=== PATIENT | female | born 1930 | race Caucasian/White ===

== ENCOUNTER 2018-02-24 14:59 | Inpatient (IN) ==
--- NOTE | 2018-02-24 16:28 | XRay Report ---
CLINICAL INFORMATION: Trauma COMPARISON: 03/26/2017 FINDINGS: Moderate cardiomegaly is unchanged. Mediastinum and pulmonary vessels are normal. COPD changes with interstitial fibrosis in the mid and both lower lungs again noted. No new pulmonary abnormalities. No effusions IMPRESSION: Moderate cardiomegaly COPD the interstitial fibrosis in the left mid and both lower lungs stable. No acute disease no posttraumatic change Interpreted and Authenticated by: Papa Monique 02/24/18
--- NOTE | 2018-02-24 16:30 | Cat Scan Report ---
CLINICAL INFORMATION: Fall - now with confusion COMPARISON: 02/22/2018 TECHNIQUE: 2.5 mm helical slices were obtained in the skull base to vertex. Following reconstruction, axial reformatted images were reviewed at bone and parenchymal windows. The exam was performed using radiation dose optimization techniques including, but not limited to, automated exposure control, adjustment of the mA and/or kV according to patient size and use of iterative reconstruction technique. FINDINGS: The ventricles, sulci, fissures, and cisterns are symmetrically enlarged compatible with mild age-related atrophy - no extra-axial fluid collections appreciated. Patchy chronic ischemic changes in the deep cerebral white matter are stable. There is no intracerebral hemorrhage, mass effect or edema. Bone windows no fracture or other osseous abnormality IMPRESSION: Mild atrophy and patchy chronic ischemic changes in the cerebral white matter, expected for age, are stable. Interpreted and Authenticated by: Papa Monique 02/24/18
[2018-02-24 16:39] LABS: Mean Cell Volume 91.6 fL (80.0-100.0); Mean Corpuscular HGB Conc 33.4 g/dL (31.0-36.0); Mean Corpuscular Hemoglobin 30.6 pg (26.0-34.0); Platelet Count 231 K/mcL (140-440); RBC 4.35 M/mcL (4.00-5.20); Red Cell Distribution Width 14.1 % (11.5-14.5)
[2018-02-24 16:50] LABS: Appearance,Urine CLEAR; Bacteria,Urine 0 /hpf (0); Bilirubin,Urine NEG (NEG); Color,Urine YELLOW; Glucose,Urine (UA) NEGATIVE (NEG); Leukocyte Esterase,Urine 25 /uL (NEG); Mucus,Urine FEW /hpf (0); Protein,Urine NEG (NEG); Specific Gravity,Urine 1.014 (1.000-1.035); Urine Amorphous Crystals FEW /hpf (0); Urine Blood 0.03 mg/dL (<0.03); Urine Hyaline Cast 1 /lpf (0-2); Urine RBC 2 /hpf (0-1); Urine Squamous Epithelial Cell < 1 /hpf (0-4); Urine WBC 25 /hpf (0-4); Urobilinogen,Urine NEG (NEG)
[2018-02-24 16:59] LABS: ALT/SGPT 12 U/l (0-40); Albumin 4.3 gm/dL (3.2-5.2); Albumin/Globulin Ratio 1.3 (1.0-2.3); Alkaline Phosphatase 66 U/L (39-117); Blood Urea Nitrogen 27 mg/dl (8-23)
[2018-02-24 17:09] LABS: Band Neutrophils % 2 % (0-10); Lymphocytes % 8 % (15-49); Monocytes % (Manual) 6 % (1-12); Platelet Estimate NORMAL (NORMAL); RBC Morphology NORMAL (NORMAL); Segmented Neutrophils % 84 % (38-78)
--- NOTE | 2018-02-24 17:15 | Emergency Department Note ---
Weakness HPI - General Chief complaint: Weakness Stated complaint: fall, weakness, unable to care for self Time Seen by Provider: 02/24/18 15:49 Source: patient, EMS Mode of arrival: EMS Limitations: no limitations - History of Present Illness HPI Narrative: This 87-year-old female comes emergency room after a friend of a family member ( patient's son that not long ago and who checks on patient) found patient in the same describes that she had been dressed and when she was sent home from this emergency room 2 days ago. She was acting like she was eating the length off of her close. She had bottles of shampoo etc. around her. He believes that she had been in the bathtub for a prolonged period of time at least since 7 this morning but uncertain exactly. There is report that there were feces in multiple places in the home (several staff members were told these were human feces; social science teacher documented cat feces). Because of her circumstances, clinical social worker was consulted early on in her care and recommended that this patient not be returned to her home due to self-care deficit. Also, she receives Meals On Wheels, and there was food in prepared Meals on Wheels 4 packages in her house and uneaten. REVIEW OF SYSTEMS: Totally unreliable. Patient gave at least 3 different descriptions is why she was here in the emergency room 2 different staff members including myself. She does not seem to consistently indicate pain although to me indicated she had some in her left hip bone area but pointed to her left anterior superior iliac spine area and that there was a lump there. I could not stimulate pain or identify cause or source or lump in the area. - Related Data Home Medications Medication Instructions Recorded Confirmed ALPRAZolam [Xanax] 1 mg PO BIDP PRN 04/18/16 02/22/18 Previous Rx's Medication Instructions Recorded Doxycycline Hyclate [Vibramycin] 100 mg PO BID #14 cap 11/07/17 Lisinopril [Zestril] 2.5 mg PO DAILY #30 tab 11/07/17 Ondansetron HCl [Zofran ODT] 4 mg SL Q4-6HP PRN #14 tab 02/03/18 Amoxicillin 500 mg PO Q12H #14 tab 02/22/18 Allergies Allergy/AdvReac Type Severity Reaction Status Date / Time codeine AdvReac Mild Other Verified 02/24/18 15:04 Sulfa (Sulfonamide AdvReac Mild Congested Verified 02/24/18 15:04 Antibiotics) Past Medical History - Past Medical History [facility] Narrative: All Active Problems Urinary tract infection (Acute) Vertebral compression fracture (Acute) Community acquired pneumonia (Acute) Bladder infection, acute (Acute) Fall from slip, trip, or stumble (Acute) Contusion of face (Acute) Contusion of lip, initial encounter (Acute) Wedge compression fracture of T1 vertebra with routine healing (Acute) Traumatic compression fracture of T8 thoracic vertebra (Acute) Syncope due to orthostatic hypotension (Acute) Scalp laceration (Acute) Closed head injury (Acute) Fall (Acute) Lung disease (Acute) Pericardial effusion (Acute) Cardiomegaly (Acute) Hydroureter (Acute) Hydronephrosis (Acute) Kidney stone on right side (Acute) History of tonsillectomy and adenoidectomy (Acute) H/O: hysterectomy (Acute) Cataracts, bilateral (Acute) H/O knee surgery (Acute) History of hip surgery (Acute) Hypothyroidism (Acute) Depression (Acute) COPD (chronic obstructive pulmonary disease) (Acute) Anxiety (Acute) Hyperlipemia (Acute) Pulmonary fibrosis (Chronic) Dementia Past Surgical History History of tonsillectomy and adenoidectomy (Acute) H/O: hysterectomy (Acute) H/O knee surgery (Acute) History of hip surgery (Acute) Family History Mother Malignant neoplasm of ovary Father Family history of malignant neoplasm of stomach Medical history: Reports: COPD, hyperlipidemia, thyroid disease (Was low in the past but not currently on any medication or replacement.), TIA, other ( pulmonary fibrosis. Bilateral cataracts (surgically treated). NO BLOOD THINNERS aspirin.). Denies: cancer, coronary artery disease, DM, hypertension ( Sometimes has had low blood pressure.), myocardial infarction, osteoporosis Psychiatric history: Reports: anxiety, depression SHOW CARD LETTERER history: Reports: non-contributory Surgical history ED: Reports: appendectomy, cataract (Bilateral), hip replacement (Bilateral replacement. 2004), hysterectomy, knee replacement, orthopedic, other (knee. Back surgery 1970 at L4-5), tonsillectomy (With adenoidectomy) - Social History smoking status: Former smoker Alcohol use: Reports: None Drug use: Reports: none. Denies: marijuana Physical Exam Limitations: no limitations General appearance: alert, in no apparent distress Head: atraumatic, normocephalic Eye: Present: EOMI Neck: Present: trachea midline. Absent: lymphadenopathy, thyromegaly Respiratory: Present: normal lung sounds bilaterally. Absent: respiratory distress, wheezes, stridor, accessory muscle use, prolonged expiratory phase Cardiovascular: Present: regular rate, normal rhythm. Absent: systolic murmur, diastolic murmur Abdominal: Present: soft. Absent: distention, tenderness, guarding, rebound, rigidity, organomegaly, mass Extremities: Absent: pedal edema, pretibial edema, calf tenderness Back: Absent: spinous process tenderness Neurological: Present: alert Patient oriented to: Present: person. Absent: place, time Speech: Present: fluid speech. Absent: receptive aphasia, expressive aphasia Cranial nerves: EOM function (II, III, IV, ): Normal, tongue deviation (XII): Normal Psychiatric: Present: normal affect, normal mood. Absent: depressed, agitated, anxious Skin: Present: warm, dry Course Vital Signs Temperature 98.0 F 02/24/18 15:00 Pulse Rate 90 02/24/18 15:00 Respiratory Rate 20 02/24/18 15:00 Blood Pressure 184/119 02/24/18 15:00 Pulse Oximetry (%) 96 02/24/18 15:00 Temperature 98.0 F 02/24/18 15:00 Pulse Rate 90 02/24/18 15:00 Respiratory Rate 20 02/24/18 15:00 Blood Pressure 184/119 02/24/18 15:00 Pulse Oximetry (%) 96 02/24/18 15:00 Weakness - Lab Data Result diagrams: 02/24/18 15:50 02/24/18 15:50 Lab Results 02/24/18 02/24/18 02/24/18 Range/Units 15:48 15:50 15:50 WBC 12.5 H (4.5-11.0) K/mcL RBC 4.35 (4.00-5.20) M/mcL Hgb 13.3 (12.0-15.0) g/dL Hct 39.9 (36.0-48.0) % MCV 91.6 (80.0-100.0) fL MCH 30.6 (26.0-34.0) pg MCHC 33.4 (31.0-36.0) g/dL RDW 14.1 (11.5-14.5) % Plt Count 231 (140-440) K/mcL MPV 8.6 (7.4-10.4) fL Band Neutrophils % Not Reportable Sodium 140 (133-145) mmol/L Potassium 3.8 (3.3-5.1) mmol/L Chloride 101 (96-108) mmol/L Carbon Dioxide 23 (22-30) mmol/L Anion Gap 16.0 (8-16) BUN 27 H (8-23) mg/dl Creatinine 1.4 H (0.6-1.1) mg/dl GFR Calculation 34 Glucose 128 H (70-105) mg/dL Calcium 9.7 (8.6-10.4) mg/dl Total Bilirubin 0.8 (0.0-1.0) mg/dL AST 28 (0-37) U/l ALT 12 (0-40) U/l Alkaline Phosphatase 66 (39-117) U/L Total Protein 7.5 (5.9-8.4) gm/dL Albumin 4.3 (3.2-5.2) gm/dL Globulin 3.2 (2.2-3.7) gm/dL Albumin/Globulin Ratio 1.3 (1.0-2.3) Urine Color Yellow Urine Appearance Clear Urine pH 5.0 (5.0-9.0) Ur Specific [place] 1.014 (1.000-1.035) Urine Protein Neg (NEG) mg/dL Urine Glucose (UA) Negative (NEG) mg/dL Urine Ketones 20 A (NEG) mg/dL Urine Occult Blood 0.03 A (<0.03) mg/dL Urine Nitrate Neg (NEG) Urine Bilirubin Neg (NEG) mg/dL Urine Urobilinogen Neg (NEG) mg/dL Ur Leukocyte Esterase 25 A (NEG) /uL Urine RBC 2 H (0-1) /hpf Urine WBC 25 H (0-4) /hpf Ur Squamous Epith Cells < 1 (0-4) /hpf Amorphous Crystals Few A (0) /hpf Urine Bacteria 0 (0) /hpf Hyaline Casts 1 (0-2) /lpf Urine Mucus Few (0) /hpf Ur Culture Indicated? Yes Disposition Pt seen by SHOT COAT TENDER/PA only: No Clinical Impression: Complicated UTI (urinary tract infection), Self-care deficit for feeding, bathing, and toileting Elevated WBC count Qualifiers: Leukocytosis type: leukemoid reaction Qualified Code(s): D72.823 - Leukemoid reaction Dementia Qualifiers: Dementia type: unspecified type Dementia behavioral disturbance: with behavioral disturbance Qualified Code(s): F03.91 - Unspecified dementia with behavioral disturbance Summary: With patient's significant self-care deficit (dementia related), her UTI and white count, she is unable to be treated outpatient, and long-term care not able to be arranged. I spoke with Dr. Chopra, hospitalist, who kindly accepted patient's care. Urine culture ordered as well as a single dose of levaquin. Disposition: Xfer As Inpt ([facility]) Condition: Fair Referrals: Amadeo Maki DO [Primary Care Provider] -
[2018-02-24] MEDS ORDERED: cefTRIAXone 1 GM VIAL IV ONE (17:24)
[2018-02-24] MEDS ORDERED: LEVOFLOXACIN 250 MG/50 ML BAG IV ONE (17:25)
[2018-02-24] MEDS ORDERED: LEVOFLOXACIN 500 MG/100 ML BAG IV ONE (18:38)
--- NOTE | 2018-02-24 18:55 | Internal Med History&Physical ---
Medical - H&P: [facility] Patient information: Note initiated : 02/24/18 at 6:52 pm Service Date, if different from initiated Date: [] Patient: Josephine Lowery a 87 y/o F admitted on for fall, weakness, unable to care for self. Chief Complaint: [] Chief complaint: found in tub delirious History of present illness: Ms. Lowery is a 87 year old F recent EMD visits for falls and some confusion. Also hx of UTI. Today found in messy house with cat and human feces in home on floor. The patient not eating and dehydrated. History giving changes and not reliable. Medical - H&P: PMH Medical history: pulmonary fibrosis Social history: son few years ago. Has a friend of her sons that checks on her and found her today. Pt say her last sister this morning but Im told sister was contacted today and is not . Pt says doesnt want CPR. If dying make her comfortable. Functional capacity: independent ambulation Smoking status: Smoker, status unknown Drug use: none Alcohol use: rarely Medical - H&P: Meds Home Medications Medication Instructions Recorded Confirmed Type ALPRAZolam [Xanax] 1 mg PO BIDP PRN 04/18/16 02/22/18 History Doxycycline Hyclate [Vibramycin] 100 mg PO BID #14 cap 11/07/17 Rx Lisinopril [Zestril] 2.5 mg PO DAILY #30 tab 11/07/17 Rx Ondansetron HCl [Zofran ODT] 4 mg SL Q4-6HP PRN #14 tab 02/03/18 Rx Amoxicillin 500 mg PO Q12H #14 tab 02/22/18 Rx Allergies Allergy/AdvReac Type Severity Reaction Status Date / Time codeine AdvReac Mild Other Verified 02/24/18 15:04 Sulfa (Sulfonamide AdvReac Mild Congested Verified 02/24/18 15:04 Antibiotics) Medical - H&P: Exam - Constitutional Vitals: Temp Pulse Resp BP Pulse Ox 98.0 F 90 20 184/119 96 02/24/18 15:00 02/24/18 15:00 02/24/18 15:00 02/24/18 15:00 02/24/18 15:00 General appearance: average body habitus, cooperative, no acute distress - Head Head exam: Present: atraumatic - Expanded Head Exam Head exam: Absent: contusion, CSF rhinorrhea, raccoon eyes - Eye Eye exam: Absent: conjunctival injection, scleral icterus - Expanded ENT Exam Nose & sinuses exam: Present: external nose, grossly normal Mouth exam: Absent: drooling, muffled voice - Neck Neck exam: Present: full ROM. Absent: meningismus - Respiratory Respiratory exam: Present: rales Additional comments: mild basilar crackles fine crackles. - Cardiovascular Cardiovascular exam: Present: normal rate and rhythm - GI/Abdominal GI/Abdominal exam: Present: normal bowel sounds, soft. Absent: distended, firm , guarding - Neurological Exam Neurological exam: Present: alert, altered Additional comments: oriented to hospital doesnt know date or year. - Skin Skin exam: Present: dry, warm. Absent: cyanosis, diaphoretic Medical - H&P: Reslt - Labs CBC & Chem 7: 02/24/18 15:50 02/24/18 15:50 Labs: Short CBC 02/24/18 Range/Units 15:50 WBC 12.5 H (4.5-11.0) K/mcL Hgb 13.3 (12.0-15.0) g/dL Hct 39.9 (36.0-48.0) % Plt Count 231 (140-440) K/mcL BMP 02/24/18 15:50 Sodium 140 Potassium 3.8 Chloride 101 Carbon Dioxide 23 BUN 27 H Creatinine 1.4 H Glucose 128 H Calcium 9.7 Cardiac Enzymes 02/24/18 Range/Units 17:07 Total Creatine Kinase 1034 H (24-170) IU/L Liver Function 02/24/18 Range/Units 15:50 Total Bilirubin 0.8 (0.0-1.0) mg/dL AST 28 (0-37) U/l ALT 12 (0-40) U/l Alkaline Phosphatase 66 (39-117) U/L Albumin 4.3 (3.2-5.2) gm/dL Urine 02/24/18 Range/Units 15:48 Urine Color Yellow Urine Appearance Clear Urine pH 5.0 (5.0-9.0) Ur Specific [place] 1.014 (1.000-1.035) Urine Protein Neg (NEG) mg/dL Urine Glucose (UA) Negative (NEG) mg/dL Medical - H&P: A/P (1) Complicated UTI (urinary tract infection) Current visit: Yes Status: Acute recent abx. will treat with Rocephin and await urine and blood culture results. Pt with confusion and acute kidney injury. Will hydrate. (2) Acute kidney injury (nontraumatic) Current visit: Yes Status: Acute hydrate and hold nsaids and aranza and ARB (3) Delirium due to another medical condition, acute, hypoactive Current visit: Yes Status: Acute hydrate and treat UTI. recent falls and prior to December had been clear of mind. If not improved by tomorrow will proceed with MRI to look for CVA or malignancy. (4) Dementia Current visit: Yes Status: Acute mild with acute delirium (5) Rhabdomyolysis Current visit: Yes Status: Acute found down. will need therapy and placement in SNF (6) Acute renal failure due to rhabdomyolysis Current visit: Yes Status: Acute hydrate and follow kidney function and cpk - Narrative A/P Narrative: 70 mins spent in evaluation and coordination of care for this patient today
[2018-02-24] MEDS ORDERED: LACTATED RINGERS 1,000 ML IV ONE ×2 (19:16→20:35)
[2018-02-24] MEDS ORDERED: NACL 0.9% W/KCL 20MEQ 1,000 ML IV SCH (19:30)
[2018-02-24] MEDS ORDERED: 0.9 % SODIUM CHLORIDE 1,000 ML IV SCH (20:35)
[2018-02-24] MEDS ORDERED: cefTRIAXone 1 GM in DEXTROSE 5% IN WATER 50 ML IV SCH (20:35)
[2018-02-24] MEDS: NACL 0.9% W/KCL 20MEQ 1,000 ML IV SCH (22:15)
[2018-02-24] MEDS: ACETAMINOPHEN 325 MG TABLET PO PRN (22:44)
[2018-02-24] MEDS: HEPARIN 5,000 UNIT/ML VIAL SQ SCH (22:44)
[2018-02-24] MEDS: DOCUSATE SODIUM 100 MG CAPSULE PO SCH (22:44)
[2018-02-24] MEDS: 0.9 % SODIUM CHLORIDE 10 ML SYRINGE IV SCH (22:45)
[2018-02-24] MEDS ORDERED: LORazepam 1 MG TABLET PO PRN (23:12)
[2018-02-24] MEDS ORDERED: LORazepam 1 MG TABLET ONE (23:34)
[2018-02-25] MEDS: NACL 0.9% W/KCL 20MEQ 1,000 ML IV SCH ×5 (05:25→21:49)
[2018-02-25 05:30] LABS: Basophils # (Auto) 0.1 K/mcL (0.0-0.3); Basophils % (Auto) 0.9 % (0.0-2.0); Eosinophils # (Auto) 0.1 K/mcL (0.0-0.7); Eosinophils % (Auto) 0.5 % (0.0-7.0); Granulocytes % (Auto) 78.6 % (38.0-78.0); Lymphocytes # (Auto) 1.4 K/mcL (1.5-4.8); Lymphocytes % (Auto) 13.5 % (15.5-49.0); Mean Cell Volume 91.6 fL (80.0-100.0); Mean Corpuscular HGB Conc 33.9 g/dL (31.0-36.0); Mean Corpuscular Hemoglobin 31.1 pg (26.0-34.0); Monocytes # (Auto) 0.7 K/mcL (0.1-0.9); Monocytes % (Auto) 6.5 % (1.0-12.0); Platelet Count 194 K/mcL (140-440); RBC 3.55 M/mcL (4.00-5.20)
[2018-02-25] MEDS: 0.9 % SODIUM CHLORIDE 10 ML SYRINGE IV SCH ×3 (05:51→22:05)
[2018-02-25 06:00] LABS: Blood Urea Nitrogen 24 mg/dl (8-23)
[2018-02-25] MEDS: HEPARIN 5,000 UNIT/ML VIAL SQ SCH ×2 (09:55→21:31)
[2018-02-25] MEDS: DOCUSATE SODIUM 100 MG CAPSULE PO SCH ×2 (09:55→21:49)
[2018-02-25] MEDS ORDERED: POTASSIUM PHOSPHATE 20 MEQ in DEXTROSE 5% IN WATER 250 ML IV ONE (10:45)
--- NOTE | 2018-02-25 10:51 | Internal Med Progress Note ---
Medical - PN: Subj Patient information: Note initiated : 02/25/18 at 10:49 am Service Date, if different from initiated Date: [] Patient: Josephine Lowery 87 y/o F admitted on 02/24/18 for fall, weakness, unable to care for self. Chief Complaint: [] Interval history: pt still confused overnight talking about being in a buffet line. Says date is may 28, 2018. says recalls being in bathtub but couldnt get up. - Constitutional Vitals: Vital Signs Temp Pulse Resp BP Pulse Ox 98.2 F 89 16 157/89 96 02/25/18 08:17 02/25/18 03:52 02/25/18 08:17 02/25/18 08:17 02/25/18 08:17 Period Temp Pulse Resp BP Sys/Rodriguez Pulse Ox Last 24 Hr 97.5 F-98.2 F 88-96 10-29 129-184/81-119 91-98 Intake and Output 02/24/18 02/25/18 02/25/18 21:59 05:59 13:59 Intake Total 1100 / 1100 2360 / 2360 Output Total 600 / 600 Balance 1100 / 1100 1760 / 1760 Weight 146 lb 6.4 oz Intake & Output: Intake & Output 02/24/18 02/25/18 02/25/18 21:59 05:59 13:59 Intake Total 1100 / 1100 2360 / 2360 Output Total 600 / 600 Balance 1100 / 1100 1760 / 1760 Weight 146 lb 6.4 oz Intake: IV 1100 / 1100 2000 / 2000 LEVAQUIN 500 mg In 100 ml @ 0 100 / 100 mls/hr IV .STK-MED ONE Rx#: [id number] NaCl 0.9% W/KCl 20Meq 1000ML 1, 1000 / 1000 000 ml @ 150 mls/hr IV .Q6H40M DELLA Rx#:[id number] Oral 360 / 360 Output: Urine Catheter Amount 600 / 600 Other: Meal Crackers Percent of Meal Consumed 100% Feeding Ability Independent Urine Appearance Uretheral (Jones) Clear Urine Color Uretheral (Jones) Light Oumou Urine Odor Uretheral (Jones) Normal # of times incontinent of 1 Bowels - Respiratory Respiratory exam: Present: normal respiratory exam - Cardiovascular Cardiovascular exam: Present: normal rate and rhythm - GI/Abdominal GI/Abdominal exam: Present: normal bowel sounds, soft - Extremities Exam Extremities exam: Absent: calf tenderness Additional comments: left calf larger than right but not tender or swollen or red - Psychiatric Psychiatric exam: Absent: flat affect - Skin Skin exam: Present: dry, warm Medical - PN: Obj Da - Labs CBC & Chem 7: 02/25/18 04:00 02/25/18 04:00 Labs: Abnormal Lab Results 02/25/18 02/25/18 02/25/18 04:00 04:00 04:00 WBC RBC 3.55 L Hgb 11.0 L Hct 32.5 L Gran % 78.6 H Lymph % (Auto) 13.5 L Gran # 8.2 H Lymph # (Auto) 1.4 L Seg Neutrophils % Lymphocytes % ESR 21 H BUN 24 H Creatinine 1.2 H Glucose Phosphorus 2.2 L Total Creatine Kinase Urine Ketones Urine Occult Blood Ur Leukocyte Esterase Urine RBC Urine WBC Amorphous Crystals 02/24/18 02/24/18 02/24/18 17:07 15:50 15:50 WBC 12.5 H RBC Hgb Hct Gran % Lymph % (Auto) Gran # Lymph # (Auto) Seg Neutrophils % 84 H Lymphocytes % 8 L ESR BUN 27 H Creatinine 1.4 H Glucose 128 H Phosphorus Total Creatine Kinase 1034 H Urine Ketones Urine Occult Blood Ur Leukocyte Esterase Urine RBC Urine WBC Amorphous Crystals 02/24/18 15:48 WBC RBC Hgb Hct Gran % Lymph % (Auto) Gran # Lymph # (Auto) Seg Neutrophils % Lymphocytes % ESR BUN Creatinine Glucose Phosphorus Total Creatine Kinase Urine Ketones 20 A Urine Occult Blood 0.03 A Ur Leukocyte Esterase 25 A Urine RBC 2 H Urine WBC 25 H Amorphous Crystals Few A Meds: Medications Acetaminophen (Tylenol) 650 mg PO Q6HP PRN PRN Reason: PAIN/FEVER > 101 Last Admin: 02/24/18 22:44 Dose: 650 mg Ceftriaxone Sodium (Rocephin) 1 gm IV Q24H [facility] Docusate Sodium (Colace) 100 mg PO BID [facility] Last Admin: 02/25/18 09:55 Dose: 100 mg Heparin Sodium (Porcine) (Heparin) 5,000 unit SQ Q12 EDLLA Last Admin: 02/25/18 09:55 Dose: 5,000 unit Potassium Chloride/Sodium Chloride (Nacl 0.9% W/Kcl 20meq 1000ml) 1,000 mls @ 150 mls/hr IV .Q6H40M [facility] Last Admin: 02/25/18 08:56 Dose: Not Given Potassium Phosphate 20 meq/ (Dextrose) 254.5455 mls @ 127.273 mls/hr IV ONCE ONE Stop: 02/25/18 12:44 Lorazepam (Ativan) 1 mg PO HSP PRN PRN Reason: Insomnia Sodium Chloride (Saline Flush) 10 ml IV Q8 [facility] Last Admin: 02/25/18 05:51 Dose: Not Given Medical - PN: A/P - Time Spent With Patient Total time spent is greater than 50% in coordination of care (as documented) at patient's floor/unit and/or counseling patient: Greater than 35 minutes (1) Complicated UTI (urinary tract infection) Status: Acute Assessment and plan: continue rocephin and follow mentation Current Visit: Yes (2) Acute kidney injury (nontraumatic) Status: Acute Assessment and plan: improving with hydration Current Visit: Yes (3) Delirium due to another medical condition, acute, hypoactive Status: Acute Assessment and plan: suspect mild underlying dementia. will hold off on antipsychotics for now. Current Visit: Yes (4) Dementia Status: Acute Current Visit: Yes (5) Rhabdomyolysis Status: Acute Assessment and plan: cont with fluid and phosphorus replacement Current Visit: Yes (6) Acute renal failure due to rhabdomyolysis Status: Acute Current Visit: Yes Medical - PN: Qual - VTE Deep Vein Thrombosis/Pulmonary Embolism Present on Admission: No
[2018-02-25] MEDS: cefTRIAXone 1 GM VIAL IV SCH (10:54)
[2018-02-25] MEDS ORDERED: ALPRAZolam 0.5 MG TABLET PO PRN (16:13)
[2018-02-25] MEDS ORDERED: LISINOPRIL 5 MG TABLET PO ONE (16:31)
[2018-02-25] MEDS: POTASSIUM CHLORIDE 20 MEQ TABLET PO SCH (18:22)
[2018-02-25] MEDS: ACETAMINOPHEN 325 MG TABLET PO PRN (18:39)
[2018-02-26] MEDS: NACL 0.9% W/KCL 20MEQ 1,000 ML IV SCH (04:59)
[2018-02-26] MEDS: 0.9 % SODIUM CHLORIDE 10 ML SYRINGE IV SCH ×4 (05:01→22:19)
[2018-02-26 06:26] LABS: Blood Urea Nitrogen 16 mg/dl (8-23)
[2018-02-26] MEDS: DOCUSATE SODIUM 100 MG CAPSULE PO SCH ×3 (08:50→19:57)
[2018-02-26] MEDS: POTASSIUM CHLORIDE 20 MEQ TABLET PO SCH (08:50)
[2018-02-26] MEDS: HEPARIN 5,000 UNIT/ML VIAL SQ SCH ×2 (08:50→19:58)
[2018-02-26] MEDS: ACETAMINOPHEN 325 MG TABLET PO PRN (08:51)
[2018-02-26] MEDS: LISINOPRIL 5 MG TABLET PO SCH ×2 (08:54→10:51)
[2018-02-26] MEDS: cefTRIAXone 1 GM VIAL IV SCH (09:40)
[2018-02-26] MEDS ORDERED: LISINOPRIL 5 MG TABLET PO ONE (10:45)
[2018-02-26] MEDS ORDERED: DEXTROSE 5%-1/2NS 1,000 ML IV SCH (10:45)
--- NOTE | 2018-02-26 14:25 | Internal Med Progress Note ---
Medical - PN: Subj Patient information: Note initiated : 02/26/18 at 2:23 pm Service Date, if different from initiated Date: [] Patient: Josephine Lowery 87 y/o F admitted on 02/24/18 for Fall, Weakness, Unable to care for Self/UTI. Chief Complaint: [] Interval history: Patient is more alert and oriented. She is accompanied by her friend Agus who found her in her tub. Agus states that the patient was seen on Saturday by him and then when he saw her on Saturday she was wearing a hospital pants and had a hospital bracelet indicating that she had been to the emergency department. Patient had been started on urinary tract infection antibiotics but had not been able to pick them up. She has no way to get them. Patient is typically alert and oriented but has had delirium with urinary tract infection on previous occasion. Urine output has been very good and light colored Pertinent ROS: No fevers no longer agitated - Constitutional Vitals: Vital Signs Temp Pulse Resp BP Pulse Ox 98.4 F 80 16 162/89 93 02/26/18 09:36 02/26/18 08:00 02/26/18 04:07 02/26/18 08:24 02/26/18 08:00 Period Temp Pulse Resp BP Sys/Rodriguez Pulse Ox Last 24 Hr 97.9 F-98.4 F 80-85 16-18 139-193/70-99 92-99 Intake and Output 02/26/18 02/26/18 02/26/18 05:59 13:59 21:59 Intake Total 1000 / 1000 867 / 867 Output Total 1150 / 1150 900 / 900 Balance -150 / -150 -33 / -33 Intake & Output: Intake & Output 02/26/18 02/26/18 02/26/18 05:59 13:59 21:59 Intake Total 1000 / 1000 867 / 867 Output Total 1150 / 1150 900 / 900 Balance -150 / -150 -33 / -33 Intake: IV 1000 / 1000 867 / 867 NaCl 0.9% W/KCl 20Meq 1000ML 1, 1000 / 1000 867 / 867 000 ml @ 150 mls/hr IV .Q6H40M [facility] Rx#:[id number] Output: Urine Catheter Amount 1150 / 1150 900 / 900 Other: Urine Appearance Clear Urine Color Straw Urine Odor Normal General appearance: average body habitus, cooperative, no acute distress - Respiratory Respiratory exam: Present: rales Additional comments: Left base - Cardiovascular Cardiovascular exam: Present: normal rate and rhythm - Extremities Exam Extremities exam: Present: pedal edema (trace) Medical - PN: Obj Da - Labs CBC & Chem 7: 02/25/18 04:00 02/26/18 04:00 Labs: Abnormal Lab Results 02/26/18 02/25/18 02/25/18 04:00 04:00 04:00 WBC RBC 3.55 L Hgb 11.0 L Hct 32.5 L Gran % 78.6 H Lymph % (Auto) 13.5 L Gran # 8.2 H Lymph # (Auto) 1.4 L Seg Neutrophils % Lymphocytes % ESR BUN 24 H Creatinine 1.2 H Glucose Calcium 8.5 L Phosphorus 2.2 L Total Creatine Kinase Urine Ketones Urine Occult Blood Ur Leukocyte Esterase Urine RBC Urine WBC Amorphous Crystals 02/25/18 02/24/18 02/24/18 04:00 17:07 15:50 WBC RBC Hgb Hct Gran % Lymph % (Auto) Gran # Lymph # (Auto) Seg Neutrophils % Lymphocytes % ESR 21 H BUN 27 H Creatinine 1.4 H Glucose 128 H Calcium Phosphorus Total Creatine Kinase 1034 H Urine Ketones Urine Occult Blood Ur Leukocyte Esterase Urine RBC Urine WBC Amorphous Crystals 02/24/18 02/24/18 15:50 15:48 WBC 12.5 H RBC Hgb Hct Gran % Lymph % (Auto) Gran # Lymph # (Auto) Seg Neutrophils % 84 H Lymphocytes % 8 L ESR BUN Creatinine Glucose Calcium Phosphorus Total Creatine Kinase Urine Ketones 20 A Urine Occult Blood 0.03 A Ur Leukocyte Esterase 25 A Urine RBC 2 H Urine WBC 25 H Amorphous Crystals Few A Meds: Medications Acetaminophen (Tylenol) 650 mg PO Q6HP PRN PRN Reason: PAIN/FEVER > 101 Last Admin: 02/26/18 08:51 Dose: 650 mg Alprazolam (Xanax) 1 mg PO BIDP PRN PRN Reason: Anxiety Last Admin: 02/25/18 21:56 Dose: 1 mg Ceftriaxone Sodium (Rocephin) 1 gm IV Q24H DELLA Last Admin: 02/26/18 09:40 Dose: 1 gm Docusate Sodium (Colace) 100 mg PO BID DELLA Last Admin: 02/25/18 21:49 Dose: Not Given Heparin Sodium (Porcine) (Heparin) 5,000 unit SQ Q12 [facility] Last Admin: 02/26/18 08:50 Dose: 5,000 unit Dextrose/Sodium Chloride (Dextrose 5%-1/2ns Iv Solution) 1,000 mls @ 100 mls/ hr IV .Q10H [facility] Last Admin: 02/26/18 10:47 Dose: 100 mls/hr Lisinopril (Zestril) 5 mg PO DAILY [facility] Lorazepam (Ativan) 1 mg PO HSP PRN PRN Reason: Insomnia Last Admin: 02/25/18 21:57 Dose: 1 mg Sodium Chloride (Saline Flush) 10 ml IV Q8 [facility] Last Admin: 02/26/18 05:01 Dose: Not Given Medical - PN: A/P - Time Spent With Patient Total time spent is greater than 50% in coordination of care (as documented) at patient's floor/unit and/or counseling patient: 25 - 35 minutes (1) Complicated UTI (urinary tract infection) Status: Acute Assessment and plan: continue rocephin. Mentation improving. Initiate physical and occupational therapy Current Visit: Yes (2) Acute kidney injury (nontraumatic) Status: Acute Assessment and plan: Much improved with IV fluids. Continue with regular diet and saline lock IV fluids Current Visit: Yes (3) Delirium due to another medical condition, acute, hypoactive Status: Acute Assessment and plan: suspect mild underlying dementia. Delirium nearly resolved Current Visit: Yes (4) Dementia Status: Acute Current Visit: Yes (5) Rhabdomyolysis Status: Acute Assessment and plan: Initiate physical and occupational therapy. [facility] and anticipate that will be her discharge plan Current Visit: Yes (6) Acute renal failure due to rhabdomyolysis Status: Acute Assessment and plan: Returned to baseline Current Visit: Yes Medical - PN: Qual - VTE Deep Vein Thrombosis/Pulmonary Embolism Present on Admission: No
[2018-02-26] MEDS ORDERED: ACETAMINOPHEN 325 MG TABLET PO PRN (16:47)
[2018-02-26] MEDS ORDERED: ALPRAZolam 0.5 MG TABLET PO PRN (16:47)
[2018-02-26] MEDS ORDERED: LORazepam 1 MG TABLET PO PRN (21:00)
[2018-02-27 05:46] LABS: Basophils # (Auto) 0.1 K/mcL (0.0-0.3); Basophils % (Auto) 1.7 % (0.0-2.0); Eosinophils # (Auto) 0.5 K/mcL (0.0-0.7); Eosinophils % (Auto) 7.5 % (0.0-7.0); Granulocytes % (Auto) 56.6 % (38.0-78.0); Lymphocytes # (Auto) 1.8 K/mcL (1.5-4.8); Lymphocytes % (Auto) 26.4 % (15.5-49.0); Mean Cell Volume 92.1 fL (80.0-100.0); Mean Corpuscular HGB Conc 32.9 g/dL (31.0-36.0); Mean Corpuscular Hemoglobin 30.3 pg (26.0-34.0); Monocytes # (Auto) 0.5 K/mcL (0.1-0.9); Monocytes % (Auto) 7.8 % (1.0-12.0); Platelet Count 182 K/mcL (140-440); RBC 3.27 M/mcL (4.00-5.20); Red Cell Distribution Width 13.6 % (11.5-14.5)
[2018-02-27 06:05] LABS: Blood Urea Nitrogen 21 mg/dl (8-23); Creatine Kinase 145 IU/L (24-170)
[2018-02-27] MEDS: 0.9 % SODIUM CHLORIDE 10 ML SYRINGE IV SCH (06:39)
[2018-02-27] MEDS ORDERED: LISINOPRIL 5 MG TABLET PO SCH ×2 (09:00)
[2018-02-27] MEDS ORDERED: cefTRIAXone 1 GM VIAL IV SCH (09:00)
[2018-02-27] MEDS: HEPARIN 5,000 UNIT/ML VIAL SQ SCH (09:01)
[2018-02-27] MEDS: DOCUSATE SODIUM 100 MG CAPSULE PO SCH (09:02)
--- NOTE | 2018-02-27 12:15 | Ultrasound Report ---
CLINICAL INFORMATION: uti and delirium, hx UPJ obstuction COMPARISON: None. FINDINGS: Both kidneys are normal in size, position and configuration: The right is 12 x 7.5 cm and the left is 10 x 5 cm. Both kidneys are mildly hyperechoic compatible with with advanced age and, perhaps, mild medical renal disease. No solid cystic lesions or stones. Moderate right and mild/moderate left hydronephrosis is appreciated. Urinary bladder volume is 288 cc the patient would not void. No focal bladder lesions IMPRESSION: Moderately right and [id number] left hydronephrosis and moderate distention urinary bladder. These findings are typically related enlarged prostate (or other cause for bladder outlet obstruction). Neurogenic bladder may also have this appearance Interpreted and Authenticated by: Papa Monique 02/27/18
--- NOTE | 2018-02-27 13:36 | Discharge Summary ---
Medical - DS: Prov Patient information: Note initiated : 02/27/18 at 1:29 pm Service Date, if different from initiated Date: [] Patient: Josephine Lowery a 87 y/o F admitted on 02/24/18 for Fall, Weakness, Unable to care for Self/UTI. Chief Complaint: [] Date of admission: 02/24/18 20:33 Discharge date: 02/27/18 Primary care physician: Amadeo Maki Admitting clinician: Ga Chopra Attending physician on admission: Ga Chopra Consults: 02/24/18 Consult to Physician [CONS] Stat Comment: Consulting Provider: Ga Chopra Reason For Exam: Physician to Consult Attending physician on discharge: Ga Chopra Discharging clinician: Ga Chopra Medical - DS: Meds - Discharge Medications Prescriptions: Cefuroxime [Ceftin] 250 mg PO Q12 #20 tablet Lisinopril [Zestril] 10 mg PO DAILY #30 tablet Active and Home Medications: Home Medications ALPRAZolam [Xanax] 1 mg PO BIDP PRN 04/18/16 [History Confirmed 02/24/18 Last Taken 04/18/16] Lisinopril [Zestril] 2.5 mg PO DAILY #30 tab 11/07/17 [Rx Confirmed 02/24/18 Last Taken Unknown] Ondansetron HCl [Zofran ODT] 4 mg SL Q4-6HP PRN #14 tab 02/03/18 [Rx Confirmed 02/26/18 Last Taken Unknown] Amoxicillin 500 mg PO Q12H #14 tab 02/22/18 [Rx Confirmed 02/26/18 Last Taken Unknown] DULoxetine [Cymbalta] 20 mg PO DAILY 02/26/18 [History Confirmed 02/26/18 Last Taken Unknown] DULoxetine [Cymbalta] 30 mg PO DAILY 02/26/18 [History Confirmed 02/26/18 Last Taken Unknown] Hydrocodon-Acetaminophn 10-325 1 tab PRN PRN 02/26/18 [History Confirmed Last Taken Unknown] Medical - DS: Hosp Hospital course: Mr. Lowery is a 87 year old F With history of recurrent UTIs and associated delirium. Patient was last seen by her friend Agus on Saturday when he returned it was apparent that she had gone to the emergency department on Saturday and had a hospital wristband and also was wearing hospital clothes. She was laying in those close in the bathtub dressed with the shampoo bottles on her and picking at her skin and play acting like she was eating something from there it initially she had pooped on her bed and on her couch. She was sent to the emergency department where she was found to have dehydration, renal injury and urinary tract infection. Urine had 25 white cells but culture is negative. She was treated with Rocephin and IV fluids and did well. Patient will go out on Ceftin 10 days. Renal ultrasound was done which showed right hydronephrosis. Additionally she does not fully empty her bladder as seen with post void residual of 180. I recommended that she follow up with neurology as this is a recurrent problem for her with UTI and delirium. Patient will discharge to [facility] Discharge diagnosis: urinary tract infection Secondary discharge diagnosis: Delirium Urine retention Hypertension Reason for admission: delirium Pertinent studies/significant findings: Ultrasound shows right hydronephrosis and this was also present [address] scan. - Time Spent with Patient Total time spent providing and/or coordinating discharge services: Greater than 30 minutes Medical - DS: Exam - Constitutional Vitals: Vital Signs Temp Pulse Pulse Resp BP BP Pulse Ox 02/27/18 12:14 98.1 F 71 16 183/91 93 02/27/18 06:49 98.0 F 71 18 169/83 96 02/27/18 04:00 97.6 F 76 20 143/74 92 02/27/18 00:00 97.8 F 81 20 158/77 92 02/26/18 20:00 98.2 F 70 20 126/75 93 02/26/18 16:00 97.1 F 80 18 154/81 95 Intake and Output 02/26/18 02/27/18 02/27/18 21:59 05:59 13:59 Intake Total 560 / 560 250 / 250 Output Total 350 / 350 550 / 550 927 / 927 Balance 210 / 210 -300 / -300 -927 / -927 Intake: Oral 560 / 560 250 / 250 Output: Urine Catheter Amount 350 / 350 550 / 550 750 / 750 Void Amount 175 / 175 # of times incontinent of urine 2 / 2 Other: Meal Dinner Breakfast Percent of Meal Consumed 100% 100% Feeding Ability Independent Assist with Tray Set Up Urine Appearance Clear Clear Urine Color Bright Yellow Straw Straw Uretheral (Jones) Bright Yellow Urine Odor Normal Normal Uretheral (Jones) Normal Stool Size Smear Small Stool Color Brown Brown Stool Consistency Loose Soft # Bowel Movements 1 # of times incontinent of 1 Bowels Weight 149 lb - Cardiovascular Cardiovascular exam: Present: normal rate and rhythm - GI/Abdominal GI/Abdominal exam: Present: normal bowel sounds, soft - Additional comments: Mild or minimal right flank tenderness left side not tender - Neurological Exam Neurological exam: Present: alert, normal gait (requires help and gait belt), oriented X3 - Psychiatric Psychiatric exam: Present: normal mood - Skin Skin exam: Present: dry, warm Medical - DS: Data Labs on day of discharge: Labs from last 24 hours 02/27/18 02/27/18 04:10 04:10 WBC 6.8 RBC 3.27 L Hgb 9.9 L Hct 30.1 L MCV 92.1 MCH 30.3 MCHC 32.9 RDW 13.6 Plt Count 182 MPV 9.0 Gran % 56.6 Lymph % (Auto) 26.4 Drew % (Auto) 7.8 Eos % (Auto) 7.5 H Baso % (Auto) 1.7 Gran # 3.9 Lymph # (Auto) 1.8 Drew # (Auto) 0.5 Eos # (Auto) 0.5 Baso # (Auto) 0.1 Sodium 137 Potassium 4.3 Chloride 102 Carbon Dioxide 24 Anion Gap 11.0 BUN 21 Creatinine 1.0 GFR Calculation 51 Glucose 142 H Calcium 8.5 L Total Creatine Kinase 145 Preliminary micro results at discharge 02/24/18 18:08 Blood Culture - Preliminary Blood 02/24/18 18:13 Blood Culture - Preliminary Blood Medical - DS: A/P - Patient/Caregiver Discharge Instructions Activity: ambulate only with your walker, as per physical therapy Diet: Low Sodium (2gm) Additional Instructions: PT and OT Eval and treat - Problem Maintenance (1) Complicated UTI (urinary tract infection) Status: Acute Comment: 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 Extended course of antibiotics to include Ceftin 250 mg twice a day for 10 days (2) Acute kidney injury (nontraumatic) Status: Resolved (3) Delirium due to another medical condition, acute, hypoactive Status: Acute Comment: Improved with probable mild underlying dementia (4) Dementia Status: Acute Qualifiers: Dementia type: unspecified type Dementia behavioral disturbance: with behavioral disturbance Qualified Code(s): F03.91 - Unspecified dementia with behavioral disturbance (5) Rhabdomyolysis Status: Resolved Qualifiers: Rhabdomyolysis type: non-traumatic Qualified Code(s): M62.82 - Rhabdomyolysis (6) Acute renal failure due to rhabdomyolysis Status: Acute - Follow up Plan Follow up with: Amadeo Maki DO [Primary Care Provider] - (Please call/schedule hospital follow up.) Disposition: Xfer SNF Prognosis: Good Rehab Potential: Good I certify that the patient requires SNF services: Yes (OT eval and treat, PT eval and treat. debilitation weak after delirium UTI) Overall status at discharge: patient is progressing back to baseline Medical - DS: Qual - VTE Deep Vein Thrombosis/Pulmonary Embolism Present on Admission: No
== END 2018-02-27 15:05 | DRG 690 ==
LOC: ED 14:59 → ICU 20:25 → MEDSUR 02-26 18:06
PROVIDERS: ADMIT Internal Medicine; ATTEND Internal Medicine

== ENCOUNTER 2018-03-13 16:57 | Inpatient (IN) ==
[~2018-03-13 16:57] MED LIST: DEXAMETHASONE 10 MG/ML VIAL IV ONE; KETAMINE 100 MG/ML ML IV ONE; LIDOCAINE HCL/PF 100 MG/5 ML SYRINGE IV ONE; MIDAZOLAM 2 MG/2 ML VIAL IV ONE; ONDANSETRON 4 MG/2 ML VIAL IV ONE; PROPOFOL 200 MG/20 ML VIAL IV ONE
[2018-03-13] MEDS ORDERED: 0.9 % SODIUM CHLORIDE 1,000 ML IV ONE (17:28)
--- NOTE | 2018-03-13 17:52 | Emergency Department Note ---
Fever HPI - General Chief Complaint: Fever Stated Complaint: Fever Time Seen by Provider: 03/13/18 17:06 Source: patient, other (halfway notes) Mode of arrival: wheelchair Limitations: altered mental status - History of Present Illness HPI Narrative: 87-year-old female patient with dementia comes over from [facility] secondary to fever of unclear source. She is not able to give me much in the way of meaningful history or review of systems. However she does state that she has some buttock pain at a sacral ulcer. Temperature was 99+ there and urinalysis was negative. Here it is 99.3. She is on oxygen there to keep her sats above 90% due to pulmonary fibrosis. She has a history of hyponatremia that is mild as well. She recently completed (Ceftin) antibiotics for UTI 4 days ago-she is been on Cipro for the last 2 days however. She has a history of multiple UTIs as well as chronic hydronephrosis bilaterally with possible neurogenic bladder-I reviewed previous retroperitoneal ultrasound. halfway notes increased delusional behaviors hallucination and rapid eye movement-they also states her oxygen sats dropped when she lays down. She has a history of recurrent falls On her POLST form she is DNR comfort care only but will allow antibiotics and blood products as well as IV fluids - Related Data Home Medications Medication Instructions Recorded Confirmed Acetaminophen [Non-Aspirin] 650 mg PO Q4HP PRN 03/13/18 03/13/18 Bisacodyl [Dulcolax] 10 mg VA ONCE PRN 03/13/18 03/13/18 Ciprofloxacin [Cipro] 250 mg PO BID 03/13/18 03/13/18 Na Phos,M-B/Na Phos,Di-Ba [Fleets 1 dose VA DAILYP PRN 03/13/18 03/13/18 Adult] Polyethylene Glycol 3350 [Miralax] 17 gm PO ONCE 03/13/18 03/13/18 Previous Rx's Medication Instructions Recorded Ondansetron HCl [Zofran ODT] 4 mg SL Q4-6HP PRN #14 tab 02/03/18 ALPRAZolam [Xanax] 1 mg PO BIDP PRN #40 tab 02/27/18 DULoxetine [Cymbalta] 30 mg PO DAILY #30 cap 02/27/18 Lisinopril [Zestril] 10 mg PO DAILY #30 tab 02/27/18 Allergies Allergy/AdvReac Type Severity Reaction Status Date / Time codeine AdvReac Mild Other Verified 03/13/18 16:57 Sulfa (Sulfonamide AdvReac Mild Congested Verified 03/13/18 16:57 Antibiotics) Review of Systems All systems ED: reviewed and negative except as stated. Fever PMH - Past Medical History PMFSH Narrative: Reviewed from her chart Past Surgical History (Last Updated 03/12/18 @ 11:01 by Brina Perales) History of tonsillectomy and adenoidectomy (Acute) H/O: hysterectomy (Acute) H/O knee surgery (Acute) History of hip surgery (Acute) History of cataract surgery (Chronic) Medical History (Last Updated 03/12/18 @ 10:53 by Brina Perales) Low blood pressure (Chronic) Idiopathic peripheral neuropathy (Chronic) Concussion (Chronic) Chronic pain (Chronic) Anemia (Chronic) Dyspnea (Chronic) Weakness (Chronic) Bronchitis (Chronic) Loss of appetite (Chronic) Cough (Chronic) Pneumonia (Chronic) Urinary tract infection (Acute) Vertebral compression fracture (Acute) Lung disease (Acute) Pericardial effusion (Acute) Cardiomegaly (Acute) Hydroureter (Acute) Hydronephrosis (Acute) Kidney stone on right side (Acute) Cataracts, bilateral (Acute) Hypothyroidism (Acute) Depression (Acute) COPD (chronic obstructive pulmonary disease) (Acute) Anxiety (Acute) Hyperlipemia (Acute) Pulmonary fibrosis (Chronic) Family History Mother Malignant neoplasm of ovary Father Family history of malignant neoplasm of stomach Medical history: Reports: COPD, hyperlipidemia, hypertension (Sometimes has had low blood pressure.), thyroid disease (Was low in the past but not currently on any medication or replacement.), TIA, other (pulmonary fibrosis. Bilateral cataracts (surgically treated). NO BLOOD THINNERS aspirin.). Denies: cancer, coronary artery disease, DM, myocardial infarction, osteoporosis Surgical history ED: Reports: other (Low back surgery) Psychiatric history: Reports: anxiety, depression [employer] history: Reports: non-contributory - Social History smoking status: Former smoker (Quit in 1986) Alcohol use: Reports: None Drug use: Reports: none. Denies: marijuana Physical Exam No acute distress resting comfortably. Normocephalic atraumatic. Conjunctive are clear sclerae nonicteric. No nasal discharge or congestion. Oropharynx pink and moist. Neck is supple without lymphadenopathy thyromegaly or carotid bruit. Heart is regular rate and rhythm no murmur appreciated. Lungs are clear to auscultation bilaterally without wheezes rales rhonchi or respiratory distress. Abdomen is soft nontender nondistended. No peritoneal signs or guarding. Wearing adult diaper. Exam of the sacral ulcer between her buttock near the sacral prominence shows dime sized shallow stage II ulcer. Based does not extend beyond the subcutaneous tissue. Small amount of serous fluid on bandage. Does not appear infected. No pedal edema. +2 radial pulse. Alert but unable to give me any recent history-significant short-term memory loss. Does not know where she is where she lives Limitations: no limitations Course Vital Signs Temperature 99.3 F H 03/13/18 16:57 Pulse Rate 85 03/13/18 16:57 Respiratory Rate 16 03/13/18 16:57 Blood Pressure 158/90 03/13/18 16:57 Pulse Oximetry (%) 93 03/13/18 16:57 Temperature 97.4 F 03/13/18 21:30 Pulse Rate 75 03/13/18 21:30 Respiratory Rate 16 03/13/18 21:30 Blood Pressure 169/87 03/13/18 21:30 Pulse Oximetry (%) 100 03/13/18 21:30 Fever - Lab Data Lab results reviewed: Yes I reviewed the patient's lab results. Result diagrams: 03/13/18 17:51 03/13/18 17:51 Lab Results 03/13/18 03/13/18 03/13/18 Range/Units 17:51 17:51 17:51 WBC 7.9 (4.5-11.0) K/mcL RBC 3.53 L (4.00-5.20) M/mcL Hgb 11.0 L (12.0-15.0) g/dL Hct 32.5 L (36.0-48.0) % MCV 92.1 (80.0-100.0) fL MCH 31.1 (26.0-34.0) pg MCHC 33.8 (31.0-36.0) g/dL RDW 13.8 (11.5-14.5) % Plt Count 202 (140-440) K/mcL MPV 8.3 (7.4-10.4) fL Gran % 62.7 (38.0-78.0) % Lymph % (Auto) 22.7 (15.5-49.0) % [place] % (Auto) 9.6 (1.0-12.0) % Eos % (Auto) 3.5 (0.0-7.0) % Baso % (Auto) 1.5 (0.0-2.0) % Gran # 5.0 (1.8-8.0) K/mcL Lymph # (Auto) 1.8 (1.5-4.8) K/mcL [place] # (Auto) 0.8 (0.1-0.9) K/mcL Eos # (Auto) 0.3 (0.0-0.7) K/mcL Baso # (Auto) 0.1 (0.0-0.3) K/mcL VBG Lactic Acid 0.8 (0.5-2.2) mmol/L Sodium 131 L (133-145) mmol/L Potassium 5.2 H (3.3-5.1) mmol/L Chloride 96 (96-108) mmol/L Carbon Dioxide 22 (22-30) mmol/L Anion Gap 13.0 (8-16) BUN 36 H (8-23) mg/dl Creatinine 1.5 H (0.6-1.1) mg/dl GFR Calculation 31 Glucose 89 (70-105) mg/dL Calcium 8.7 (8.6-10.4) mg/dl Total Bilirubin 0.5 (0.0-1.0) mg/dL AST 18 (0-37) U/l ALT 7 (0-40) U/l Alkaline Phosphatase 71 (39-117) U/L C-Reactive Protein 5.5 H (0.0-0.8) mg/dl Total Protein 7.0 (5.9-8.4) gm/dL Albumin 3.7 (3.2-5.2) gm/dL Globulin 3.3 (2.2-3.7) gm/dL Albumin/Globulin Ratio 1.1 (1.0-2.3) Lipase 168 H (7-60) U/L Urine Color Urine Appearance Urine pH (5.0-9.0) Ur Specific [place] (1.000-1.035) Urine Protein (NEG) mg/dL Urine Glucose (UA) (NEG) mg/dL Urine Ketones (NEG) mg/dL Urine Occult Blood (<0.03) mg/dL Urine Nitrate (NEG) Urine Bilirubin (NEG) mg/dL Urine Urobilinogen (NEG) mg/dL Ur Leukocyte Esterase (NEG) /uL Urine RBC (0-1) /hpf Urine WBC (0-4) /hpf Ur Squamous Epith Cells (0-4) /hpf Urine Bacteria (0) /hpf Ur Culture Indicated? 03/13/18 Range/Units 19:30 WBC (4.5-11.0) K/mcL RBC (4.00-5.20) M/mcL Hgb (12.0-15.0) g/dL Hct (36.0-48.0) % MCV (80.0-100.0) fL MCH (26.0-34.0) pg MCHC (31.0-36.0) g/dL RDW (11.5-14.5) % Plt Count (140-440) K/mcL MPV (7.4-10.4) fL Gran % (38.0-78.0) % Lymph % (Auto) (15.5-49.0) % [place] % (Auto) (1.0-12.0) % Eos % (Auto) (0.0-7.0) % Baso % (Auto) (0.0-2.0) % Gran # (1.8-8.0) K/mcL Lymph # (Auto) (1.5-4.8) K/mcL [place] # (Auto) (0.1-0.9) K/mcL Eos # (Auto) (0.0-0.7) K/mcL Baso # (Auto) (0.0-0.3) K/mcL VBG Lactic Acid (0.5-2.2) mmol/L Sodium (133-145) mmol/L Potassium (3.3-5.1) mmol/L Chloride (96-108) mmol/L Carbon Dioxide (22-30) mmol/L Anion Gap (8-16) BUN (8-23) mg/dl Creatinine (0.6-1.1) mg/dl GFR Calculation Glucose (70-105) mg/dL Calcium (8.6-10.4) mg/dl Total Bilirubin (0.0-1.0) mg/dL AST (0-37) U/l ALT (0-40) U/l Alkaline Phosphatase (39-117) U/L C-Reactive Protein (0.0-0.8) mg/dl Total Protein (5.9-8.4) gm/dL Albumin (3.2-5.2) gm/dL Globulin (2.2-3.7) gm/dL Albumin/Globulin Ratio (1.0-2.3) Lipase (7-60) U/L Urine Color Yellow Urine Appearance Clear Urine pH 6.0 (5.0-9.0) Ur Specific [place] 1.011 (1.000-1.035) Urine Protein Neg (NEG) mg/dL Urine Glucose (UA) Negative (NEG) mg/dL Urine Ketones Neg (NEG) mg/dL Urine Occult Blood Neg (<0.03) mg/dL Urine Nitrate Neg (NEG) Urine Bilirubin Neg (NEG) mg/dL Urine Urobilinogen Neg (NEG) mg/dL Ur Leukocyte Esterase 250 A (NEG) /uL Urine RBC 1 (0-1) /hpf Urine WBC 49 H (0-4) /hpf Ur Squamous Epith Cells 1 (0-4) /hpf Urine Bacteria 0 (0) /hpf Ur Culture Indicated? Yes Influenza swab was negative - Radiology Data Radiology results reviewed: Yes I reviewed the patient's radiology results. Chest x-ray shows chronic pulmonary fibrosis but no acute findings Disposition Pt seen by MANAGER SALT/PA only: No Clinical Impression: Dehydration, Hyperkalemia, Complicated UTI (urinary tract infection) Dementia Qualifiers: Dementia type: unspecified type Dementia behavioral disturbance: without behavioral disturbance Qualified Code(s): F03.90 - Unspecified dementia without behavioral disturbance Acute kidney failure Qualifiers: Acute renal failure type: unspecified Qualified Code(s): N17.9 - Acute kidney failure, unspecified Hydronephrosis Qualifiers: Hydronephrosis type: unspecified Qualified Code(s): N13.30 - Unspecified hydronephrosis Summary: Patient was initially worked up for fever with laboratory influenza swab chest x -ray. She has a known decubitus ulcer but on exam this does not appear infected. IV fluids were started On laboratory she had an acute increase in creatinine and evidence of a UTI. Her potassium was mildly elevated as well. We will start Zosyn as she has been on Cipro (times 2 days) and cefuroxime (full course see MAR from [facility]) without relief as an outpatient. Chest x-ray was unrevealing-she continued to require oxygen for her chronic pulmonary fibrosis. I discussed the case with Dr. Curry, hospitalist who felt that the patient had a significant history of multiple UTIs and this was secondary to her kidney issue of hydronephrosis. He felt that if the patient was a candidate for stenting or other urologic procedure it would be reasonable to bring her in the hospital I then discussed the case with her granddaughter, her only available relative, Leigh Ann-per the granddaughter they have had multiple discussions regarding end-of -life care and she notes that her grandmother would procedural intervention of her genitourinary tract if it would help reduce urinary tract infections and thereby reduce falls-i.e. improving her quality of life. She states that her grandmother does not want CPR or to be brought back in case of but that she does want full treatment, not comfort care. The patient's POLST form somewhat reflects that but the comfort care box is checked. I discussed this as well with the patient and her dementia not withstanding she would like to visit with a urologist talk about options for her kidneys/bladder I discussed the case again with Dr. Curry who agreed to accept the patient for further care and evaluation of complicated UTI Disposition: Xfer As Inpt ([facility]) Condition: Fair
--- NOTE | 2018-03-13 18:00 | XRay Report ---
HISTORY: Fever FINDINGS: There is moderate generalized interstitial lung disease throughout both lung villaseñor. The greatest involvement is in the left lower lobe. This has progressed since 03/26/17 but there has been little change since 06/27/17. No lobar consolidation is present and there is no evidence of a mass or pleural effusion. The pulmonary vessels are obscured by the pulmonary fibrosis. The heart is mildly enlarged and remains stable. The aorta is tortuous. There is an old stable compression fracture at T8. Associated with this is a scoliotic curvature. IMPRESSION: Moderate generalized pulmonary fibrosis. Superimposed active inflammation cannot be excluded. Stable cardiomegaly, without evidence of congestive heart failure. Interpreted and Authenticated by: Ismael Linda 03/13/18
[2018-03-13 18:32] LABS: Basophils # (Auto) 0.1 K/mcL (0.0-0.3); Basophils % (Auto) 1.5 % (0.0-2.0); Eosinophils # (Auto) 0.3 K/mcL (0.0-0.7); Eosinophils % (Auto) 3.5 % (0.0-7.0); Granulocytes % (Auto) 62.7 % (38.0-78.0); Lymphocytes # (Auto) 1.8 K/mcL (1.5-4.8); Lymphocytes % (Auto) 22.7 % (15.5-49.0); Mean Cell Volume 92.1 fL (80.0-100.0); Mean Corpuscular HGB Conc 33.8 g/dL (31.0-36.0); Mean Corpuscular Hemoglobin 31.1 pg (26.0-34.0); Monocytes # (Auto) 0.8 K/mcL (0.1-0.9); Monocytes % (Auto) 9.6 % (1.0-12.0); Platelet Count 202 K/mcL (140-440); RBC 3.53 M/mcL (4.00-5.20); Red Cell Distribution Width 13.8 % (11.5-14.5)
[2018-03-13 18:54] LABS: ALT/SGPT 7 U/l (0-40); Albumin 3.7 gm/dL (3.2-5.2); Albumin/Globulin Ratio 1.1 (1.0-2.3); Alkaline Phosphatase 71 U/L (39-117); Blood Urea Nitrogen 36 mg/dl (8-23); C-Reactive Protein 5.5 mg/dl (0.0-0.8); Lipase 168 U/L (7-60)
[2018-03-13] MEDS ORDERED: PIPERACILLIN SODIUM/TAZOBACTAM 2.25 GM in DEXTROSE 5% IN WATER 50 ML IV ONE (20:19)
[2018-03-13 20:39] LABS: Appearance,Urine CLEAR; Bacteria,Urine 0 /hpf (0); Bilirubin,Urine NEG (NEG); Color,Urine YELLOW; Glucose,Urine (UA) NEGATIVE (NEG); Leukocyte Esterase,Urine 250 /uL (NEG); Protein,Urine NEG (NEG); Specific Gravity,Urine 1.011 (1.000-1.035); Urine Blood NEG mg/dL (<0.03); Urine RBC 1 /hpf (0-1); Urine Squamous Epithelial Cell 1 /hpf (0-4); Urine WBC 49 /hpf (0-4); Urobilinogen,Urine NEG (NEG)
[2018-03-13] MEDS ORDERED: NALOXONE HCL 0.4 MG/ML VIAL IV PRN (21:33)
[2018-03-13] MEDS ORDERED: ONDANSETRON 4 MG/2 ML VIAL IV PRN (21:33)
[2018-03-13] MEDS ORDERED: ACETAMINOPHEN 325 MG TABLET PO PRN (21:33)
[2018-03-13] MEDS ORDERED: ALBUTEROL SULFATE 2.5 MG/3 ML NEBULIZER NEB PRN (21:33)
[2018-03-13] MEDS ORDERED: LACTATED RINGERS 1,000 ML IV SCH (21:33)
--- NOTE | 2018-03-13 22:14 | Internal Med History&Physical ---
Medical - H&P: HPI Patient information: Note initiated : 03/13/18 at 10:10 pm Service Date, if different from initiated Date: [] Patient: Josephine Lowery a 87 y/o F admitted on 03/13/18 for Fever. Chief Complaint: [] History of present illness: Ms. Lowery is a 87 year old F with history of advanced dementia, poor historian living in a prison presents to the emergency room for evaluation of fever. The patient was discharged recently from this facility for urinary tract infection. Based on chart review the patient had just finished the oral antibiotic. The patient's symptoms and fever had not resolved and therefore the patient was also started on p.o. ciprofloxacin a couple of days ago. Patient's symptoms did not respond to same and the patient was sent here for further evaluation. The patient is unable to provide any meaningful history. In the emergency room patient has a low-grade temperature of 99.3, saturating 90 % on 3 L of oxygen. Heart rate and blood pressure normal. Labs showed normal WBC count, patient had mildly elevated creatinine at 1.5, UA positive. Chest x-ray shows pulmonary fibrosis with slight worsening Based on the post forms the patient was comfort care status at the prison. Patient was initially presented to the hospital for further management. However given the comfort care status I was not entirely sure if it patient was warranted. The ER physician talked to family member of the patient who noted that the patient will undergo any necessary procedure and would just be DNR and not comfort care status. Patient being admitted for management of UTI, recurrent, and acute on chronic renal failure. CT of the abdomen pelvis and chest was ordered. This showed the patient has a right-sided hydronephrosis with a stone in the ureter. This is most likely the reason the patient has had failed treatments with oral antibiotics. I spoke with Dr. Estrada who will review the patient's chart tomorrow. Patient will be kept n.p.o. midnight for possible stent placement All systems: reviewed and no additional remarkable complaints except as stated ( Limited ROS due to cognition, complains about some soreness in the sacral region and chronic cough otherwise no complaints.) Medical - H&P: PMH Medical history: Medical History (Last Updated 03/12/18 @ 10:53 by Brina Perales) Low blood pressure (Chronic) Idiopathic peripheral neuropathy (Chronic) Concussion (Chronic) Chronic pain (Chronic) Anemia (Chronic) Dyspnea (Chronic) Weakness (Chronic) Bronchitis (Chronic) Loss of appetite (Chronic) Cough (Chronic) Pneumonia (Chronic) Urinary tract infection (Acute) Vertebral compression fracture (Acute) Lung disease (Acute) Pericardial effusion (Acute) Cardiomegaly (Acute) Hydroureter (Acute) Hydronephrosis (Acute) Kidney stone on right side (Acute) Cataracts, bilateral (Acute) Hypothyroidism (Acute) Depression (Acute) COPD (chronic obstructive pulmonary disease) (Acute) Anxiety (Acute) Hyperlipemia (Acute) Pulmonary fibrosis (Chronic) Surgical history: Past Surgical History (Last Updated 03/12/18 @ 11:01 by Brina Perales) History of tonsillectomy and adenoidectomy (Acute) H/O: hysterectomy (Acute) H/O knee surgery (Acute) History of hip surgery (Acute) History of cataract surgery (Chronic) Pertinent family history: Family History Mother Malignant neoplasm of ovary Father Family history of malignant neoplasm of stomach Medical - H&P: Meds Home Medications Medication Instructions Recorded Confirmed Type Ondansetron HCl [Zofran ODT] 4 mg SL Q4-6HP PRN #14 tab 02/03/18 03/13/18 Rx ALPRAZolam [Xanax] 1 mg PO BIDP PRN #40 tab 02/27/18 03/13/18 Rx DULoxetine [Cymbalta] 30 mg PO DAILY #30 cap 02/27/18 03/13/18 Rx Lisinopril [Zestril] 10 mg PO DAILY #30 tab 02/27/18 03/13/18 Rx Acetaminophen [Non-Aspirin] 650 mg PO Q4HP PRN 03/13/18 03/13/18 History Bisacodyl [Dulcolax] 10 mg SD ONCE PRN 03/13/18 03/13/18 History Ciprofloxacin [Cipro] 250 mg PO BID 03/13/18 03/13/18 History Na Phos,M-B/Na Phos,Di-Ba [Fleets 1 dose SD DAILYP PRN 03/13/18 03/13/18 History Adult] Polyethylene Glycol 3350 [Miralax] 17 gm PO ONCE 03/13/18 03/13/18 History Allergies Allergy/AdvReac Type Severity Reaction Status Date / Time codeine AdvReac Mild Other Verified 03/13/18 16:57 Sulfa (Sulfonamide AdvReac Mild Congested Verified 03/13/18 16:57 Antibiotics) Medical - H&P: Exam - Constitutional Vitals: Temp Pulse Resp BP Pulse Ox 97.4 F 75 16 169/87 100 03/13/18 21:30 03/13/18 21:30 03/13/18 21:30 03/13/18 21:30 03/13/18 21:30 Exam: GENERAL: The patient is a well-developed, well-nourished in no apparent distress. Is alert and oriented x1. VITAL SIGNS: Reviewed and as noted elsewhere. HEENT: Head is normocephalic and atraumatic. Extraocular muscles are intact. Pupils are equal, round, and reactive to light. Nares appeared normal. Mouth appears any without lesions. Mucous membranes are moist. NECK: Normal to inspection, Supple, No lymphadenopathy or thyromegaly. LUNGS: Air entry equal on both sides, no wheezing, bilateral basilar crackles present . No accessory muscles of respiration HEART: Regular rate and rhythm normal, S1 and S2 heard, no Gallop, S3 or Rub Noted, No Gross murmur heard. ABDOMEN: Soft, nontender, and nondistended. Positive bowel sounds. No hepatosplenomegaly was noted. Sacral ulcer covered with mepilex. EXTREMITIES: No cyanosis, clubbing, rash, lesions or edema. NEUROLOGIC: Cranial nerves II through XII are grossly intact. Motor and Sensory System Grossly Intact PSYCHIATRIC: Normal affect, Normal Mood. Appropriate Behavior. SKIN: No ulceration or wounds noted, No jaundice, No rash noted. Medical - H&P: Reslt - Labs CBC & Chem 7: 03/13/18 17:51 03/13/18 17:51 Labs: Short CBC 03/13/18 Range/Units 17:51 WBC 7.9 (4.5-11.0) K/mcL Hgb 11.0 L (12.0-15.0) g/dL Hct 32.5 L (36.0-48.0) % Plt Count 202 (140-440) K/mcL BMP 03/13/18 17:51 Sodium 131 L Potassium 5.2 H Chloride 96 Carbon Dioxide 22 BUN 36 H Creatinine 1.5 H Glucose 89 Calcium 8.7 Liver Function 03/13/18 Range/Units 17:51 Total Bilirubin 0.5 (0.0-1.0) mg/dL AST 18 (0-37) U/l ALT 7 (0-40) U/l Alkaline Phosphatase 71 (39-117) U/L Albumin 3.7 (3.2-5.2) gm/dL Urine 03/13/18 Range/Units 19:30 Urine Color Yellow Urine Appearance Clear Urine pH 6.0 (5.0-9.0) Ur Specific [place] 1.011 (1.000-1.035) Urine Protein Neg (NEG) mg/dL Urine Glucose (UA) Negative (NEG) mg/dL Medical - H&P: A/P - Narrative A/P Narrative: A/P Acute on Chronic Renal failure Urinary Tract infection Right Moderate hydronephrosis with hydroureter secondary to stone Advanced Dementia Chronic respiratory failure Pulmonary fibrosis COPD Plan Admit to med surg status IV fluids trend creatinine IV zosyn or now, s/p recent treatment with oral cephalosporin and ciprofloxacin Urology consulted for stone and hydronephrosis, this is a chr finding, but in the past CT stone was not reported I am guessing that it was missed due to artifact from bilateral hip replacements. DUonebs Oxygen supplementation to keep osat > 90 DVT hep sq Diet regular, DNR code status. Medical - H&P: Qual - VTE Deep Vein Thrombosis/Pulmonary Embolism Present on Admission: No Social History - Tobacco smoking status: Former smoker - Alcohol alcohol intake frequency: holiday/special occasion only
[2018-03-13] MEDS ORDERED: ALPRAZolam 0.5 MG TABLET PO PRN (22:20)
[2018-03-13] MEDS: 0.9 % SODIUM CHLORIDE 10 ML SYRINGE IV SCH (22:40)
[2018-03-13] MEDS: HEPARIN 5,000 UNIT/ML VIAL SQ SCH (22:40)
[2018-03-14] MEDS: IPRATROPIUM/ALBUTEROL 3 ML AMPUL.NEB NEB SCH ×4 (01:03→19:05)
[2018-03-14] MEDS: PIPERACILLIN SODIUM/TAZOBACTAM 3.375 GM in DEXTROSE 5% IN WATER 50 ML IV SCH ×3 (05:07→21:18)
[2018-03-14] MEDS: 0.9 % SODIUM CHLORIDE 10 ML SYRINGE IV SCH ×3 (05:07→21:19)
[2018-03-14 06:22] LABS: Basophils # (Auto) 0.1 K/mcL (0.0-0.3); Basophils % (Auto) 1.3 % (0.0-2.0); Eosinophils # (Auto) 0.2 K/mcL (0.0-0.7); Eosinophils % (Auto) 3.5 % (0.0-7.0); Granulocytes % (Auto) 63.7 % (38.0-78.0); Lymphocytes # (Auto) 1.1 K/mcL (1.5-4.8); Lymphocytes % (Auto) 20.7 % (15.5-49.0); Mean Cell Volume 92.3 fL (80.0-100.0); Mean Corpuscular HGB Conc 33.3 g/dL (31.0-36.0); Mean Corpuscular Hemoglobin 30.7 pg (26.0-34.0); Monocytes # (Auto) 0.6 K/mcL (0.1-0.9); Monocytes % (Auto) 10.8 % (1.0-12.0); Platelet Count 190 K/mcL (140-440); RBC 3.39 M/mcL (4.00-5.20)
[2018-03-14 06:55] LABS: ALT/SGPT 8 U/l (0-40); Albumin 3.3 gm/dL (3.2-5.2); Albumin/Globulin Ratio 1.1 (1.0-2.3); Alkaline Phosphatase 70 U/L (39-117); Bilirubin,Direct < 0.2 mg/dL (0.0-0.3); Blood Urea Nitrogen 27 mg/dl (8-23); Gamma Glutamyl Transpeptidase 12 U/L (5-36); Uric Acid 4.2 mg/dL (2.5-8.0)
--- NOTE | 2018-03-14 07:27 | Consultation ---
DATE OF CONSULTATION: 03/14/2018 REQUESTING PHYSICIAN: Antoinette Ramirez MD HISTORY OF PRESENT ILLNESS: The patient is an 87-year-old lady who has a history of recurrent urinary infections. Recently she was admitted to the hospital for an infection. An ultrasound did show right-sided hydronephrosis. She came into the hospital last night because of fever. A CT scan was obtained which showed a large stone obstructing the right ureter. Her last urinary infection was clear, but was treated with antibiotics. She denies any burning with urination. She denies any history of stones. She does have dementia and is a poor historian. I have been asked to evaluate her. PAST MEDICAL HISTORY: Significant for hypotension, chronic pain, anemia, dementia, pneumonia in the past, depression, COPD, pulmonary fibrosis. PAST SURGICAL HISTORY: A bilateral hip replacement and a hysterectomy; also cataract surgery. FAMILY HISTORY: Malignancy of the stomach and ovary. CURRENT MEDICATIONS: 1. Xanax. 2. Cymbalta. 3. Zestril. 4. Cipro. ALLERGIES: CODEINE AND SULFA. REVIEW OF SYSTEMS: CARDIAC: Denies any current chest pain. RESPIRATORY: No wheezing, coughing, or asthma. Otherwise, complete review of systems is negative. Please see dictation by Dr. Curry on 03/13/2018. PHYSICAL EXAMINATION: GENERAL: This is a very pleasant lady in no apparent distress, alert and oriented x1. VITAL SIGNS: As noted are normal. HEENT: Atraumatic, normocephalic. Extraocular movements are intact. Pupils equal, reactive to light and accommodation. Mucous membranes are normal. NECK: Supple. Trachea is in the midline. LUNGS: Clear to auscultation. HEART: Regular rate and rhythm. ABDOMEN: Soft, nontender, no CVA tenderness. GENITOURINARY: Normal female anatomy, positive atrophic vaginitis. EXTREMITIES: Without clubbing, cyanosis or edema. NEUROLOGIC: Cranial nerves II-XII greatly intact. IMPRESSION: The patient with a distal right ureteral stone. I have talked to her about this and our options at this point would be to place a stent or to treat her with ureteroscopy and remove the stone. As she is afebrile and is on antibiotics, I feel that taking out the stone would be the best treatment. I have gone over the complications including bleeding, infection, pain and not being able to get the stone, and the need for a stent, and she understands. Surgery will be scheduled today. A full PARQ discussion was held. PLAN: Right ureteroscopy with laser lithotripsy and removal of stone. JYOTI:jose Job ID: [id number] Doc ID: [id number] Robin Estrada MD
--- NOTE | 2018-03-14 07:59 | Cat Scan Report ---
History: Fever and hydronephrosis. TECHNIQUE: The patient was imaged without oral or intravenous contrast from the thoracic inlet to the symphysis pubis. Sagittal and coronal reformats are created. The radiation exposure was limited using dose reduction technology. FINDINGS:. CHEST: There is moderate pulmonary fibrosis in both lungs with relative sparing of the right upper lobe. Associated with this is honeycombing in a subpleural distribution and traction bronchiectasis. No consolidating infiltrate is present. There is no pleural effusion. The heart is mildly enlarged. Densely calcified plaques are present in the coronary arteries. Small reactive lymph nodes are noted in the mediastinum. They are 1 cm or smaller. The esophagus is distended with gas. There is no apparent soft tissue mass or abnormal thickening of the wall. ABDOMEN: Evaluation of abdominal organs without contrast is limited. The liver and spleen are normal in size and homogeneous. There is no apparent mass or inflammation the pancreas. The neck of the pancreas there is a 2 x 4 mm calcification. In the tail a 1 x 3 mm calcification is seen. This may be from chronic pancreatitis. There are no gallstones or dilatation of bile ducts. The adrenals are normal. There is moderate hydronephrosis in the right kidney. There is no hydronephrosis on the left side. Within a calyx in the middle third of the left kidney there is a 2 x 3 mm nonobstructing stone. The distal right ureter is very dilated and measures up to 2.6 x 3.2 cm. Patient has bilateral metal hip prosthesis causing severe beam hardening artifact in lower pelvis. Deep in the right lower pelvis in the general vicinity of the right ureterovesical junction there is a dense calcification which measures 1.3 cm. Although this could be a giant phlebolith, I suspect it is a distal ureteral stone causing the hydronephrosis. The bladder is largely obscured by the beam hardening artifact. Numerous diverticula are present in the sigmoid colon and descending colon but without evidence of acute diverticulitis. No ascites is present. The aorta is normal caliber but has densely calcified plaques. Severe degenerative changes are present throughout the spine. There is severe spinal canal stenosis at L4-5. There are or compression fractures at multiple levels. Moderate compression fractures present at T8 and another at L3. A milder compression fractures seen at T12. IMPRESSION: Moderate hydronephrosis in the right kidney. This is probably due to a large stone in the distal right ureter near the ureterovesical junction Moderate pulmonary fibrosis Mild cardiomegaly with atherosclerotic coronary artery disease Dr. Curry was called with the results Interpreted and Authenticated by: Ismael Linda 03/14/18
[2018-03-14] MEDS: HEPARIN 5,000 UNIT/ML VIAL SQ SCH ×2 (08:23→20:22)
[2018-03-14] MEDS ORDERED: DULoxetine 30 MG CAPSULE PO SCH (09:00)
--- NOTE | 2018-03-14 11:30 | Internal Med Progress Note ---
Medical - PN: Subj Patient information: Note initiated : 03/14/18 at 11:28 am Service Date, if different from initiated Date: [] Patient: Josephine Lowery a 87 y/o F admitted on 03/13/18 for Fever. Chief Complaint: [] Interval history: Ms. Lowery is a 87 year old F with history of advanced dementia, poor historian living in a [facility] presents to the emergency room for evaluation of fever. The patient was discharged recently from this facility for urinary tract infection. Based on chart review the patient had just finished the oral antibiotic. The patient's symptoms and fever had not resolved and therefore the patient was also started on p.o. ciprofloxacin a couple of days ago. Patient's symptoms did not respond to same and the patient was sent here for further evaluation. The patient is unable to provide any meaningful history. In the emergency room patient has a low-grade temperature of 99.3, saturating 90 % on 3 L of oxygen. Heart rate and blood pressure normal. Labs showed normal WBC count, patient had mildly elevated creatinine at 1.5, UA positive. Chest x-ray shows pulmonary fibrosis with slight worsening Based on the post forms the patient [facility] the [facility]. Patient was initially presented to the hospital for further management. However given the comfort care status I was not entirely sure if it patient was warranted. The ER physician talked to family member of the patient who noted that the patient will undergo any necessary procedure and would just be DNR and not comfort care status. Patient being admitted for management of UTI, recurrent, and acute on chronic renal failure. CT of the abdomen pelvis and chest was ordered. This showed the patient has a right-sided hydronephrosis with a stone in the ureter. This is most likely the reason the patient has had failed treatments with oral antibiotics. I spoke with Dr. Estrada who will review the patient's chart tomorrow. Patient will be kept n.p.o. midnight for possible stent placement 03/14 Patient seen and examined, no acute overnight events sitting comfortably in the chair. She has no complaints. Seen by Dr. Estrada plan for procedure today. Creatinine improved to 1.2 Pertinent ROS: Denies headache, dizziness Denies chest pain, palpitations Denies cough or shortness of breath Denies abdominal pain, nausea or vomiting. Not sure how reliable the ROS is but patient had no complaints - Constitutional Vitals: Vital Signs Temp Pulse Resp BP Pulse Ox 98.2 F 77 16 151/82 96 03/14/18 07:05 03/14/18 07:35 03/14/18 07:35 03/14/18 07:05 03/14/18 07:35 Period Temp Pulse Resp BP Sys/Rodriguez Pulse Ox Last 24 Hr 97.4 F-99.3 F 74-85 16-18 128-175/81-105 93-100 Intake and Output 03/13/18 03/14/18 03/14/18 21:59 05:59 13:59 Intake Total 1023 / 1023 150 / 150 50 / 50 Output Total 976 / 976 300 / 300 Balance 1023 / 1023 -826 / -826 -250 / -250 Weight 149 lb Intake & Output: Intake & Output 03/13/18 03/14/18 03/14/18 21:59 05:59 13:59 Intake Total 1023 / 1023 150 / 150 50 / 50 Output Total 976 / 976 300 / 300 Balance 1023 / 1023 -826 / -826 -250 / -250 Weight 149 lb Intake: IV 1023 / 1023 50 / 50 Sodium Chloride 0.9% 1,000 ml @ 1000 / 1000 Wide Open IV .Q0M ONE Rx#: [id number] Zosyn 2.25 gm In Dextrose 5% in 23 / 23 Water 50 ml @ 100 mls/hr IV ONCE ONE Rx#:[id number] Zosyn 3.375 gm In Dextrose 5% 50 / 50 in Water 50 ml @ 100 mls/hr IV Q8H [facility] Rx#:[id number] Oral 150 / 150 Output: Void Amount 975 / 975 300 / 300 # of times incontinent of urine Other: Urine Appearance Clear Clear Urine Color Pale Bright Yellow Urine Odor Strong Exam: Constitutional; Afebrile, cooperative, alert, not in distress. Eyes- No icterus, , No periorbital swelling Ears- Ext ear normal, hearing normal to conversation. Neck- Midline trachea, supple Respiratory system: Air Entry equal on both sides,princess crackles CVS- Rate rhythm regular, S1,S2 heard, no gallop, no rub. Abdomen- Soft nontender abdomen, no organomegaly, no tenderness, no guarding or rigidity, SCARFER OPERATOR- AOOx1, moving all extremities, no gross focal deficit noted. Medical - PN: Obj Da - Labs CBC & Chem 7: 03/14/18 04:17 03/14/18 04:17 Labs: Abnormal Lab Results 03/14/18 03/14/18 03/13/18 04:17 04:17 19:30 RBC 3.39 L Hgb 10.4 L Hct 31.3 L Lymph # (Auto) 1.1 L Sodium Potassium BUN 27 H Creatinine 1.2 H Lactate Dehydrogenase 273 H C-Reactive Protein Lipase Ur Leukocyte Esterase 250 A Urine WBC 49 H 03/13/18 03/13/18 17:51 17:51 RBC 3.53 L Hgb 11.0 L Hct 32.5 L Lymph # (Auto) Sodium 131 L Potassium 5.2 H BUN 36 H Creatinine 1.5 H Lactate Dehydrogenase C-Reactive Protein 5.5 H Lipase 168 H Ur Leukocyte Esterase Urine WBC Meds: Medications Acetaminophen (Tylenol) 650 mg PO Q6HP PRN PRN Reason: PAIN/FEVER > 101 Last Admin: 03/14/18 05:07 Dose: 650 mg Albuterol Sulfate (Ventolin) 2.5 mg NEB Q2HP PRN PRN Reason: Shortness Of Breath Albuterol/Ipratropium (Duoneb) 3 ml NEB Q6HRT [facility] Last Admin: 03/14/18 07:34 Dose: 3 ml Alprazolam (Xanax) 1 mg PO BIDP PRN PRN Reason: Anxiety Duloxetine HCl (Cymbalta) 30 mg PO DAILY [facility] Last Admin: 03/14/18 08:23 Dose: Not Given Heparin Sodium (Porcine) (Heparin) 5,000 unit SQ Q12 [facility] Last Admin: 03/14/18 08:23 Dose: Not Given Piperacillin Sod/Tazobactam (Sod 3.375 gm/ Dextrose) 50 mls @ 100 mls/hr IV Q8H [facility] Last Infusion: 03/14/18 06:00 Dose: Infused Naloxone HCl (Narcan) 0.1 mg IV Q2MIN PRN PRN Reason: Opiate Reversal Ondansetron HCl (Zofran) 4 mg IV Q6HP PRN PRN Reason: Nausea And Vomiting Sodium Chloride (Saline Flush) 10 ml IV Q8 [facility] Last Admin: 03/14/18 05:07 Dose: Not Given Medical - PN: A/P - Time Spent With Patient Total time spent is greater than 50% in coordination of care (as documented) at patient's floor/unit and/or counseling patient: - Narrative A/P Narrative: A/P Acute on Chronic Renal failure Urinary Tract infection Right Moderate hydronephrosis with hydroureter secondary to stone Advanced Dementia Chronic respiratory failure Pulmonary fibrosis COPD Plan continue with IV fluids trend creatinine, creat improving IV zosyn or now, s/p recent treatment with oral cephalosporin and ciprofloxacin Urology to plan stone extraction today. DUonebs to continue Oxygen supplementation to keep osat > 90 DVT hep sq Diet regular, DNR code status. Medical - PN: Qual - VTE Deep Vein Thrombosis/Pulmonary Embolism Present on Admission: No
[2018-03-14] MEDS ORDERED: IPRATROPIUM/ALBUTEROL 3 ML AMPUL.NEB NEB PRN (12:42)
[2018-03-14] MEDS ORDERED: METOPROLOL TARTRATE 5 MG/5 ML VIAL IV PRN (12:42)
[2018-03-14] MEDS ORDERED: fentaNYL 100 MCG/2 ML VIAL IV PRN (12:42)
[2018-03-14] MEDS ORDERED: ONDANSETRON 4 MG/2 ML VIAL IV PRN ×2 (12:42→14:16)
[2018-03-14] MEDS ORDERED: ATROPINE SULFATE 0.4 MG/ML VIAL IV PRN (12:42)
[2018-03-14] MEDS ORDERED: PROMETHAZINE 25 MG/ML VIAL IV PRN (12:42)
[2018-03-14] MEDS ORDERED: METHOCARBAMOL 1,000 MG/10 ML VIAL IV PRN (12:42)
[2018-03-14] MEDS ORDERED: MEPERIDINE 25 MG/ML SYRINGE IV PRN (12:42)
[2018-03-14] MEDS ORDERED: diphenhydrAMINE 50 MG/ML VIAL IV PRN (12:42)
[2018-03-14] MEDS ORDERED: NALOXONE HCL 0.4 MG/ML VIAL IV PRN ×2 (12:42→14:16)
[2018-03-14] MEDS ORDERED: ePHEDrine 50 MG/ML AMPUL IV PRN (12:42)
[2018-03-14] MEDS ORDERED: FLUMAZENIL 0.1 MG/ML ML IV PRN (12:42)
[2018-03-14] MEDS ORDERED: LACTATED RINGERS 1,000 ML IV SCH (12:45)
--- NOTE | 2018-03-14 13:10 | Brief Operative Note ---
Date of procedure: 03/14/18 Pre-op diagnosis: right hydronephrosis Post-op diagnosis: same Procedure: cysto, stent Grafts/Implants: Yes (ureteral stent) Anesthesia: GLMA Findings: see note Complications: none Surgeon: Robin Etsrada Specimens Removed/Pathology: none sent Condition: stable Disposition: PACU
[2018-03-14] MEDS ORDERED: IOPAMIDOL 100 ML BOTTLE IJ ONE (13:19)
--- NOTE | 2018-03-14 13:27 | Operative Note ---
DATE OF OPERATION: 03/13/2018 PREOPERATIVE DIAGNOSIS: Right hydronephrosis. POSTOPERATIVE DIAGNOSIS: Right hydronephrosis. PROCEDURE: Cystoscopy, ureteroscopy and right stent placement. SURGEON: Robin Estrada MD INDICATIONS: The patient is an 81-year-old lady who has had recurrent pyelonephritis. She has had an ultrasound which did show right-sided hydronephrosis and she is septic. She presents now for stent placement. DESCRIPTION OF PROCEDURE: The patient was identified. Consent was signed. She was given general anesthesia, placed in lithotomy position, prepped and draped in standard fashion. Cystoscopy, ureteroscopy showed normal-appearing urethra, although there was a large cystocele. Bladder was normal. There were no tumors or masses. We were able to see the left orifice without difficulty, but the right orifice was hard to identify. After about 40 minutes of searching for the ureter, we were finally able to find it and a wire was placed up into the kidney using the ureteroscope to pass the wire. I then did a retrograde pyelogram through the scope and this showed its was in proper position. There was a high-grade obstruction at the ureterovesical junction. At this point, a decision was made to leave a stent. It should be noted that no stones were seen. I placed a 6 x 24 stent using this Seldinger technique and a good curl was in the kidney and the bladder. No string was left attached. Her bladder was then drained. She was awoken and taken to recovery room in stable condition, tolerated the procedure well. [id number] Job ID: [id number] Doc ID: [id number] Robin Estrada MD
[2018-03-14] MEDS ORDERED: ALBUTEROL SULFATE 2.5 MG/3 ML NEBULIZER NEB PRN (14:16)
[2018-03-14] MEDS: LISINOPRIL 10 MG TABLET PO SCH (15:07)
[2018-03-14] MEDS ORDERED: cloNIDine HCL 0.1 MG TABLET PO PRN (15:37)
[2018-03-14] MEDS: ALPRAZolam 0.5 MG TABLET PO PRN (20:53)
[2018-03-15] MEDS: IPRATROPIUM/ALBUTEROL 3 ML AMPUL.NEB NEB SCH ×4 (01:16→19:00)
[2018-03-15] MEDS: ALPRAZolam 0.5 MG TABLET PO PRN ×3 (01:42→23:59)
[2018-03-15] MEDS: 0.9 % SODIUM CHLORIDE 10 ML SYRINGE IV SCH ×3 (07:08→20:37)
[2018-03-15] MEDS: PIPERACILLIN SODIUM/TAZOBACTAM 3.375 GM in DEXTROSE 5% IN WATER 50 ML IV SCH (07:08)
[2018-03-15] MEDS: HEPARIN 5,000 UNIT/ML VIAL SQ SCH ×2 (08:13→20:37)
[2018-03-15] MEDS: DULoxetine 30 MG CAPSULE PO SCH (08:13)
[2018-03-15] MEDS: LISINOPRIL 10 MG TABLET PO SCH (08:13)
[2018-03-15] MEDS: ACETAMINOPHEN 325 MG TABLET PO PRN ×3 (08:14→22:23)
[2018-03-15 09:00] LABS: Basophils # (Auto) 0.1 K/mcL (0.0-0.3); Basophils % (Auto) 0.9 % (0.0-2.0); Eosinophils # (Auto) 0 K/mcL (0.0-0.7); Eosinophils % (Auto) 0.4 % (0.0-7.0); Granulocytes % (Auto) 69.3 % (38.0-78.0); Lymphocytes # (Auto) 1.6 K/mcL (1.5-4.8); Lymphocytes % (Auto) 22.1 % (15.5-49.0); Mean Cell Volume 92.2 fL (80.0-100.0); Mean Corpuscular HGB Conc 33.4 g/dL (31.0-36.0); Mean Corpuscular Hemoglobin 30.8 pg (26.0-34.0); Monocytes # (Auto) 0.5 K/mcL (0.1-0.9); Monocytes % (Auto) 7.3 % (1.0-12.0); Platelet Count 239 K/mcL (140-440); RBC 3.76 M/mcL (4.00-5.20)
[2018-03-15 09:10] LABS: ALT/SGPT 8 U/l (0-40); Albumin 4.3 gm/dL (3.2-5.2); Albumin/Globulin Ratio 1.5 (1.0-2.3); Alkaline Phosphatase 73 U/L (39-117); Bilirubin,Direct < 0.2 mg/dL (0.0-0.3); Blood Urea Nitrogen 23 mg/dl (8-23); Gamma Glutamyl Transpeptidase 14 U/L (5-36); Uric Acid 3.6 mg/dL (2.5-8.0)
[2018-03-15] MEDS ORDERED: VANCOMYCIN PER PHARMACY IV SCH (10:09)
--- NOTE | 2018-03-15 10:25 | Internal Med Progress Note ---
Medical - PN: Subj Patient information: Note initiated : 03/15/18 at 10:23 am Service Date, if different from initiated Date: [] Patient: Josephine Lowery a 87 y/o F admitted on 03/13/18 for Fever/UTI, Distal Right Ureteral Stone. Chief Complaint: [] Interval history: Ms. Lowery is a 87 year old F with history of advanced dementia, poor [facility] presents to the emergency room for evaluation of fever. The patient was discharged recently from this facility for urinary tract infection. Based on chart review the patient had just finished the oral antibiotic. The patient's symptoms and fever had not resolved and therefore the patient was also started on p.o. ciprofloxacin a couple of days ago. Patient's symptoms did not respond to same and the patient was sent here for further evaluation. The patient is unable to provide any meaningful history. In the emergency room patient has a low-grade temperature of 99.3, saturating 90 % on 3 L of oxygen. Heart rate and blood pressure normal. Labs showed normal WBC count, patient had mildly elevated creatinine at 1.5, UA positive. Chest x-ray shows pulmonary fibrosis with slight worsening Based on the post forms the [facility] Patient was initially presented to the hospital for further management. However given the comfort care status I was not entirely sure if it patient was warranted. The ER physician talked to family member of the patient who noted that the patient will undergo any necessary procedure and would just be DNR and not comfort care status. Patient being admitted for management of UTI, recurrent, and acute on chronic renal failure. CT of the abdomen pelvis and chest was ordered. This showed the patient has a right-sided hydronephrosis with a stone in the ureter. This is most likely the reason the patient has had failed treatments with oral antibiotics. I spoke with Dr. Estrada who will review the patient's chart tomorrow. Patient will be kept n.p.o. midnight for possible stent placement 03/14 Patient seen and examined, no acute overnight events sitting comfortably in the chair. She has no complaints. Seen by Dr. Estrada plan for procedure today. Creatinine improved to 1.2 03/15 Pt seen examined, no acute ovenright issues doing well, patient urine cx is growing enterococcus, IV abx switched to vanco No stone noted on uretroscopy, stent placed stil on 2 L oxygen, but overall doing well Pertinent ROS: Denies headache, dizziness Denies chest pain, palpitations Denies cough or shortness of breath Denies abdominal pain, nausea or vomiting. - Constitutional Vitals: Vital Signs Temp Pulse Resp BP Pulse Ox 98.2 F 91 H 20 131/83 92 03/15/18 08:00 03/15/18 07:36 03/15/18 08:00 03/15/18 08:00 03/15/18 08:00 Period Temp Pulse Resp BP Sys/Rodriguez Pulse Ox Last 24 Hr 97.4 F-99.6 F 61-95 14-20 131-202/77-101 90-100 Intake and Output 03/14/18 03/15/18 03/15/18 21:59 05:59 13:59 Intake Total 650 / 650 800 / 800 180 / 180 Output Total 627 / 627 576 / 576 250 / 250 Balance 224 / 224 -70 / -70 Weight 147 lb Intake & Output: Intake & Output 03/14/18 03/15/18 03/15/18 21:59 05:59 13:59 Intake Total 650 / 650 800 / 800 180 / 180 Output Total 627 / 627 576 / 576 250 / 250 Balance 224 / 224 -70 / -70 Weight 147 lb Intake: IV 50 / 50 50 / 50 Zosyn 3.375 gm In Dextrose 5% 50 / 50 50 / 50 in Water 50 ml @ 100 mls/hr IV Q8H [facility] Rx#:[id number] Oral 800 / 800 130 / 130 Tube Feeding 600 / 600 Output: Void Amount 625 / 625 575 / 575 250 / 250 # of times incontinent of urine 2 / 2 Other: Meal Breakfast Percent of Meal Consumed 100% Feeding Ability Independent Urine Appearance Cloudy Clear Clear Urine Color Bright Red [place] Blood Tinged Urine Odor Normal Normal Strong Stool Size Moderate Stool Color Brown Stool Consistency Dry and Hard # Voids 1 # Bowel Movements 1 Exam: Constitutional; Afebrile, cooperative, alert, not in distress. Eyes- No icterus, , No periorbital swelling Ears- Ext ear normal, hearing normal to conversation. Neck- Midline trachea, supple Respiratory system: Air Entry equal on both sides, princess insipratory crackles. CVS- Rate rhythm regular, S1,S2 heard, no gallop, no rub. Abdomen- Soft nontender abdomen, no organomegaly, no tenderness, no guarding or rigidity, BROWNFIELD PROGRAM COORDINATOR- AOOx1, moving all extremities, no gross focal deficit noted. Medical - PN: Obj Da - Labs CBC & Chem 7: 03/15/18 07:33 03/15/18 07:33 Labs: Abnormal Lab Results 03/15/18 03/15/18 03/14/18 07:33 07:33 04:17 RBC 3.76 L Hgb 11.6 L Hct 34.6 L Lymph # (Auto) Sodium Potassium BUN 27 H Creatinine 1.3 H 1.2 H Lactate Dehydrogenase 275 H 273 H C-Reactive Protein Lipase Ur Leukocyte Esterase Urine WBC 03/14/18 03/13/18 03/13/18 04:17 19:30 17:51 RBC 3.39 L Hgb 10.4 L Hct 31.3 L Lymph # (Auto) 1.1 L Sodium 131 L Potassium 5.2 H BUN 36 H Creatinine 1.5 H Lactate Dehydrogenase C-Reactive Protein 5.5 H Lipase 168 H Ur Leukocyte Esterase 250 A Urine WBC 49 H 03/13/18 17:51 RBC 3.53 L Hgb 11.0 L Hct 32.5 L Lymph # (Auto) Sodium Potassium BUN Creatinine Lactate Dehydrogenase C-Reactive Protein Lipase Ur Leukocyte Esterase Urine WBC Meds: Medications Acetaminophen (Tylenol) 650 mg PO Q6HP PRN PRN Reason: PAIN/FEVER > 101 Last Admin: 03/15/18 08:14 Dose: 650 mg Albuterol Sulfate (Ventolin) 2.5 mg NEB Q2HP PRN PRN Reason: Shortness Of Breath Albuterol/Ipratropium (Duoneb) 3 ml NEB Q6HRT [facility] Last Admin: 03/15/18 07:36 Dose: 3 ml Alprazolam (Xanax) 1 mg PO BIDP PRN PRN Reason: Anxiety Last Admin: 03/15/18 01:42 Dose: 1 mg Clonidine HCl (Catapres) 0.1 mg PO Q4HP PRN PRN Reason: Hypertension Duloxetine HCl (Cymbalta) 30 mg PO DAILY [facility] Last Admin: 03/15/18 08:13 Dose: 30 mg Heparin Sodium (Porcine) (Heparin) 5,000 unit SQ Q12 [facility] Last Admin: 03/15/18 08:13 Dose: 5,000 unit Lisinopril (Zestril) 10 mg PO DAILY [facility] Last Admin: 03/15/18 08:13 Dose: 10 mg Naloxone HCl (Narcan) 0.1 mg IV Q2MIN PRN PRN Reason: Opiate Reversal Ondansetron HCl (Zofran) 4 mg IV Q6HP PRN PRN Reason: Nausea And Vomiting Sodium Chloride (Saline Flush) 10 ml IV Q8 [facility] Last Admin: 03/15/18 07:08 Dose: 10 ml Vancomycin HCl (Vancomycin Per Pharmacy) 1 order IV ONCE ONE Stop: 03/15/18 10:10 Medical - PN: A/P - Time Spent With Patient Total time spent is greater than 50% in coordination of care (as documented) at patient's floor/unit and/or counseling patient: - Narrative A/P Narrative: A/P Acute on Chronic Renal failure Urinary Tract infection, Enterococcus UTI Right Moderate hydronephrosis with hydroureter, due to stricture vs stone Advanced Dementia Chronic respiratory failure Pulmonary fibrosis COPD Plan continue with IV fluids trend creatinine, creat improving IV zosyn changed to vanco given enterococus, s/p stent placement Urology help appreciated DUpeace to continue Oxygen supplementation to keep osat > 90 DVT hep sq Diet regular, DNR code status. Medical - PN: Qual - VTE Deep Vein Thrombosis/Pulmonary Embolism Present on Admission: No
[2018-03-15] MEDS ORDERED: VANCOMYCIN 1,000 MG in 0.9 % SODIUM CHLORIDE 250 ML IV ONE (11:00)
[2018-03-16] MEDS: IPRATROPIUM/ALBUTEROL 3 ML AMPUL.NEB NEB SCH ×4 (01:12→19:04)
[2018-03-16] MEDS: 0.9 % SODIUM CHLORIDE 10 ML SYRINGE IV SCH ×3 (07:44→20:36)
[2018-03-16 07:50] LABS: Basophils # (Auto) 0 K/mcL (0.0-0.3); Basophils % (Auto) 0.8 % (0.0-2.0); Eosinophils # (Auto) 0.2 K/mcL (0.0-0.7); Eosinophils % (Auto) 3.2 % (0.0-7.0); Granulocytes % (Auto) 59.9 % (38.0-78.0); Lymphocytes # (Auto) 1.4 K/mcL (1.5-4.8); Lymphocytes % (Auto) 28.2 % (15.5-49.0); Mean Cell Volume 92.5 fL (80.0-100.0); Mean Corpuscular HGB Conc 33.5 g/dL (31.0-36.0); Monocytes # (Auto) 0.4 K/mcL (0.1-0.9); Monocytes % (Auto) 7.9 % (1.0-12.0); Platelet Count 246 K/mcL (140-440); RBC 3.86 M/mcL (4.00-5.20); Red Cell Distribution Width 13.8 % (11.5-14.5)
[2018-03-16 08:09] LABS: Vancomycin,Random 10.4 ug/mL
[2018-03-16 08:11] LABS: ALT/SGPT 8 U/l (0-40); Albumin 4.1 gm/dL (3.2-5.2); Albumin/Globulin Ratio 1.3 (1.0-2.3); Alkaline Phosphatase 69 U/L (39-117); Bilirubin,Direct < 0.2 mg/dL (0.0-0.3); Blood Urea Nitrogen 25 mg/dl (8-23); Gamma Glutamyl Transpeptidase 16 U/L (5-36); Uric Acid 3.6 mg/dL (2.5-8.0)
[2018-03-16] MEDS: LISINOPRIL 10 MG TABLET PO SCH (08:57)
[2018-03-16] MEDS: DULoxetine 30 MG CAPSULE PO SCH (08:57)
[2018-03-16] MEDS: HEPARIN 5,000 UNIT/ML VIAL SQ SCH ×2 (08:58→20:36)
[2018-03-16] MEDS: ACETAMINOPHEN 325 MG TABLET PO PRN ×2 (08:58→18:55)
[2018-03-16] MEDS ORDERED: VANCOMYCIN 1,000 MG in 0.9 % SODIUM CHLORIDE 250 ML IV SCH (09:00)
[2018-03-16] MEDS: AMOXICILLIN 250 MG CAPSULE PO SCH ×2 (11:50→20:35)
--- NOTE | 2018-03-16 14:25 | Internal Med Progress Note ---
Medical - PN: Subj Patient information: Note initiated : 03/16/18 at 2:18 pm Service Date, if different from initiated Date: [] Patient: Josephine Lowery a 87 y/o F admitted on 03/13/18 for Fever/UTI, Distal Right Ureteral Stone. Chief Complaint: [] Interval history: Ms. Lowery is a 87 year old F with history of advanced dementia, poor historian living in a [facility] presents to the emergency room for evaluation of fever. The patient was discharged recently from this facility for urinary tract infection. Based on chart review the patient had just finished the oral antibiotic. The patient's symptoms and fever had not resolved and therefore the patient was also started on p.o. ciprofloxacin a couple of days ago. Patient's symptoms did not respond to same and the patient was sent here for further evaluation. The patient is unable to provide any meaningful history. In the emergency room patient has a low-grade temperature of 99.3, saturating 90 % on 3 L of oxygen. Heart rate and blood pressure normal. Labs showed normal WBC count, patient had mildly elevated creatinine at 1.5, UA positive. Chest x-ray shows pulmonary fibrosis with slight worsening Based on the post forms the patient was comfort care status at the [facility]. Patient was initially presented to the hospital for further management. However given the comfort care status I was not entirely sure if it patient was warranted. The ER physician talked to family member of the patient who noted that the patient will undergo any necessary procedure and would just be DNR and not comfort care status. Patient being admitted for management of UTI, recurrent, and acute on chronic renal failure. CT of the abdomen pelvis and chest was ordered. This showed the patient has a right-sided hydronephrosis with a stone in the ureter. This is most likely the reason the patient has had failed treatments with oral antibiotics. I spoke with Dr. Estrada who will review the patient's chart tomorrow. Patient will be kept n.p.o. midnight for possible stent placement 03/14 Patient seen and examined, no acute overnight events sitting comfortably in the chair. She has no complaints. Seen by Dr. Estrada plan for procedure today. Creatinine improved to 1.2 03/15 Pt seen examined, no acute ovenright issues doing well, patient urine cx is growing enterococcus, IV abx switched to vanco No stone noted on uretroscopy, stent placed stil on 2 L oxygen, but overall doing well 03/16 Patient seen examined, in chair, comfortable, on 2 L oxygen awaiting discharge Urine culture is enterococcus, switched to oral amoxicillin Pertinent ROS: Denies headache, dizziness Denies chest pain, palpitations Denies cough or shortness of breath Denies abdominal pain, nausea or vomiting. - Constitutional Vitals: Vital Signs Temp Pulse Resp BP Pulse Ox 98.2 F 88 22 192/90 96 03/16/18 11:47 03/16/18 07:20 03/16/18 11:47 03/16/18 11:47 03/16/18 11:47 Period Temp Pulse Resp BP Sys/Rodriguez Pulse Ox Last 24 Hr 97.3 F-98.4 F 75-88 16-22 139-192/73-90 93-99 Intake and Output 03/16/18 03/16/18 03/16/18 05:59 13:59 21:59 Intake Total 800 / 800 120 / 120 Output Total 200 / 200 750 / 750 Balance 600 / 600 -630 / -630 Intake & Output: Intake & Output 03/16/18 03/16/18 03/16/18 05:59 13:59 21:59 Intake Total 800 / 800 120 / 120 Output Total 200 / 200 750 / 750 Balance 600 / 600 -630 / -630 Intake: Oral 800 / 800 120 / 120 Output: Void Amount 200 / 200 750 / 750 # of times incontinent of urine 0 / 0 Other: Meal Lunch Percent of Meal Consumed 75% Feeding Ability Independent Urine Appearance Cloudy Cloudy Urine Color [place] Blood Tinged Urine Odor Normal Stool Size Small Small Stool Color Brown Brown Stool Consistency Dry and Hard [place] # Voids 1 # Bowel Movements 1 # of times incontinent of 0 Bowels Exam: Constitutional; Afebrile, cooperative, alert, not in distress. Respiratory system: Air Entry equal on both sides, princess inspiratory crackles at bases or wheezing, no rhonchi. CVS- Rate rhythm regular, S1,S2 heard, no gallop, no rub. Abdomen- Soft nontender abdomen, no organomegaly, no tenderness, no guarding or rigidity, MANAGER LOCATION- AOOx1, moving all extremities, no gross focal deficit noted. Medical - PN: Obj Da - Labs CBC & Chem 7: 03/16/18 07:11 03/16/18 07:11 Labs: Abnormal Lab Results 03/16/18 03/16/18 03/15/18 07:11 07:11 07:33 RBC 3.86 L Hgb Hct 35.7 L Lymph # (Auto) 1.4 L Sodium Potassium BUN 25 H Creatinine 1.3 H 1.3 H Lactate Dehydrogenase 311 H 275 H C-Reactive Protein Lipase Ur Leukocyte Esterase Urine WBC 03/15/18 03/14/18 03/14/18 07:33 04:17 04:17 RBC 3.76 L 3.39 L Hgb 11.6 L 10.4 L Hct 34.6 L 31.3 L Lymph # (Auto) 1.1 L Sodium Potassium BUN 27 H Creatinine 1.2 H Lactate Dehydrogenase 273 H C-Reactive Protein Lipase Ur Leukocyte Esterase Urine WBC 03/13/18 03/13/18 03/13/18 19:30 17:51 17:51 RBC 3.53 L Hgb 11.0 L Hct 32.5 L Lymph # (Auto) Sodium 131 L Potassium 5.2 H BUN 36 H Creatinine 1.5 H Lactate Dehydrogenase C-Reactive Protein 5.5 H Lipase 168 H Ur Leukocyte Esterase 250 A Urine WBC 49 H Meds: Medications Acetaminophen (Tylenol) 650 mg PO Q6HP PRN PRN Reason: PAIN/FEVER > 101 Last Admin: 03/16/18 08:58 Dose: 650 mg Albuterol Sulfate (Ventolin) 2.5 mg NEB Q2HP PRN PRN Reason: Shortness Of Breath Albuterol/Ipratropium (Duoneb) 3 ml NEB Q6HRT [facility] Last Admin: 03/16/18 07:20 Dose: Not Given Alprazolam (Xanax) 1 mg PO BIDP PRN PRN Reason: Anxiety Last Admin: 03/15/18 23:59 Dose: 1 mg Amoxicillin (Amoxicillin) 500 mg PO BID [facility] Last Admin: 03/16/18 11:50 Dose: 500 mg Clonidine HCl (Catapres) 0.1 mg PO Q4HP PRN PRN Reason: Hypertension Last Admin: 03/16/18 11:50 Dose: 0.1 mg Duloxetine HCl (Cymbalta) 30 mg PO DAILY [facility] Last Admin: 03/16/18 08:57 Dose: 30 mg Heparin Sodium (Porcine) (Heparin) 5,000 unit SQ Q12 [facility] Last Admin: 03/16/18 08:58 Dose: 5,000 unit Lisinopril (Zestril) 10 mg PO DAILY [facility] Last Admin: 03/16/18 08:57 Dose: 10 mg Naloxone HCl (Narcan) 0.1 mg IV Q2MIN PRN PRN Reason: Opiate Reversal Ondansetron HCl (Zofran) 4 mg IV Q6HP PRN PRN Reason: Nausea And Vomiting Sodium Chloride (Saline Flush) 10 ml IV Q8 [facility] Last Admin: 03/16/18 13:54 Dose: 10 ml Medical - PN: A/P - Time Spent With Patient Total time spent is greater than 50% in coordination of care (as documented) at patient's floor/unit and/or counseling patient: - Narrative A/P Narrative: A/P Acute on Chronic Renal failure Urinary Tract infection, Enterococcus UTI Right Moderate hydronephrosis with hydroureter, due to stricture vs stone Advanced Dementia Chronic respiratory failure Pulmonary fibrosis COPD Plan d/c Fluids, trend creatinine, creat stable On po amoxicillin now, enterococus sensitive to penicillin Urology help appreciated Taisha to continue Oxygen supplementation to keep osat > 90 DVT hep sq Diet regular, DNR code status. Medical - PN: Qual - VTE Deep Vein Thrombosis/Pulmonary Embolism Present on Admission: No
[2018-03-16] MEDS: ALPRAZolam 0.5 MG TABLET PO PRN (20:35)
[2018-03-17] MEDS: IPRATROPIUM/ALBUTEROL 3 ML AMPUL.NEB NEB SCH ×3 (01:40→13:39)
[2018-03-17] MEDS: 0.9 % SODIUM CHLORIDE 10 ML SYRINGE IV SCH ×2 (05:36→13:39)
[2018-03-17 05:41] LABS: Basophils # (Auto) 0.1 K/mcL (0.0-0.3); Basophils % (Auto) 1.7 % (0.0-2.0); Eosinophils # (Auto) 0.2 K/mcL (0.0-0.7); Eosinophils % (Auto) 4.4 % (0.0-7.0); Granulocytes % (Auto) 47.4 % (38.0-78.0); Lymphocytes # (Auto) 1.7 K/mcL (1.5-4.8); Lymphocytes % (Auto) 35.1 % (15.5-49.0); Mean Cell Volume 92.2 fL (80.0-100.0); Mean Corpuscular HGB Conc 33.2 g/dL (31.0-36.0); Mean Corpuscular Hemoglobin 30.6 pg (26.0-34.0); Monocytes # (Auto) 0.6 K/mcL (0.1-0.9); Monocytes % (Auto) 11.4 % (1.0-12.0); Platelet Count 230 K/mcL (140-440); RBC 3.42 M/mcL (4.00-5.20); Red Cell Distribution Width 14.1 % (11.5-14.5)
[2018-03-17 06:14] LABS: ALT/SGPT 6 U/l (0-40); Albumin 3.8 gm/dL (3.2-5.2); Albumin/Globulin Ratio 1.7 (1.0-2.3); Alkaline Phosphatase 67 U/L (39-117); Bilirubin,Direct < 0.2 mg/dL (0.0-0.3); Blood Urea Nitrogen 18 mg/dl (8-23); Gamma Glutamyl Transpeptidase 13 U/L (5-36); Uric Acid 3.6 mg/dL (2.5-8.0)
[2018-03-17] MEDS: AMOXICILLIN 250 MG CAPSULE PO SCH (08:17)
[2018-03-17] MEDS: ACETAMINOPHEN 325 MG TABLET PO PRN (08:19)
[2018-03-17] MEDS: DULoxetine 30 MG CAPSULE PO SCH (08:19)
[2018-03-17] MEDS: HEPARIN 5,000 UNIT/ML VIAL SQ SCH (08:21)
[2018-03-17] MEDS: LISINOPRIL 10 MG TABLET PO SCH (08:21)
--- NOTE | 2018-03-17 11:50 | Discharge Summary ---
Medical - DS: Prov Patient information: Note initiated : 03/17/18 at 11:47 am Service Date, if different from initiated Date: [] Patient: Josephine Lowery 87 y/o F admitted on 03/13/18 for Fever/UTI, Distal Right Ureteral Stone. Chief Complaint: [] Date of admission: 03/13/18 21:18 Discharge date: 03/17/18 Primary care physician: Cecile Birmingham Admitting clinician: Ashley Curry Consults: 03/13/18 Consult to Physician [CONS] Stat Comment: Consulting Provider: Ashley Curry Reason For Exam: Physician to Consult 03/13/18 21:33 Consult to Physician [CONS] Stat Comment: Consulting Provider: Robin Estrada Reason For Exam: Physician to Consult Discharging clinician: Ashley Curry Medical - DS: Meds - Discharge Medications Prescriptions: ALPRAZolam [Xanax] 1 mg PO BIDP PRN #20 tab PRN Reason: Anxiety Amoxicillin 500 mg PO TID #42 cap traMADol [Ultram] 50 - 100 mg PO Q6HP PRN #30 tab PRN Reason: Pain Active and Home Medications: Home Medications Ondansetron HCl [Zofran ODT] 4 mg SL Q4-6HP PRN #14 tab 02/03/18 [Rx Confirmed 03/13/18 Last Taken Unknown] ALPRAZolam [Xanax] 1 mg PO BIDP PRN #40 tab 02/27/18 [Rx Confirmed 03/13/18 Last Taken 03/13/18 08:52] DULoxetine [Cymbalta] 30 mg PO DAILY #30 cap 02/27/18 [Rx Confirmed 03/13/18 Last Taken 03/13/18 08:00] Lisinopril [Zestril] 10 mg PO DAILY #30 tab 02/27/18 [Rx Confirmed 03/13/18 Last Taken 03/13/18 08:00] Acetaminophen [Non-Aspirin] 650 mg PO Q4HP PRN 03/13/18 [History Confirmed 03/13 Last Taken 03/04/18 19:18] Bisacodyl [Dulcolax] 10 mg AR ONCE PRN 03/13/18 [History Confirmed 03/13/18 Last Taken Unknown] Ciprofloxacin [Cipro] 250 mg PO BID 03/13/18 [History Confirmed 03/13/18 Last Taken 03/13/18 17:00] Na Phos,M-B/Na Phos,Di-Ba [Fleets Adult] 1 dose AR DAILYP PRN 03/13/18 [History Confirmed 03/13/18 Last Taken Unknown] Polyethylene Glycol 3350 [Miralax] 17 gm PO ONCE 03/13/18 [History Confirmed Last Taken Unknown] traMADol [Ultram] 50 - 100 mg PO Q6HP PRN 03/13/18 [History Confirmed 03/13/18 Last Taken 03/13/18 08:51] hydrocodone 10 mg-acetaminophen 325 mg tablet 1 tab PO Q6H 03/14/18 [History Confirmed 03/14/18 Last Taken Unknown] Medical - DS: Hosp Hospital course: Ms. Lowery is a 87 year old F with history of advanced dementia, poor historian living in a [facility] presents to the emergency room for evaluation of fever. The patient was discharged recently from this facility for urinary tract infection. Based on chart review the patient had just finished the oral antibiotic. The patient's symptoms and fever had not resolved and therefore the patient was also started on p.o. ciprofloxacin a couple of days ago. Patient's symptoms did not respond to same and the patient was sent here for further evaluation. The patient is unable to provide any meaningful history. In the emergency room patient has a low-grade temperature of 99.3, saturating 90 % on 3 L of oxygen. Heart rate and blood pressure normal. Labs showed normal WBC count, patient had mildly elevated creatinine at 1.5, UA positive. Chest x-ray shows pulmonary fibrosis with slight worsening Based on the post forms the patient was comfort care status at the [facility]. Patient was initially presented to the hospital for further management. However given the comfort care status I was not entirely sure if it patient was warranted. The ER physician talked to family member of the patient who noted that the patient will undergo any necessary procedure and would just be DNR and not comfort care status. Patient being admitted for management of UTI, recurrent, and acute on chronic renal failure. CT of the abdomen pelvis and chest was ordered. This showed the patient has a right-sided hydronephrosis with a stone in the ureter. This is most likely the reason the patient has had failed treatments with oral antibiotics. I spoke with Dr. Estrada who will review the patient's chart tomorrow. Acute kidney injury- Resolved with resolution of right sided hydronephrosis, pt at time of dicharge had Creat of 1.1 Right hydronephrosis- Due to stenosis? vs stone, - stent placed by Dr Estrada, Enterococcus UTi- Sensitive to penicillin, recieved 3 days of antibiotics here, will continue additional 7 days at discharge, to complete a 7 day course. The patient has pulmonary fibrosis, and is on oxygen, no e/o infection, will continue to be on oxygen after discharge, The rest of the stay in the hospital was unremarkable, I have stopped the oxycodone 10-325 at this time, given that she is also on xanax. I did not see much need for narcotic pain meds during this hospital stay. Discharge diagnosis: Hydronephrosis, UTI, Renal failure - Time Spent with Patient Total time spent providing and/or coordinating discharge services: Greater than 30 minutes Medical - DS: Exam - Constitutional Vitals: Vital Signs Temp Pulse Pulse Resp BP Pulse Ox 03/17/18 10:33 98.5 F 74 22 128/71 97 03/17/18 08:46 98.9 F 76 16 136/77 98 03/17/18 08:00 95 03/17/18 07:52 74 16 03/17/18 07:19 97 03/17/18 07:18 97 03/17/18 04:10 97.8 F 65 16 146/80 96 03/17/18 00:00 97.7 F 68 20 110/69 98 03/16/18 19:05 77 20 97 03/16/18 18:55 97.8 F 77 20 140/80 97 03/16/18 15:50 97.5 F 20 138/86 98 Intake and Output 03/16/18 03/17/18 03/17/18 21:59 05:59 13:59 Intake Total 1840 / 1840 0 / 0 430 / 430 Output Total 801 / 801 351 / 351 525 / 525 Balance 1039 / 1039 -351 / -351 -95 / -95 Intake: Oral 1840 / 1840 0 / 0 430 / 430 Output: Void Amount 800 / 800 350 / 350 525 / 525 # of times incontinent of urine 0 / 0 Other: Meal Dinner Breakfast Percent of Meal Consumed 100% 90 Feeding Ability Independent Assist with Tray Set Up Urine Appearance Cloudy Cloudy Cloudy Urine Color Zap Zap Red Brown Urine Odor Normal Normal Stool Size Small Small Stool Color Brown Brown Stool Consistency Soft Formed # Voids 1 1 # Bowel Movements 1 1 # of times incontinent of 1 0 Bowels Weight 146 lb 147 lb 8 oz Patient Weight 03/18/18 05:59 Weight 147 lb 8 oz Additional comments: Constitutional; Afebrile, cooperative, alert, not in distress. Respiratory system: Air Entry equal on both sides,mild inspiratory crackles at bases, CVS- Rate rhythm regular, S1,S2 heard, no gallop, no rub. Abdomen- Soft nontender abdomen, no organomegaly, no tenderness, no guarding or rigidity, MILLER HELPER- AOOx1, moving all extremities, no gross focal deficit noted. Medical - DS: Data Labs on day of discharge: Labs from last 24 hours 03/17/18 03/17/18 03/17/18 08:06 04:10 04:10 WBC 4.9 RBC 3.42 L Hgb 10.5 L Hct 31.6 L MCV 92.2 MCH 30.6 MCHC 33.2 RDW 14.1 Plt Count 230 MPV 7.9 Gran % 47.4 Lymph % (Auto) 35.1 [place] % (Auto) 11.4 Eos % (Auto) 4.4 Baso % (Auto) 1.7 Gran # 2.3 Lymph # (Auto) 1.7 [place] # (Auto) 0.6 Eos # (Auto) 0.2 Baso # (Auto) 0.1 Sodium 136 Potassium 4.3 Chloride 97 Carbon Dioxide 29 Anion Gap 10.0 BUN 18 Creatinine 1.1 GFR Calculation 45 Glucose 100 Uric Acid 3.6 Calcium 9.0 Phosphorus 3.5 Magnesium 2.2 Total Bilirubin 0.4 Direct Bilirubin < 0.2 GGT 13 AST 10 ALT 6 Alkaline Phosphatase 67 Lactate Dehydrogenase 234 Total Protein 6.1 Albumin 3.8 Globulin 2.3 Albumin/Globulin Ratio 1.7 Triglycerides 133 Vancomycin Trough 12.4 Medical - DS: A/P - Patient/Caregiver Discharge Instructions Activity: increase activity as tolerated, wear oxygen at all times Diet: Dysphagia Advanced (Thin liquids. ) Additional Instructions: Please take amoxicillin 500mg TID for 7 more days Go to the ER if worsening condition, chest pain, shortness of breath or any other acute concern. Prescriptions: ALPRAZolam [Xanax] 1 mg PO BIDP PRN #20 tab PRN Reason: Anxiety Amoxicillin 500 mg PO TID #42 cap traMADol [Ultram] 50 - 100 mg PO Q6HP PRN #30 tab PRN Reason: Pain Other Amb Orders: OT Discharge Order Location: None Selected Physical Therapy at Discharge - General Location: None Selected ST Discharge Order Location: None Selected Wound Care Instructions Location: None Selected - Follow up Plan Follow up with: Cecile Birmingham MD [Primary Care Provider] - Guilherme Curtis MD [Physician] - (follow up at wound healing center in 1 week as new patient) Disposition: Xfer SNF Prognosis: Fair Rehab Potential: Fair I certify that the patient requires SNF services: Yes Overall status at discharge: patient is progressing back to baseline Medical - DS: Qual - VTE Deep Vein Thrombosis/Pulmonary Embolism Present on Admission: No
[2018-03-17] MEDS ORDERED: AMOXICILLIN 250 MG CAPSULE PO SCH (15:00)
== END 2018-03-17 13:52 | DRG 659 ==
LOC: ED 16:57 → MEDSUR 21:18
PROVIDERS: ADMIT Internal Medicine; ATTEND Internal Medicine
CPT/HCPCS: 97161; 97167; 99223; 99231; A6213; C1758; C1769; J1100; J1644; J2001; J2250; J2405; J2543; J3010; J3370; J7030; J7050; J7060; J7120; J7620; J7620-GY; Q9967

== ENCOUNTER 2019-03-29 19:21 | Inpatient (IN) ==
--- NOTE | 2019-03-29 20:31 | Cat Scan Report ---
CLINICAL INFORMATION: Fall. Head injury. COMPARISON: None. TECHNIQUE: Axial noncontrast-enhanced images through the brain. Sagittally and coronally reformatted images. FINDINGS: No acute intracranial hemorrhage. There is no subdural hematoma. No subarachnoid hemorrhage. No intra-axial hematoma. No focal intra-axial attenuation abnormality or localized mass effect. There is cerebral atrophy with prominent superficial subarachnoid spaces and ventricles. There is periventricular low density consistent with small vessel ischemic change. Brainstem and cerebellum are negative. Basilar cisterns are normal. No calvarial fracture. Temporal bones are negative. There is mild inflammatory disease within ethmoid and sphenoid sinuses. IMPRESSION: 1. Cerebral atrophy and white matter abnormality. 2. No acute abnormality. No interval change since 12/24/2018 3. Mild inflammatory disease in ethmoid and sphenoid sinuses The exam was performed using radiation dose optimization techniques including, but not limited to, automated exposure control, adjustment of the mA and/or kV according to patient size and use of iterative reconstruction technique. Interpreted and Authenticated by: Papa Browning 03/29/19
--- NOTE | 2019-03-29 20:38 | Cat Scan Report ---
CLINICAL INFORMATION: Fall. Right hip pain. TECHNIQUE: Axial noncontrast enhanced images through the pelvis and hips COMPARISON: Previous CT scan dated 05/22/2018. No plain film study was obtained FINDINGS: Previous bilateral total hip arthroplasty. There is a spiral fracture of the proximal right femoral diaphysis. This is not significantly displaced or angulated. Fracture passes through the right femoral stem. Plain film examination is recommended. Replaced right femoral head and neck are negative. Right acetabulum is negative. No acute fracture. There is a healed fracture of the right pubic bone. No acute fracture. Left pubic bone is negative. Sacrum and coccyx are negative. Sacroiliac joints are unremarkable. There is degenerative disc disease and facet arthropathy in the lower lumbar spine. There is no intrapelvic abnormality. No intrapelvic hematoma. IMPRESSION: 1. Previous bilateral total hip arthroplasty 2. Nondisplaced spiral fracture of the proximal right femoral diaphysis 3. Healed right pubic fracture Interpreted and Authenticated by: Papa Browning 03/29/19
--- NOTE | 2019-03-29 21:34 | Emergency Department Note ---
Fall HPI - General Chief Complaint: Fall Stated Complaint: fall, right hip pain Time Seen by Provider: 03/29/19 19:40 Source: patient, family, EMS, RN notes reviewed Mode of arrival: EMS - History of Present Illness HPI Narrative: 88-year-old female presents with right hip pain. Onset about 630 this morning. She lives at [facility] and had a mechanical fall. She did hit her head. Cannot recall much else but does not believe she lost consciousness however she is confused, which is her baseline, but it is hard to get much information out for her of her. She does have significant right hip pain since. They finally decided to have her brought in [facility] because she continued with right hip pain throughout the day. Unable to bear weight. Denies numbness or tingling. D enies any other injuries. Last ate dinner this evening around 5 PM. - Related Data Home Medications Medication Instructions Recorded Confirmed Acetaminophen [Non-Aspirin] 650 mg PO Q4HP PRN 03/13/18 03/29/19 Bisacodyl [Dulcolax] 10 mg FL ONCE PRN 03/13/18 03/29/19 Na Phos,M-B/Na Phos,Di-Ba [Fleets 1 dose FL DAILYP PRN 03/13/18 03/29/19 Adult] Polyethylene Glycol 3350 [Miralax] 17 gm PO ONCE 03/13/18 03/29/19 Calcitonin,[place],Synthetic 3.7 ml NS 03/29/19 [Calcitonin-[place]] Ferrous Sulfate [Iron] 325 mg PO DAILY 03/29/19 03/29/19 Levothyroxine Sodium [Levoxyl] 88 mcg PO DAILY 03/29/19 03/29/19 Nitrofurantoin Monohyd/M-Cryst 100 mg PO BID 03/29/19 03/29/19 [Macrobid 100 mg Capsule] QUEtiapine [SEROquel] 25 mg PO HS 03/29/19 03/29/19 busPIRone HCL [Buspirone HCl] 7.5 mg PO BID 03/29/19 03/29/19 Previous Rx's Medication Instructions Recorded Ondansetron [Zofran ODT] 4 mg SL Q4-6HP PRN #14 tab 02/03/18 HYDROcodone/ACETAMINOPHEN [[place] 1 each PO Q6H #20 tab 05/22/18 5-325 Tablet] Allergies Allergy/AdvReac Type Severity Reaction Status Date / Time codeine AdvReac Mild Other Verified 03/29/19 19:28 Sulfa (Sulfonamide AdvReac Mild Congested Verified 03/29/19 19:28 Antibiotics) Review of Systems All systems ED: reviewed and negative except as stated. Fall PMH - Past Medical History [facility] Narrative: Medical History (Last Reviewed 04/30/18 @ 13:06 by Rena Luu RN) Right foot drop (Chronic) CVA (cerebral vascular accident) (Chronic) CKD (chronic kidney disease) (Chronic) BHUMIKA (acute kidney injury) (Chronic) Urinary retention (Chronic) Low blood pressure (Chronic) Idiopathic peripheral neuropathy (Chronic) Concussion (Chronic) Chronic pain (Chronic) Anemia (Chronic) Dyspnea (Chronic) Weakness (Chronic) Bronchitis (Chronic) Loss of appetite (Chronic) Cough (Chronic) Pneumonia (Chronic) Urinary tract infection (Acute) Vertebral compression fracture (Acute) Lung disease (Acute) Pericardial effusion (Acute) Cardiomegaly (Acute) Hydroureter (Acute) Hydronephrosis (Acute) Kidney stone on right side (Acute) Cataracts, bilateral (Acute) Hypothyroidism (Acute) Depression (Acute) COPD (chronic obstructive pulmonary disease) (Acute) Anxiety (Acute) Hyperlipemia (Acute) Pulmonary fibrosis (Chronic) Past Surgical History (Last Reviewed 04/30/18 @ 13:06 by Rena Luu RN) History of tonsillectomy and adenoidectomy (Acute) H/O: hysterectomy (Acute) H/O knee surgery (Acute) History of hip surgery (Acute) History of cataract surgery (Acute) Medical history: Reports: COPD, hyperlipidemia, hypertension (Sometimes has had low blood pressure.), thyroid disease (Was low in the past but not currently on any medication or replacement.), TIA, other (pulmonary fibrosis. Bilateral cataracts (surgically treated). NO BLOOD THINNERS aspirin.). 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 Denies: marijuana Physical Exam Limitations: no limitations General appearance: alert (Alert and oriented at times but very confused other times.) Head: atraumatic, normocephalic, normal inspection Eye: Present: normal appearance, PERRL. Absent: conjunctival injection ENT: Present: normal exam, normal oropharynx, mucous membranes moist, normal external ear exam Neck: Present: normal inspection, full ROM, trachea midline. Absent: tenderness Chest: Present: symmetric chest wall rise Respiratory: Present: normal lung sounds bilaterally. Absent: respiratory distress, rales/crackles, wheezes, accessory muscle use Cardiovascular: Present: regular rate, normal heart sounds Extremities: Absent: normal inspection (Right hip with shortening and rotation. Tenderness diffuse right hip. Greatly limited active and passive range of motion right hip related to pain) Neurological: Present: alert, oriented X3. Absent: motor sensory deficit Patient oriented to: Present: person, place, time Speech: Present: fluid speech Coma Scale Eye Opening: Spontaneous Coma Scale Motor Response: Obeys Commands Coma Scale Verbal Response: Oriented Coma Scale Total: 15 Psychiatric: Present: normal affect, normal mood Skin: Present: warm, dry, intact, normal color Course Course Narrative: At [address] did speak with Dr. Ramsey who is on-call for orthopedics. He was able to review the CT. He would also like us to get some x-rays which we are doing. States he is not credentialed for total hips and thus we may have to transfer patient out. resident care supervisor is going to contact orthopedic group to find out if there is another provider that can take care of this patient in the morning if we can get her admitted to hospitalist service in the meantime. @[address] ortega to assume care due to shift change 03/30/19 @1000 I did assume care of this patient again. We are awaiting hospitalist call for admission and Dr. Magaña will consult and plan sx. POA for the patient is also on her way in. @ 1153 I did speak with hospitalist Dr. Garnett who agrees to accept this patient. Daughter in law who is pt's POA has signed consent for surgery Vital Signs Temperature 99.2 F H 03/29/19 19:22 Pulse Rate 109 H 03/29/19 19:22 Respiratory Rate 18 03/29/19 19:22 Blood Pressure 141/77 03/29/19 19:22 Pulse Oximetry (%) 88 L 03/29/19 19:22 Temperature 99.2 F H 03/29/19 19:22 Pulse Rate 81 03/30/19 11:00 Respiratory Rate 18 03/29/19 19:22 Blood Pressure 120/67 03/30/19 11:00 Pulse Oximetry (%) 95 03/30/19 11:00 Fall - Lab Data Lab results reviewed: Yes I reviewed the patient's lab results. Result diagrams: 03/29/19 22:55 03/29/19 22:55 Lab Results 03/29/19 03/29/19 03/29/19 Range/Units 22:51 22:55 22:55 WBC 12.0 H (4.5-11.0) K/mcL RBC 3.89 L (4.00-5.20) M/mcL Hgb 11.9 L (12.0-15.0) g/dL Hct 35.7 L (36.0-48.0) % MCV 91.8 (80.0-100.0) fL MCH 30.5 (26.0-34.0) pg MCHC 33.2 (31.0-36.0) g/dL RDW 13.6 (11.5-14.5) % Plt Count 259 (140-440) K/mcL MPV 7.8 (7.4-10.4) fL Gran % 79.2 H (38.0-78.0) % Lymph % (Auto) 11.8 L (15.5-49.0) % [place] % (Auto) 7.0 (1.0-12.0) % Eos % (Auto) 1.5 (0.0-7.0) % Baso % (Auto) 0.5 (0.0-2.0) % Gran # 9.5 H (1.8-8.0) K/mcL Lymph # (Auto) 1.4 L (1.5-4.8) K/mcL [place] # (Auto) 0.8 (0.1-0.9) K/mcL Eos # (Auto) 0.2 (0.0-0.7) K/mcL Baso # (Auto) 0.1 (0.0-0.3) K/mcL POC PT (11.9-14.5) sec POC INR (0.9-1.2) Sodium 138 (133-145) mmol/L Potassium 4.2 (3.3-5.1) mmol/L Chloride 98 (96-108) mmol/L Carbon Dioxide 29 (22-30) mmol/L Anion Gap 11.0 (8-16) BUN 27 H (8-23) mg/dl Creatinine 1.2 H (0.6-1.1) mg/dl GFR Calculation 40 Glucose 120 H (70-105) mg/dL Calcium 9.9 (8.6-10.4) mg/dl Total Bilirubin 0.5 (0.0-1.0) mg/dL AST 14 (0-37) U/l ALT 15 (0-40) U/l Alkaline Phosphatase 78 (39-117) U/L Total Protein 7.3 (5.9-8.4) gm/dL Albumin 3.6 (3.2-5.2) gm/dL Globulin 3.7 (2.2-3.7) gm/dL Albumin/Globulin Ratio 1.0 (1.0-2.3) Urine Color Yellow Urine Appearance Clear Urine pH 7.0 (5.0-9.0) Ur Specific [place] 1.012 (1.000-1.035) Urine Protein Neg (NEG) mg/dL Urine Glucose (UA) Negative (NEG) mg/dL Urine Ketones Neg (NEG) mg/dL Urine Occult Blood Neg (<0.03) mg/dL Urine Nitrate Neg (NEG) Urine Bilirubin Neg (NEG) mg/dL Urine Urobilinogen Neg (NEG) mg/dL Ur Leukocyte Esterase Neg (NEG) /uL Urine RBC 1 (0-1) /hpf Urine WBC 6 H (0-4) /hpf Ur Squamous Epith Cells < 1 (0-4) /hpf Urine Bacteria 0 (0) /hpf Ur Culture Indicated? No 03/29/19 Range/Units 23:20 WBC (4.5-11.0) K/mcL RBC (4.00-5.20) M/mcL Hgb (12.0-15.0) g/dL Hct (36.0-48.0) % MCV (80.0-100.0) fL MCH (26.0-34.0) pg MCHC (31.0-36.0) g/dL RDW (11.5-14.5) % Plt Count (140-440) K/mcL MPV (7.4-10.4) fL Gran % (38.0-78.0) % Lymph % (Auto) (15.5-49.0) % [place] % (Auto) (1.0-12.0) % Eos % (Auto) (0.0-7.0) % Baso % (Auto) (0.0-2.0) % Gran # (1.8-8.0) K/mcL Lymph # (Auto) (1.5-4.8) K/mcL [place] # (Auto) (0.1-0.9) K/mcL Eos # (Auto) (0.0-0.7) K/mcL Baso # (Auto) (0.0-0.3) K/mcL POC PT 14.2 (11.9-14.5) sec POC INR 1.2 (0.9-1.2) Sodium (133-145) mmol/L Potassium (3.3-5.1) mmol/L Chloride (96-108) mmol/L Carbon Dioxide (22-30) mmol/L Anion Gap (8-16) BUN (8-23) mg/dl Creatinine (0.6-1.1) mg/dl GFR Calculation Glucose (70-105) mg/dL Calcium (8.6-10.4) mg/dl Total Bilirubin (0.0-1.0) mg/dL AST (0-37) U/l ALT (0-40) U/l Alkaline Phosphatase (39-117) U/L Total Protein (5.9-8.4) gm/dL Albumin (3.2-5.2) gm/dL Globulin (2.2-3.7) gm/dL Albumin/Globulin Ratio (1.0-2.3) Urine Color Urine Appearance Urine pH (5.0-9.0) Ur Specific [place] (1.000-1.035) Urine Protein (NEG) mg/dL Urine Glucose (UA) (NEG) mg/dL Urine Ketones (NEG) mg/dL Urine Occult Blood (<0.03) mg/dL Urine Nitrate (NEG) Urine Bilirubin (NEG) mg/dL Urine Urobilinogen (NEG) mg/dL Ur Leukocyte Esterase (NEG) /uL Urine RBC (0-1) /hpf Urine WBC (0-4) /hpf Ur Squamous Epith Cells (0-4) /hpf Urine Bacteria (0) /hpf Ur Culture Indicated? - Radiology Data Radiology results reviewed: Yes I reviewed the patient's radiology results. Disposition Pt seen by AIRCRAFT METALSMITH/PA only: No Clinical Impression: Right femoral fracture, Fall, Dementia Disposition: Xfer As Inpt ([facility]) Condition: Good Referrals: Amadeo Maki DO [Primary Care Provider] - Arron Magaña MD [Physician] - Time of Disposition: 11:55
--- NOTE | 2019-03-29 21:49 | XRay Report ---
CLINICAL INFORMATION: Right femoral fracture TECHNIQUE: AP pelvis. AP and lateral right hip COMPARISON: Previous CT scan dated 03/29/2019 FINDINGS: Previous bilateral total hip arthroplasty. Healed right pubic bone fracture. No acute pelvic fracture. Sacrum is negative. Spiral fracture of the proximal right femoral diaphysis is nearly occult. This is not well-visualized on plain film examination. There is no displacement or angulation. IMPRESSION: 1. Proximal right femoral diaphyseal fracture is not well-visualized on plain film study. 2. Previous bilateral total hip arthroplasty 3. Healed right pubic bone fracture Interpreted and Authenticated by: Papa Browning 03/29/19
[2019-03-29] MEDS ORDERED: ONDANSETRON 4 MG/2 ML VIAL IV ONE (22:50)
[2019-03-29] MEDS: HYDROmorphone 2 MG/ML VIAL IV PRN (23:07)
[2019-03-29] MEDS: LACTATED RINGERS 1,000 ML IV SCH (23:07)
[2019-03-29 23:23] LABS: POC INR 1.2 (0.9-1.2); POC Pro Time 14.2 sec (11.9-14.5)
[2019-03-29 23:50] LABS: Basophils # (Auto) 0.1 K/mcL (0.0-0.3); Basophils % (Auto) 0.5 % (0.0-2.0); Eosinophils # (Auto) 0.2 K/mcL (0.0-0.7); Eosinophils % (Auto) 1.5 % (0.0-7.0); Granulocytes % (Auto) 79.2 % (38.0-78.0); Hematocrit 35.7 % (36.0-48.0); Hemoglobin 11.9 g/dL (12.0-15.0); Lymphocytes # (Auto) 1.4 K/mcL (1.5-4.8); Lymphocytes % (Auto) 11.8 % (15.5-49.0); Mean Cell Volume 91.8 fL (80.0-100.0); Mean Corpuscular HGB Conc 33.2 g/dL (31.0-36.0); Mean Platelet Volume 7.8 fL (7.4-10.4); Monocytes # (Auto) 0.8 K/mcL (0.1-0.9); Platelet Count 259 K/mcL (140-440); RBC 3.89 M/mcL (4.00-5.20); Red Cell Distribution Width 13.6 % (11.5-14.5)
[2019-03-30 00:07] LABS: ALT/SGPT 15 U/l (0-40); AST/SGOT 14 U/l (0-37); Albumin 3.6 gm/dL (3.2-5.2); Alkaline Phosphatase 78 U/L (39-117); Bilirubin,Total 0.5 mg/dL (0.0-1.0); Blood Urea Nitrogen 27 mg/dl (8-23); Calcium 9.9 mg/dl (8.6-10.4); Carbon Dioxide 29 mmol/L (22-30); Chloride 98 mmol/L (96-108); Globulin 3.7 gm/dL (2.2-3.7); Glomerular Filtration Rate 40; Glucose 120 mg/dL (70-105)
[2019-03-30] MEDS: HYDROmorphone 2 MG/ML VIAL IV PRN ×4 (00:21→06:00)
[2019-03-30 00:30] LABS: Appearance,Urine CLEAR; Bacteria,Urine 0 /hpf (0); Bilirubin,Urine NEG (NEG); Color,Urine YELLOW; Culture Indicated,Urine NO; Glucose,Urine (UA) NEGATIVE (NEG); Ketones,Urine NEG (NEG); Leukocyte Esterase,Urine NEG /uL (NEG); Nitrate,Urine NEG (NEG); Protein,Urine NEG (NEG); Specific Gravity,Urine 1.012 (1.000-1.035); Urine Blood NEG mg/dL (<0.03); Urine RBC 1 /hpf (0-1); Urine Squamous Epithelial Cell < 1 /hpf (0-4); Urine WBC 6 /hpf (0-4); Urobilinogen,Urine NEG (NEG)
--- NOTE | 2019-03-30 08:53 | Emergency Department Note ---
Fall HPI - General Chief Complaint: Fall Stated Complaint: fall, right hip pain Time Seen by Provider: 03/29/19 19:40 Source: patient, family, EMS, RN notes reviewed Mode of arrival: EMS - History of Present Illness HPI Narrative: This patient remained in the emergency room through the night and was very calm and comfortable. I discussed the case with Dr. Chacko in the morning who accepted the patient for admission. We will be talking to the hospitalist service to arrange this. - Related Data Home Medications Medication Instructions Recorded Confirmed Acetaminophen [Non-Aspirin] 650 mg PO Q4HP PRN 03/13/18 03/29/19 Bisacodyl [Dulcolax] 10 mg [place] ONCE PRN 03/13/18 03/29/19 Na Phos,M-B/Na Phos,Di-Ba [Fleets 1 dose [place] DAILYP PRN 03/13/18 03/29/19 Adult] Polyethylene Glycol 3350 [Miralax] 17 gm PO ONCE 03/13/18 03/29/19 Calcitonin,[place],Synthetic 3.7 ml NS 03/29/19 [Calcitonin-[place]] Ferrous Sulfate [Iron] 325 mg PO DAILY 03/29/19 03/29/19 Levothyroxine Sodium [Levoxyl] 88 mcg PO DAILY 03/29/19 03/29/19 Nitrofurantoin Monohyd/M-Cryst 100 mg PO BID 03/29/19 03/29/19 [Macrobid 100 mg Capsule] QUEtiapine [SEROquel] 25 mg PO HS 03/29/19 03/29/19 busPIRone HCL [Buspirone HCl] 7.5 mg PO BID 03/29/19 03/29/19 Previous Rx's Medication Instructions Recorded Ondansetron [Zofran ODT] 4 mg SL Q4-6HP PRN #14 tab 02/03/18 HYDROcodone/ACETAMINOPHEN [[place] 1 each PO Q6H #20 tab 05/22/18 5-325 Tablet] Allergies Allergy/AdvReac Type Severity Reaction Status Date / Time codeine AdvReac Mild Other Verified 03/29/19 19:28 Sulfa (Sulfonamide AdvReac Mild Congested Verified 03/29/19 19:28 Antibiotics) Fall PMH - Past Medical History Medical history: Reports: COPD, hyperlipidemia, hypertension (Sometimes has had low blood pressure.), thyroid disease (Was low in the past but not currently on any medication or replacement.), TIA, other (pulmonary fibrosis. Bilateral cataracts (surgically treated). NO BLOOD THINNERS aspirin.). 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 Denies: marijuana Physical Exam Limitations: no limitations General appearance: alert (Alert and oriented at times but very confused other times.), in no apparent distress Head: atraumatic Respiratory: Present: normal lung sounds bilaterally Cardiovascular: Present: regular rate, normal rhythm, normal heart sounds Course Vital Signs Temperature 99.2 F H 03/29/19 19:22 Pulse Rate 109 H 03/29/19 19:22 Respiratory Rate 18 03/29/19 19:22 Blood Pressure 141/77 03/29/19 19:22 Pulse Oximetry (%) 88 L 03/29/19 19:22 Temperature 99.2 F H 03/29/19 19:22 Pulse Rate 73 03/30/19 08:50 Respiratory Rate 18 03/29/19 19:22 Blood Pressure 92/53 03/30/19 08:02 Pulse Oximetry (%) 97 03/30/19 08:50 Fall - MDM Narrative Medical decision making narrative: This patient will be admitted to hospital service after change of shift so final disposition per Dr. Thakur. - Lab Data Lab results reviewed: Yes I reviewed the patient's lab results. Result diagrams: 03/29/19 22:55 03/29/19 22:55 Lab Results 03/29/19 03/29/19 03/29/19 Range/Units 22:51 22:55 22:55 WBC 12.0 H (4.5-11.0) K/mcL RBC 3.89 L (4.00-5.20) M/mcL Hgb 11.9 L (12.0-15.0) g/dL Hct 35.7 L (36.0-48.0) % MCV 91.8 (80.0-100.0) fL MCH 30.5 (26.0-34.0) pg MCHC 33.2 (31.0-36.0) g/dL RDW 13.6 (11.5-14.5) % Plt Count 259 (140-440) K/mcL MPV 7.8 (7.4-10.4) fL Gran % 79.2 H (38.0-78.0) % Lymph % (Auto) 11.8 L (15.5-49.0) % [place] % (Auto) 7.0 (1.0-12.0) % Eos % (Auto) 1.5 (0.0-7.0) % Baso % (Auto) 0.5 (0.0-2.0) % Gran # 9.5 H (1.8-8.0) K/mcL Lymph # (Auto) 1.4 L (1.5-4.8) K/mcL [place] # (Auto) 0.8 (0.1-0.9) K/mcL Eos # (Auto) 0.2 (0.0-0.7) K/mcL Baso # (Auto) 0.1 (0.0-0.3) K/mcL POC PT (11.9-14.5) sec POC INR (0.9-1.2) Sodium 138 (133-145) mmol/L Potassium 4.2 (3.3-5.1) mmol/L Chloride 98 (96-108) mmol/L Carbon Dioxide 29 (22-30) mmol/L Anion Gap 11.0 (8-16) BUN 27 H (8-23) mg/dl Creatinine 1.2 H (0.6-1.1) mg/dl GFR Calculation 40 Glucose 120 H (70-105) mg/dL Calcium 9.9 (8.6-10.4) mg/dl Total Bilirubin 0.5 (0.0-1.0) mg/dL AST 14 (0-37) U/l ALT 15 (0-40) U/l Alkaline Phosphatase 78 (39-117) U/L Total Protein 7.3 (5.9-8.4) gm/dL Albumin 3.6 (3.2-5.2) gm/dL Globulin 3.7 (2.2-3.7) gm/dL Albumin/Globulin Ratio 1.0 (1.0-2.3) Urine Color Yellow Urine Appearance Clear Urine pH 7.0 (5.0-9.0) Ur Specific [place] 1.012 (1.000-1.035) Urine Protein Neg (NEG) mg/dL Urine Glucose (UA) Negative (NEG) mg/dL Urine Ketones Neg (NEG) mg/dL Urine Occult Blood Neg (<0.03) mg/dL Urine Nitrate Neg (NEG) Urine Bilirubin Neg (NEG) mg/dL Urine Urobilinogen Neg (NEG) mg/dL Ur Leukocyte Esterase Neg (NEG) /uL Urine RBC 1 (0-1) /hpf Urine WBC 6 H (0-4) /hpf Ur Squamous Epith Cells < 1 (0-4) /hpf Urine Bacteria 0 (0) /hpf Ur Culture Indicated? No 03/29/19 Range/Units 23:20 WBC (4.5-11.0) K/mcL RBC (4.00-5.20) M/mcL Hgb (12.0-15.0) g/dL Hct (36.0-48.0) % MCV (80.0-100.0) fL MCH (26.0-34.0) pg MCHC (31.0-36.0) g/dL RDW (11.5-14.5) % Plt Count (140-440) K/mcL MPV (7.4-10.4) fL Gran % (38.0-78.0) % Lymph % (Auto) (15.5-49.0) % [place] % (Auto) (1.0-12.0) % Eos % (Auto) (0.0-7.0) % Baso % (Auto) (0.0-2.0) % Gran # (1.8-8.0) K/mcL Lymph # (Auto) (1.5-4.8) K/mcL [place] # (Auto) (0.1-0.9) K/mcL Eos # (Auto) (0.0-0.7) K/mcL Baso # (Auto) (0.0-0.3) K/mcL POC PT 14.2 (11.9-14.5) sec POC INR 1.2 (0.9-1.2) Sodium (133-145) mmol/L Potassium (3.3-5.1) mmol/L Chloride (96-108) mmol/L Carbon Dioxide (22-30) mmol/L Anion Gap (8-16) BUN (8-23) mg/dl Creatinine (0.6-1.1) mg/dl GFR Calculation Glucose (70-105) mg/dL Calcium (8.6-10.4) mg/dl Total Bilirubin (0.0-1.0) mg/dL AST (0-37) U/l ALT (0-40) U/l Alkaline Phosphatase (39-117) U/L Total Protein (5.9-8.4) gm/dL Albumin (3.2-5.2) gm/dL Globulin (2.2-3.7) gm/dL Albumin/Globulin Ratio (1.0-2.3) Urine Color Urine Appearance Urine pH (5.0-9.0) Ur Specific [place] (1.000-1.035) Urine Protein (NEG) mg/dL Urine Glucose (UA) (NEG) mg/dL Urine Ketones (NEG) mg/dL Urine Occult Blood (<0.03) mg/dL Urine Nitrate (NEG) Urine Bilirubin (NEG) mg/dL Urine Urobilinogen (NEG) mg/dL Ur Leukocyte Esterase (NEG) /uL Urine RBC (0-1) /hpf Urine WBC (0-4) /hpf Ur Squamous Epith Cells (0-4) /hpf Urine Bacteria (0) /hpf Ur Culture Indicated? - Radiology Data Radiology results reviewed: Yes I reviewed the patient's radiology results. Disposition Pt seen by MANAGER FLIGHT/PA only: No Clinical Impression: Right femoral fracture Disposition: Still a Patient Condition: Good Referrals: Amadeo Maki DO [Primary Care Provider] - Time of Disposition: 08:53
--- NOTE | 2019-03-30 13:29 | Internal Med History&Physical ---
Medical - H&P: [facility] Patient information: Note initiated : 03/30/19 at 1:20 pm Service Date, if different from initiated Date: [] Patient: Josephine Lowery a 88 y/o F admitted on 03/30/19 for fall, right hip pain. Chief Complaint: [] History of present illness: Ms. Lowery is a 88 year old F Presents the ED after she tripped and fell in her room, at [facility], about 6:30 PM. She reports hitting her head and right hip. No loss of consciousness. Right hip with increased pain. CT brain no acute. Case was discussed with orthopedic surgeon, Dr. Chacko. She does know that she is here because she fell and has a hip fracture. But otherwise is a poor historian and I am unable to get any other history from her. He does admit to some hip pain but unable to get accurate review of systems. Unable to get review of systems given underlying advanced dementia. Medical - H&P: [facility] Medical history: Medical History (Last Reviewed 04/30/18 @ 13:06 by Rena Luu RN) Right foot drop (Chronic) CVA (cerebral vascular accident) (Chronic) CKD (chronic kidney disease) (Chronic) BHUMIKA (acute kidney injury) (Chronic) Urinary retention (Chronic) Low blood pressure (Chronic) Idiopathic peripheral neuropathy (Chronic) Concussion (Chronic) Chronic pain (Chronic) Anemia (Chronic) Dyspnea (Chronic) Weakness (Chronic) Bronchitis (Chronic) Loss of appetite (Chronic) Cough (Chronic) Pneumonia (Chronic) Urinary tract infection (Acute) Vertebral compression fracture (Acute) Lung disease (Acute) Pericardial effusion (Acute) Cardiomegaly (Acute) Hydroureter (Acute) Hydronephrosis (Acute) Kidney stone on right side (Acute) Cataracts, bilateral (Acute) Hypothyroidism (Acute) Depression (Acute) COPD (chronic obstructive pulmonary disease) (Acute) Anxiety (Acute) Hyperlipemia (Acute) Pulmonary fibrosis (Chronic) Past Surgical History (Last Reviewed 04/30/18 @ 13:06 by Rena Luu RN) History of tonsillectomy and adenoidectomy (Acute) H/O: hysterectomy (Acute) H/O knee surgery (Acute) History of hip surgery (Acute) History of cataract surgery (Acute) Family History (Last Reviewed 04/30/18 @ 13:06 by Rena Luu RN) Mother Malignant neoplasm of ovary Father Family history of malignant neoplasm of stomach Social History (Last Updated 04/30/18 @ 13:28 by Robin Estrada MD) [facility] Medical - H&P: Meds Home Medications Medication Instructions Recorded Confirmed Type Ondansetron [Zofran ODT] 4 mg SL Q4-6HP PRN #14 tab 02/03/18 03/30/19 Rx Acetaminophen [Non-Aspirin] 650 mg PO Q4HP PRN 03/13/18 03/30/19 History Bisacodyl [Dulcolax] 10 mg ND ONCE PRN 03/13/18 03/30/19 History Na Phos,M-B/Na Phos,Di-Ba [Fleets 1 dose ND DAILYP PRN 03/13/18 03/30/19 History Adult] Polyethylene Glycol 3350 [Miralax] 17 gm PO ONCE 03/13/18 03/30/19 History HYDROcodone/ACETAMINOPHEN [[place] 1 each PO Q6H #20 tab 05/22/18 03/30/19 Rx 5-325 Tablet] Calcitonin,[place],Synthetic 3.7 ml NS 03/29/19 History [Calcitonin-[place]] Ferrous Sulfate [Iron] 325 mg PO DAILY 03/29/19 03/30/19 History Levothyroxine Sodium [Levoxyl] 88 mcg PO DAILY 03/29/19 03/30/19 History Nitrofurantoin Monohyd/M-Cryst 100 mg PO BID 03/29/19 03/30/19 History [Macrobid 100 mg Capsule] QUEtiapine [SEROquel] 25 mg PO HS 03/29/19 03/30/19 History busPIRone HCL [Buspirone HCl] 7.5 mg PO BID 03/29/19 03/30/19 History Allergies Allergy/AdvReac Type Severity Reaction Status Date / Time codeine AdvReac Mild Other Verified 03/29/19 19:28 Sulfa (Sulfonamide AdvReac Mild Congested Verified 03/29/19 19:28 Antibiotics) Medical - H&P: Exam - Constitutional Vitals: Temp Pulse Resp BP Pulse Ox 99.2 F H 81 18 130/77 95 03/30/19 13:02 03/30/19 13:02 03/30/19 13:02 03/30/19 13:02 03/30/19 13:02 Exam: General: Alert, Awake, No acute Distress Eyes/N/T: PEERL, DMM Head/Neck: neck supple, normocephalic atraumatic CV: RRR, No murmurs, normal s1/s2 Pulm: Clear b/l, no wheezing/rhonchi/rales Abd: soft, nontender, +BS x4 Ext: no clubbing/cyanosis/edema Neuro: Alert, no focal deficits, moves all extremities to touch, symm ion exchange operator strength, CN 2-12 grossly intact, Skin: warm/dry Medical - H&P: Reslt - Labs CBC & Chem 7: 03/29/19 22:55 03/29/19 22:55 Labs: Short CBC 03/29/19 Range/Units 22:55 WBC 12.0 H (4.5-11.0) K/mcL Hgb 11.9 L (12.0-15.0) g/dL Hct 35.7 L (36.0-48.0) % Plt Count 259 (140-440) K/mcL BMP 03/29/19 22:55 Sodium 138 Potassium 4.2 Chloride 98 Carbon Dioxide 29 BUN 27 H Creatinine 1.2 H Glucose 120 H Calcium 9.9 Liver Function 03/29/19 Range/Units 22:55 Total Bilirubin 0.5 (0.0-1.0) mg/dL AST 14 (0-37) U/l ALT 15 (0-40) U/l Alkaline Phosphatase 78 (39-117) U/L Albumin 3.6 (3.2-5.2) gm/dL Urine 03/29/19 Range/Units 22:51 Urine Color Yellow Urine Appearance Clear Urine pH 7.0 (5.0-9.0) Ur Specific [place] 1.012 (1.000-1.035) Urine Protein Neg (NEG) mg/dL Urine Glucose (UA) Negative (NEG) mg/dL - Impressions Spiral fracture periprosthetic right hip Medical - H&P: A/P - Narrative A/P Narrative: A: *Right periprosthetic spiral fracture: s/p trip/fall *Low BP in ED: improving *Advanced Dementia: on buspar/seroquel *CKD IIIb: *Be a chronic: *COPD( )/Pulm fibrosis: *Hypothyroidism: * P: -Dr. Magaña for Ortho -Patient is at increased risk perioperatively given advanced age dementia underlying comorbidities, case d/w with POA in ED. -pain control -monitor BP -high risk for hospital delirium - -IS -pt/ot -ppx: SCD (post-op per ortho) DNR
[2019-03-30] MEDS: LACTATED RINGERS 1,000 ML IV SCH (13:38)
[2019-03-30] MEDS ORDERED: POLYETHYLENE GLYCOL 3350 17 GM PACKET PO PRN ×2 (13:54→19:13)
[2019-03-30] MEDS ORDERED: MAGNESIUM SULFATE 2 GM/50 ML BAG IV PRN ×2 (13:54→19:13)
[2019-03-30] MEDS ORDERED: ACETAMINOPHEN 325 MG TABLET PO PRN ×2 (13:54→19:13)
[2019-03-30] MEDS ORDERED: IPRATROPIUM/ALBUTEROL 3 ML AMPUL.NEB NEB PRN ×4 (13:54→19:13)
[2019-03-30] MEDS ORDERED: POTASSIUM CHLORIDE 40 MEQ in DEXTROSE 5% IN WATER 500 ML IV PRN ×2 (13:54→19:13)
[2019-03-30] MEDS ORDERED: HYDROcodone/APAP 5/325MG TABLET PO PRN ×2 (13:54→19:13)
[2019-03-30] MEDS ORDERED: POTASSIUM CHLORIDE 20 MEQ TABLET PO PRN ×4 (13:54→19:13)
[2019-03-30] MEDS ORDERED: ONDANSETRON 4 MG/2 ML VIAL IV PRN ×4 (13:54→19:13)
[2019-03-30] MEDS ORDERED: LACTULOSE 20 GM/30 ML ORAL.SOL PO PRN ×2 (13:54→19:13)
[2019-03-30] MEDS ORDERED: FLEETS ADULT ENEMA PR PRN ×2 (13:56→19:13)
[2019-03-30] MEDS ORDERED: LACTATED RINGERS 1,000 ML IV SCH ×4 (13:57→19:13)
[2019-03-30] MEDS ORDERED: 0.9 % SODIUM CHLORIDE 10 ML SYRINGE IV SCH (14:00)
[2019-03-30] MEDS ORDERED: ceFAZolin 2 GM in DEXTROSE 5% IN WATER 50 ML IV SCH (16:00)
[2019-03-30] MEDS ORDERED: GENTAMICIN SULFATE 800 MG/20 ML VIAL IR ONE (16:10)
[2019-03-30] MEDS ORDERED: PROPOFOL 200 MG/20 ML VIAL IV ONE (16:25)
[2019-03-30] MEDS ORDERED: KETAMINE 100 MG/ML ML IV ONE (16:25)
[2019-03-30] MEDS ORDERED: fentaNYL 100 MCG/2 ML VIAL IV ONE (16:25)
[2019-03-30] MEDS ORDERED: LIDOCAINE HCL/PF 100 MG/5 ML SYRINGE IV ONE (16:25)
[2019-03-30] MEDS ORDERED: TRANEXAMIC ACID 1,000 MG/10 ML VIAL IV ONE (16:25)
[2019-03-30] MEDS ORDERED: DEXAMETHASONE 10 MG/ML VIAL IV ONE (16:25)
[2019-03-30] MEDS ORDERED: diphenhydrAMINE 50 MG/ML VIAL IV PRN ×2 (17:50→19:13)
[2019-03-30] MEDS ORDERED: LACTATED RINGERS 250 ML IV PRN ×2 (17:50→19:13)
[2019-03-30] MEDS ORDERED: BENZOCAINE/MENTHOL 1 LOZENGE PO PRN ×2 (17:50→19:13)
[2019-03-30] MEDS ORDERED: MEPERIDINE 25 MG/ML SYRINGE IV PRN ×2 (17:50→19:13)
[2019-03-30] MEDS ORDERED: FLUMAZENIL 0.1 MG/ML ML IV PRN ×2 (17:50→19:13)
[2019-03-30] MEDS ORDERED: NALOXONE HCL 0.4 MG/ML VIAL IV PRN ×2 (17:50→19:13)
[2019-03-30] MEDS ORDERED: PROMETHAZINE 25 MG/ML VIAL IV PRN ×2 (17:50→19:13)
[2019-03-30] MEDS ORDERED: ACETAMINOPHEN 600 MG/60 ML BOTTLE IV ONE (17:50)
--- NOTE | 2019-03-30 18:12 | Brief Operative Note ---
Date of procedure: 03/30/19 Pre-op diagnosis: Right femur periprosthetic fx Post-op diagnosis: same Procedure: Right periprosthetic fx orif Grafts/Implants: Yes Anesthesia: GETA Surgeon: Arron Magaña Head Banquet Waiter/Waitress: Hayder Jimenez Estimated blood loss (cc): 100 Specimens Removed/Pathology: none sent Condition: stable Disposition: PACU
[2019-03-30] MEDS: fentaNYL 100 MCG/2 ML VIAL IV PRN ×4 (18:31→18:58)
--- NOTE | 2019-03-30 18:36 | XRay Report ---
CLINICAL INFORMATION: right hip ORIF COMPARISON: None. FINDINGS: Multiple digital images from the OR show lateral plate transfixed by multiple screws extending from the subtrochanteric region of the proximal femur to the distal femoral metaphysis. There are multiple cerclage wires adhering the plate to the proximal femur. Relationships appear anatomic IMPRESSION: Lateral plate and screws transfixing the femur. No fracture line identified Interpreted and Authenticated by: Papa Monique 03/30/19
[2019-03-30] MEDS ORDERED: fentaNYL 100 MCG/2 ML VIAL IV PRN (19:13)
--- NOTE | 2019-03-30 19:25 | Consultation ---
DATE OF CONSULTATION: 03/30/2019 This is a consultation from the emergency room. BRIEF HISTORY: The patient is an 88-year-old female, who was admitted in the emergency room for a fall on 03/30/2019, complaining of right hip pain, was unable to ambulate, was brought in to the emergency room where she was subsequently x-rayed and diagnosed with a periprosthetic fracture on the right hip. This is an 88-year-old female, who is usually quite confused. She fell in her room at [facility] at approximately 6:30 p.m. last night where she then was brought to the emergency room early this morning. She reported hitting her head and her right hip. No loss of consciousness. Right hip with increasing pain and inability to move around. She had a CT of her brain which was apparently normal; and the hip CT and x-rays show spiral fracture, middle third. The proximal third appears still to be well fixed. Cup was well positioned as well. No other fracture seen. She also has many other problems. She has a right foot drop which is chronic. She has had a cerebrovascular accident, which is chronic; chronic kidney disease. She has had acute kidney injury, urinary retention, low blood pressure. She has had other chronic illnesses such as anemia, dyspnea, weakness, bronchitis. She has had lung disease quite often which was acute on chronic COPD with acute exacerbations, anxiety, pulmonary fibrosis. PAST SURGICAL HISTORY: She has had bilateral total hip arthroplasty, history of a hysterectomy. She has had knee surgery as well. Cataract surgery as well. FAMILY HISTORY: She has had a mother with malignant neoplasm and father of stomach cancer. SOCIAL HISTORY: The patient has, otherwise, [facility], somewhat confused on a chronic basis. MEDICATIONS: Listed. She does take Tylenol p.r.n. for pain, Dulcolax laxative 10 mg once a day p.r.n. for constipation. She is on salmon calcitonin synthetic by nasal spray; iron for chronic anemia; levothyroxine, which is 88 mcg daily. She takes nitrofurantoin, Macrobid 100 mg tablet, Seroquel 25 mg at bedtime, and Buspirone 7.5 mg p.o. b.i.d. ALLERGIES: CODEINE AND SULFA. PHYSICAL EXAMINATION: VITAL SIGNS: Today her pulse of 81, respiratory rate is 16, blood pressure 130/77, pulse ox 95. GENERAL: Very pleasant, alert female, who recalls very little about the events of today other than complaining of pain. Extraocular movements intact. NECK: Nontender and supple. CARDIOVASCULAR: Regular rate and rhythm. No murmurs. ABDOMEN: Soft, nontender. PULMONARY: Clear bilaterally without wheezes or rhonchi. EXTREMITIES: Demonstrates a right foot with external rotation without clubbing or cyanosis. NEURO: Neurologically, she has weakness with dorsal extension of the right foot. Good capillary refill is noted. Cranial nerves are intact as seems. LABORTORIES: She has hemoglobin of 12, hematocrit of 35.7, platelet count 259. Her chem-7, she does have a glucose of 120, BUN of 27, creatinine of 1.2. White count is 12,000; hemoglobin 11.9; hematocrit of 35.7. DIAGNOSIS: Spiral fracture of the right hip according to the x-rays and CT scan, this diagnosis of right spiral fracture is stable for prosthesis; advanced dementia; low blood pressure; chronic anemia; chronic obstructive pulmonary disease; advanced age; and hypothyroidism. The hospitalist, Dr. Garnett, reviewed the patient's EKG and agreed that the patient is able to go for surgery though she is high risk. I talked to her power of deputy prosecuting attorney and she agreed to proceed given the risk and the benefits. These risks were quite high up to including infection and even . Without surgery, I think it would be a certain , laying and languishing in bed, unable to ambulate or turn and would prohibit much care. We agreed and we proceeded with the case. The patient's power of deputy prosecuting attorney was signed for consent form for open reduction and internal fixation of the periprosthetic fracture. TANYA:shemar Job ID: [id number] Doc ID: [id number] Arron Magaña MD
[2019-03-30] MEDS ORDERED: SENNOSIDES 1 TABLET PO PRN ×2 (21:00)
[2019-03-30] MEDS ORDERED: QUEtiapine 25 MG TABLET PO SCH ×2 (21:00)
[2019-03-30] MEDS ORDERED: DOCUSATE SODIUM 100 MG CAPSULE PO SCH (21:00)
[2019-03-30] MEDS ORDERED: busPIRone 5 MG TABLET PO SCH (21:00)
[2019-03-30] MEDS: 0.9 % SODIUM CHLORIDE 10 ML SYRINGE IV SCH (21:40)
[2019-03-30] MEDS: busPIRone 5 MG TABLET PO SCH (22:31)
[2019-03-30] MEDS: DOCUSATE SODIUM 100 MG CAPSULE PO SCH (22:31)
[2019-03-31] MEDS: 0.9 % SODIUM CHLORIDE 10 ML SYRINGE IV SCH ×3 (05:14→21:23)
[2019-03-31 05:32] LABS: Basophils # (Auto) 0 K/mcL (0.0-0.3); Basophils % (Auto) 0.2 % (0.0-2.0); Eosinophils # (Auto) 0 K/mcL (0.0-0.7); Eosinophils % (Auto) 0.1 % (0.0-7.0); Granulocytes % (Auto) 83.8 % (38.0-78.0); Hematocrit 30.9 % (36.0-48.0); Hemoglobin 10.2 g/dL (12.0-15.0); Lymphocytes # (Auto) 0.8 K/mcL (1.5-4.8); Lymphocytes % (Auto) 10.6 % (15.5-49.0); Mean Cell Volume 91.5 fL (80.0-100.0); Mean Corpuscular HGB Conc 33.2 g/dL (31.0-36.0); Mean Platelet Volume 7.7 fL (7.4-10.4); Monocytes # (Auto) 0.4 K/mcL (0.1-0.9); Monocytes % (Auto) 5.3 % (1.0-12.0); Platelet Count 241 K/mcL (140-440); RBC 3.38 M/mcL (4.00-5.20); Red Cell Distribution Width 13.4 % (11.5-14.5)
[2019-03-31 05:51] LABS: ALT/SGPT 11 U/l (0-40); AST/SGOT 18 U/l (0-37); Albumin 2.9 gm/dL (3.2-5.2); Albumin/Globulin Ratio 0.9 (1.0-2.3); Alkaline Phosphatase 53 U/L (39-117); Bilirubin,Direct < 0.2 mg/dL (0.0-0.3); Bilirubin,Total 0.3 mg/dL (0.0-1.0); Blood Urea Nitrogen 25 mg/dl (8-23); Calcium 8.8 mg/dl (8.6-10.4); Carbon Dioxide 26 mmol/L (22-30); Chloride 98 mmol/L (96-108); Globulin 3.4 gm/dL (2.2-3.7); Glomerular Filtration Rate 50; Glucose 140 mg/dL (70-105); Lactate Dehydrogenase 189 U/L (94-250); Triglycerides 91 mg/dl (<150); Uric Acid 5.7 mg/dL (2.5-8.0)
--- NOTE | 2019-03-31 07:19 | Internal Med Progress Note ---
Medical - PN: Subj Patient information: Note initiated : 03/31/19 at 7:17 am Service Date, if different from initiated Date: [] Patient: Josephine Lowery a 88 y/o F admitted on 03/30/19 for fall, right hip pain. Chief Complaint: [] Interval history: Ms. Lowery is a 88 year old F Presents the ED after she tripped and fell in her room, at [facility], about 6:30 PM. She reports hitting her head and right hip. No loss of consciousness. Right hip with increased pain. CT brain no acute. Case was discussed with orthopedic surgeon, Dr. Chacko. She does know that she is here because she fell and has a hip fracture. But otherwise is a poor historian and I am unable to get any other history from her. He does admit to some hip pain but unable to get accurate review of systems. 03/31 Resting comfortably in bed. No complaints. No overnight events. Review of Systems: denies headache/fever/chills/nausea/vomiting/chest or abdominal pain/cough/dyspnea/diarrhea. Otherwise see above. - Constitutional Vitals: Vital Signs Temp Pulse Resp BP Pulse Ox 98.4 F 80 20 140/90 98 03/31/19 04:01 03/31/19 04:01 03/31/19 04:01 03/31/19 04:01 03/31/19 04:01 Period Temp Pulse Resp BP Sys/Rodriguez Pulse Ox Last 24 Hr 97.7 F-99.2 F 62-94 14-20 92-156/53-102 91-100 Intake and Output 03/30/19 03/31/19 03/31/19 21:59 05:59 13:59 Intake Total 1215 230 Output Total 700 275 Balance 515 -45 Weight 59.421 kg Intake & Output: Intake & Output 03/30/19 03/31/19 03/31/19 21:59 05:59 13:59 Intake Total 1215 230 Output Total 700 275 Balance 515 -45 Weight 59.421 kg Intake: IV 165 50 Lactated Ringers 1,000 ml @ 40 105 mls/hr IV .Q24H [facility] Rx#: [id number] Ancef 2 gm In Dextrose 5% in 50 Water 50 ml @ 100 mls/hr IV PREOP DELL[facility] Rx#:[id number] Oral 180 IV - Manual Only 1050 Output: Urine Catheter Amount 400 275 Estimated Blood Loss 300 Other: Urine Appearance Clear Uretheral (Jones) Sediment Sediment Urine Color Pale Bright Yellow Uretheral (Jones) Bright Yellow Bright Yellow Exam: General: Alert, Awake, No acute Distress Eyes/N/T: EOMI Head/Neck: neck supple, CV: RRR, No murmurs, Pulm: Clear b/l, no wheezing/rhonchi/rales Abd: soft, nontender, +BS x4 Ext: no clubbing/cyanosis/edema Neuro: Alert, no focal deficits, Skin: warm/dry Medical - PN: Obj Da - Labs CBC & Chem 7: 03/31/19 04:10 03/31/19 04:10 Labs: Abnormal Lab Results 03/31/19 03/31/19 03/29/19 04:10 04:10 22:55 WBC RBC 3.38 L Hgb 10.2 L Hct 30.9 L Gran % 83.8 H Lymph % (Auto) 10.6 L Gran # Lymph # (Auto) 0.8 L BUN 25 H 27 H Creatinine 1.2 H Glucose 140 H 120 H Albumin 2.9 L Albumin/Globulin Ratio 0.9 L Urine WBC 03/29/19 03/29/19 22:55 22:51 WBC 12.0 H RBC 3.89 L Hgb 11.9 L Hct 35.7 L Gran % 79.2 H Lymph % (Auto) 11.8 L Gran # 9.5 H Lymph # (Auto) 1.4 L BUN Creatinine Glucose Albumin Albumin/Globulin Ratio Urine WBC 6 H Meds: Medications Acetaminophen (Tylenol) 650 mg PO Q6HP PRN PRN Reason: PAIN/FEVER > 101 Hydrocodone Bitart/Acetaminophen ([place] 5/325mg) 1 tab PO Q4HP PRN PRN Reason: PAIN LEVEL 3-6 Albuterol/Ipratropium (Duoneb) 3 ml NEB Q4HP PRN PRN Reason: Shortness Of Breath Buspirone HCl (Buspar) 7.5 mg PO BID [facility] Last Admin: 03/30/19 22:31 Dose: Not Given Documented by: Docusate Sodium (Colace) 100 mg PO BID [facility] Last Admin: 03/30/19 22:31 Dose: Not Given Documented by: Potassium Chloride 40 meq/ (Dextrose) 520 mls @ 130 mls/hr IV UD PRN PRN Reason: Potassium < 3 Magnesium Sulfate (Magnesium Sulfate) 2 gm in 50 mls @ 50 mls/hr IV UD PRN PRN Reason: Magnesium </= 1.6 Lactulose (Cephulac) 10 gm PO DAILYP PRN PRN Reason: Constipation Levothyroxine Sodium (Synthroid) 88 mcg PO ACB DELLA Morphine Sulfate (Morphine) 0 mg IV Q3HP PRN PRN Reason: Pain Last Admin: 03/30/19 23:40 Dose: 2 mg Documented by: Ondansetron HCl (Zofran) 4 mg IV Q4HP PRN PRN Reason: Nausea And Vomiting Polyethylene Glycol (Miralax) 17 gm PO DAILYP PRN PRN Reason: Constipation Potassium Chloride (Kdur) 40 meq PO UD PRN PRN Reason: Potssium is 3-3.5 Potassium Chloride (Kdur) 40 meq PO UD PRN PRN Reason: Potassium < 3 Quetiapine Fumarate (Seroquel) 25 mg PO HS [facility] Last Admin: 03/30/19 22:31 Dose: Not Given Documented by: Senna (Senokot) 2 tab PO HSP PRN PRN Reason: Constipation Sodium Biphosphate/Sodium Phosphate (Fleets Adult) 1 dose UT DAILYP PRN PRN Reason: Constipation Sodium Chloride (Saline Flush) 10 ml IV Q8 [facility] Last Admin: 03/31/19 05:14 Dose: 10 ml Documented by: Medical - PN: A/P - Time Spent With Patient Total time spent is greater than 50% in coordination of care (as documented) at patient's floor/unit and/or counseling patient: - Narrative A/P Narrative: A: *Right periprosthetic spiral fracture from trip/fall: s/p ORIF (03/30) *Advanced Dementia: on buspar/seroquel *CKD IIIb: *Be a chronic: *COPD( )/Pulm fibrosis: *Hypothyroidism: * P: -Dr. Magaña for Ortho -Patient is at increased risk perioperatively given advanced age dementia underlying comorbidities, case d/w with POA in ED. -pain control -high risk for hospital delirium - -IS -pt/ot -ppx: SCD (post-op per ortho)
[2019-03-31] MEDS ORDERED: LEVOTHYROXINE 88 MCG TABLET PO SCH ×2 (07:30)
--- NOTE | 2019-03-31 07:30 | Operative Note ---
DATE OF OPERATION: 03/30/2019 PREOPERATIVE DIAGNOSIS: Right periprosthetic fracture with a stable component. POSTOPERATIVE DIAGNOSIS: Right periprosthetic fracture with a stable component. PROCEDURE: Right periprosthetic fracture open reduction and internal fixation with a supracondylar plate and cables. SURGEON: Arron Magaña MD [employer] MAKE UP HELPER: Hayder Jimenez PA-C. This provider's expertise and technical skill were required throughout the case. The CECY assisted with preoperative coordination, intraoperative retraction, wound closure, dressing and splint application, as well as postoperative documentation and care coordination. ANESTHESIA: General LMA anesthesia. COMPLICATIONS: None. DESCRIPTION OF PROCEDURE: The patient was brought to the operating room and put to sleep with general LMA anesthesia. Once asleep, the patient had the right leg sterilely prepped and draped in the usual sterile fashion. Timeout was performed. We confirmed the operative site. Preop antibiotics and tranexamic acid were given. We then measured the femur length. We then placed a supracondylar plate from the supracondylar region up to the greater trochanter. This was a 38 cm supracondylar plate. We placed a screw distally and 1 proximally and then placed 4 additional screws proximally and 4 cables distally. We placed 4 supracondylar screws and then an additional 4 screws in the shaft and kept about a 90 mm segment for play. The patient tolerated this well. We irrigated thoroughly. We closed the fascial layer with Stratafix. We closed the skin with 2-0 Vicryl and lincoln. Images were saved. The patient tolerated this well, had excellent reduction. RBH:jose Job ID: [id number] Doc ID: [id number] Arron Magaña MD
--- NOTE | 2019-03-31 07:46 | Orthopedic Progress Note ---
Subjective Patient information: Note initiated : 03/31/19 at 7:43 am Service Date, if different from initiated Date: [] Patient: Josephine Lowery 88 y/o F admitted on 03/30/19 for fall, right hip pain. Chief Complaint: [Pt is stable this morning on post operative day 1 without any significant concerns or complaints. Patients vital signs have remained stable. Patients dressing is dry and is grossly intact from a neurovascular and motor standpoint. Patients 10 point ROS is otherwise negative. Confused though] Objective Vital signs: Vital Signs Temp Pulse Pulse Resp BP BP BP 03/31/19 07:19 98.2 F 77 18 143/79 03/31/19 04:01 98.4 F 80 20 140/90 03/31/19 02:01 62 20 110/60 03/31/19 02:00 20 03/31/19 01:51 71 20 101/64 03/31/19 00:01 78 18 101/64 03/30/19 23:01 73 18 102/65 03/30/19 22:31 88 20 141/86 03/30/19 22:01 80 20 98/66 03/30/19 21:45 78 03/30/19 21:31 86 127/75 03/30/19 21:01 84 99/65 03/30/19 20:46 93 H 98/74 03/30/19 20:31 94 H 129/78 03/30/19 20:16 93 H 129/86 03/30/19 20:10 88 94/68 03/30/19 20:02 97.7 F 82 105/66 03/30/19 20:00 03/30/19 19:02 98.3 F 90 18 139/81 03/30/19 18:46 98.0 F 93 H 15 156/80 03/30/19 18:30 94 H 14 153/102 03/30/19 18:25 88 15 125/90 03/30/19 18:20 76 14 125/72 03/30/19 18:16 98.0 F 83 16 122/70 03/30/19 14:57 03/30/19 13:20 98.8 F 93 H 20 145/82 03/30/19 13:13 130/77 03/30/19 13:02 99.2 F H 81 18 130/77 03/30/19 13:01 130/77 03/30/19 12:00 102/60 03/30/19 11:00 81 120/67 03/30/19 10:00 78 102/83 03/30/19 09:40 78 93/61 03/30/19 09:19 74 03/30/19 08:50 73 03/30/19 08:02 81 92/53 03/30/19 08:01 83 Pulse Ox 03/31/19 07:19 99 03/31/19 04:01 98 03/31/19 02:01 100 03/31/19 02:00 100 03/31/19 01:51 100 03/31/19 00:01 100 03/30/19 23:01 99 03/30/19 22:31 98 03/30/19 22:01 100 03/30/19 21:45 100 03/30/19 21:31 100 03/30/19 21:01 100 03/30/19 20:46 99 03/30/19 20:31 95 03/30/19 20:16 97 03/30/19 20:10 98 03/30/19 20:02 97 03/30/19 20:00 97 03/30/19 19:02 100 03/30/19 18:46 100 03/30/19 18:30 100 03/30/19 18:25 100 03/30/19 18:20 100 03/30/19 18:16 100 03/30/19 14:57 98 03/30/19 13:20 96 03/30/19 13:13 03/30/19 13:02 95 03/30/19 13:01 03/30/19 12:00 03/30/19 11:00 95 03/30/19 10:00 91 03/30/19 09:40 95 03/30/19 09:19 96 03/30/19 08:50 97 03/30/19 08:02 96 03/30/19 08:01 96 Intake and Output 03/30/19 03/31/19 03/31/19 21:59 05:59 13:59 Intake Total 1215 230 Output Total 700 275 Balance 515 -45 Intake: IV 165 50 Lactated Ringers 1,000 ml @ 40 105 mls/hr IV .Q24H [facility] Rx#: [id number] Ancef 2 gm In Dextrose 5% in 50 Water 50 ml @ 100 mls/hr IV PREOP [facility] Rx#:[id number] Oral 180 IV - Manual Only 1050 Output: Urine Catheter Amount 400 275 Estimated Blood Loss 300 Other: Urine Appearance Clear Uretheral (Jones) Sediment Sediment Urine Color Pale Bright Yellow Uretheral (Jones) Bright Yellow Bright Yellow Weight 131 lb Intake & Output: Intake & Output 03/30/19 03/31/19 03/31/19 21:59 05:59 13:59 Intake Total 1215 230 Output Total 700 275 Balance 515 -45 Weight 131 lb Intake: IV 165 50 Lactated Ringers 1,000 ml @ 40 105 mls/hr IV .Q24H [facility] Rx#: [id number] Ancef 2 gm In Dextrose 5% in 50 Water 50 ml @ 100 mls/hr IV PREOP [facility] Rx#:[id number] Oral 180 IV - Manual Only 1050 Output: Urine Catheter Amount 400 275 Estimated Blood Loss 300 Other: Urine Appearance Clear Uretheral (Jones) Sediment Sediment Urine Color Pale Bright Yellow Uretheral (Jones) Bright Yellow Bright Yellow Incision: Yes healing Incision clean and dry: Yes Dressing: Yes clean Weight bearing status: partial Neurological exam IM: Yes motor sensory intact, Yes neurovascular intact Extremities exam IM: Yes Foot pink and warm, Yes neurovascular intact - Labs CBC & BMP: 03/31/19 04:10 03/31/19 04:10 Labs: Orthopedic Labs 03/29/19 03/29/19 03/29/19 23:20 23:14 23:00 POC PT 14.2 Pending POC INR 1.2 Pending 03/31/19 03/29/19 04:10 22:55 Hgb 10.2 L 11.9 L Hct 30.9 L 35.7 L Assessment and Plan (1) Hx of fracture of hip The patient has been educated regarding dressing care, Physical Therapy recommendations, home exercises, restrictions, and follow up appointments. The patient has had all necessary DME prescribed. The patient has remained relatively stable during their hospital course. Status: Acute (2) Hx of fracture of hip Status: Acute
[2019-03-31] MEDS: DOCUSATE SODIUM 100 MG CAPSULE PO SCH ×2 (09:17→21:22)
[2019-03-31] MEDS: busPIRone 5 MG TABLET PO SCH ×2 (09:17→21:22)
[2019-03-31] MEDS ORDERED: POTASSIUM CHLORIDE 40 MEQ in DEXTROSE 5% IN WATER 500 ML IV PRN (11:47)
[2019-03-31] MEDS ORDERED: ONDANSETRON 4 MG/2 ML VIAL IV PRN (11:47)
[2019-03-31] MEDS ORDERED: MAGNESIUM SULFATE 2 GM/50 ML BAG IV PRN (11:47)
[2019-03-31] MEDS ORDERED: SENNOSIDES 1 TABLET PO PRN (11:47)
[2019-03-31] MEDS ORDERED: ACETAMINOPHEN 325 MG TABLET PO PRN (11:47)
[2019-03-31] MEDS ORDERED: POTASSIUM CHLORIDE 20 MEQ TABLET PO PRN ×2 (11:47)
[2019-03-31] MEDS ORDERED: LACTULOSE 20 GM/30 ML ORAL.SOL PO PRN (11:47)
[2019-03-31] MEDS ORDERED: FLEETS ADULT ENEMA PR PRN (11:47)
[2019-03-31] MEDS ORDERED: POLYETHYLENE GLYCOL 3350 17 GM PACKET PO PRN (11:47)
[2019-03-31] MEDS ORDERED: IPRATROPIUM/ALBUTEROL 3 ML AMPUL.NEB NEB PRN (11:47)
--- NOTE | 2019-03-31 14:18 | XRay Report ---
CLINICAL INFORMATION: Nondisplaced spiral fracture of the mid femoral diaphysis COMPARISON: Preoperative right hip CT 03/29/2019 FINDINGS: A long malleable plate and multiple screws is seen over the lateral cortex of the femur extending the subtrochanteric region to the distal metaphysis. This transfixes a spiral fracture of the mid femoral diaphysis. This fracture is difficult to appreciate on plain film. Right hip prostheses is anatomically aligned IMPRESSION: ORIF mid spiral fracture of the femoral diaphysis. Anatomic alignment Interpreted and Authenticated by: Papa Monique 03/31/19
[2019-03-31] MEDS: HYDROcodone/APAP 5/325MG TABLET PO PRN (18:04)
[2019-03-31] MEDS: QUEtiapine 25 MG TABLET PO SCH (21:22)
[2019-04-01] MEDS: HYDROcodone/APAP 5/325MG TABLET PO PRN ×4 (03:55→12:13)
[2019-04-01] MEDS: 0.9 % SODIUM CHLORIDE 10 ML SYRINGE IV SCH ×3 (05:43→20:08)
--- NOTE | 2019-04-01 06:57 | Internal Med Progress Note ---
Medical - PN: Subj Patient information: Note initiated : 04/01/19 at 6:55 am Service Date, if different from initiated Date: [] Patient: Josephine Lowery a 88 y/o F admitted on 03/30/19 for fall, right hip pain. Chief Complaint: [] Interval history: Ms. Lowrey is a 88 year old F Presents the ED after she tripped and fell in her room, at [facility], about 6:30 PM. She reports hitting her head and right hip. No loss of consciousness. Right hip with increased pain. CT brain no acute. Case was discussed with orthopedic surgeon, Dr. Chacko. She does know that she is here because she fell and has a hip fracture. But otherwise is a poor historian and I am unable to get any other history from her. He does admit to some hip pain but unable to get accurate review of systems. 03/31 Resting comfortably in bed. No complaints. No overnight events. 04/01 Per nurse patient reported more hip pain through the night. When I visited this morning she appeared to be comfortable. She has no new complaints other than occasional headache. Review of Systems: denies /fever/chills/nausea/vomiting/chest or abdominal pain/c ough/dyspnea/diarrhea. Otherwise see above. - Constitutional Vitals: Vital Signs Temp Pulse Resp BP Pulse Ox 98.4 F 90 14 122/70 90 04/01/19 03:33 04/01/19 03:33 04/01/19 03:33 04/01/19 03:33 04/01/19 03:33 Period Temp Pulse Resp BP Sys/Rodriguez Pulse Ox Last 24 Hr 98.2 F-98.5 F 64-90 14-20 101-143/55-79 90-100 Intake and Output 03/31/19 04/01/19 04/01/19 21:59 05:59 13:59 Intake Total 300 300 Output Total 925 Balance 300 -625 Weight 64.41 kg Intake & Output: Intake & Output 03/31/19 04/01/19 04/01/19 21:59 05:59 13:59 Intake Total 300 300 Output Total 925 Balance 300 -625 Weight 64.41 kg Intake: Oral 300 300 Output: Urine Catheter Amount 925 Other: Urine Appearance Clear Urine Color Bright Yellow Urine Odor Normal Exam: General: Alert, Awake, No acute Distress Eyes/N/T: EOMI Head/Neck: neck supple, CV: Tachycardia but regular, No murmurs, Pulm: Clear b/l, no wheezing/rhonchi/rales Abd: soft, nontender, +BS x4 Ext: no clubbing/cyanosis/edema Neuro: Alert, no focal deficits, Skin: warm/dry Medical - PN: Obj Da - Labs CBC & Chem 7: 03/31/19 04:10 03/31/19 04:10 Labs: Abnormal Lab Results 03/31/19 03/31/19 03/29/19 04:10 04:10 22:55 WBC RBC 3.38 L Hgb 10.2 L Hct 30.9 L Gran % 83.8 H Lymph % (Auto) 10.6 L Gran # Lymph # (Auto) 0.8 L BUN 25 H 27 H Creatinine 1.2 H Glucose 140 H 120 H Albumin 2.9 L Albumin/Globulin Ratio 0.9 L Urine WBC 03/29/19 03/29/19 22:55 22:51 WBC 12.0 H RBC 3.89 L Hgb 11.9 L Hct 35.7 L Gran % 79.2 H Lymph % (Auto) 11.8 L Gran # 9.5 H Lymph # (Auto) 1.4 L BUN Creatinine Glucose Albumin Albumin/Globulin Ratio Urine WBC 6 H Meds: Medications Acetaminophen (Tylenol) 650 mg PO Q6HP PRN PRN Reason: PAIN/FEVER > 101 Hydrocodone Bitart/Acetaminophen ([place] 5/325mg) 1 tab PO Q4HP PRN PRN Reason: PAIN LEVEL 3-6 Last Admin: 04/01/19 03:55 Dose: 1 tab Documented by: Albuterol/Ipratropium (Duoneb) 3 ml NEB Q4HP PRN PRN Reason: Shortness Of Breath Buspirone HCl (Buspar) 7.5 mg PO BID [facility] Last Admin: 03/31/19 21:22 Dose: 7.5 mg Documented by: Docusate Sodium (Colace) 100 mg PO BID [facility] Last Admin: 03/31/19 21:22 Dose: 100 mg Documented by: Potassium Chloride 40 meq/ (Dextrose) 520 mls @ 130 mls/hr IV UD PRN PRN Reason: Potassium < 3 Magnesium Sulfate (Magnesium Sulfate) 2 gm in 50 mls @ 50 mls/hr IV UD PRN PRN Reason: Magnesium </= 1.6 Lactulose (Cephulac) 10 gm PO DAILYP PRN PRN Reason: Constipation Levothyroxine Sodium (Synthroid) 88 mcg PO ACB DELLA Morphine Sulfate (Morphine) 0 mg IV Q3HP PRN PRN Reason: Pain Last Admin: 03/31/19 19:00 Dose: 2 mg Documented by: Ondansetron HCl (Zofran) 4 mg IV Q4HP PRN PRN Reason: Nausea And Vomiting Polyethylene Glycol (Miralax) 17 gm PO DAILYP PRN PRN Reason: Constipation Potassium Chloride (Kdur) 40 meq PO UD PRN PRN Reason: Potssium is 3-3.5 Potassium Chloride (Kdur) 40 meq PO UD PRN PRN Reason: Potassium < 3 Quetiapine Fumarate (Seroquel) 25 mg PO HS [facility] Last Admin: 03/31/19 21:22 Dose: 25 mg Documented by: Senna (Senokot) 2 tab PO HSP PRN PRN Reason: Constipation Sodium Biphosphate/Sodium Phosphate (Fleets Adult) 1 dose NE DAILYP PRN PRN Reason: Constipation Sodium Chloride (Saline Flush) 10 ml IV Q8 [facility] Last Admin: 04/01/19 05:43 Dose: 10 ml Documented by: Medical - PN: A/P - Time Spent With Patient Total time spent is greater than 50% in coordination of care (as documented) at patient's floor/unit and/or counseling patient: - Narrative A/P Narrative: A: *Right periprosthetic spiral fracture from trip/fall: s/p ORIF (03/30) *Advanced Dementia: on buspar/seroquel *CKD IIIb: *Be a chronic: *COPD(no home O2)/Pulm fibrosis: *Hypothyroidism: * P: -Dr. Magaña for Ortho -Patient is at increased risk perioperatively given advanced age dementia underlying comorbidities, case d/w with POA in ED. -pain control -high risk for hospital delirium -IS -pt/ot -CM for placement -ppx: SCD (post-op per ortho)
--- NOTE | 2019-04-01 07:01 | Discharge Summary ---
Ortho Discharge - [facility] - Patient Instructions Diet: Regular Diet Activity: activity as tolerated, weight bearing as tolerated Total Hip Protocol: Follow activity instructions as provided by Physical Therapy. Dressing Care: Nateel Ag - leave on for 5 days - Follow Up Plan Follow Up Appointments: Amadeo Maki DO [Primary Care Provider] - Arron Magaña MD [Physician] - Disposition: er SNF Prognosis: Good Rehab Potential: Fair I certify that the patient requires SNF services: Yes Overall status at discharge: patient is progressing back to baseline - Orders For Discharge Prescriptions: HYDROcodone/APAP 5/325MG [[place] 5-325Mg] 1 tab PO Q4HP PRN #60 tab PRN Reason: Pain Level 3-6 Prescription Printed Additional Discharge Orders: Physical Therapy at Discharge - [facility] Location: None Selected Toilet Riser Discharge Order Location: None Selected Walker Location: None Selected
--- NOTE | 2019-04-01 10:30 | Discharge Summary ---
Medical - DS: Prov Patient information: Note initiated : 04/01/19 at 10:28 am Service Date, if different from initiated Date: [] Patient: Josephine Lowery 88 y/o F admitted on 03/30/19 for fall, right hip pain. Chief Complaint: [] Date of admission: 03/30/19 13:02 Discharge date: 04/02/19 Primary care physician: Amadeo Maki Consults: 03/30/19 Consult to Physician [CONS] Stat Comment: Consulting Provider: Arron Magaña Reason For Exam: Physician to Consult Consult to Physician [CONS] Stat Comment: Consulting Provider: Alexis Garnett Reason For Exam: Physician to Consult Medical - DS: Meds - Discharge Medications Prescriptions: Aspirin [Aspirin EC] 325 mg PO BID #30 tablet. HYDROcodone/APAP 5/325MG [[place] 5-325Mg] 1 tab PO Q4HP PRN #60 tab PRN Reason: Pain Level 3-6 Prescription Printed Active and Home Medications: Home Medications Ondansetron [Zofran ODT] 4 mg SL Q4-6HP PRN #14 tab 02/03/18 [Rx Confirmed 03/30/19 Last Taken Unknown] Acetaminophen [Non-Aspirin] 650 mg PO Q4HP PRN 03/13/18 [History Confirmed 03/30/19 Last Taken 03/04/18 19:18] Bisacodyl [Dulcolax] 10 mg VT ONCE PRN 03/13/18 [History Confirmed 03/30/19 Last Taken Unknown] Na Phos,M-B/Na Phos,Di-Ba [Fleets Adult] 1 dose VT DAILYP PRN 03/13/18 [History Confirmed 03/30/19 Last Taken Unknown] Polyethylene Glycol 3350 [Miralax] 17 gm PO ONCE 03/13/18 [History Confirmed 03/30/19 Last Taken Unknown] HYDROcodone/ACETAMINOPHEN [[place] 5-325 Tablet] 1 each PO Q6H #20 tab 05/22/18 [Rx Confirmed 03/30/19 Last Taken Unknown] Calcitonin,[place],Synthetic [Calcitonin-[place]] 3.7 ml NS 03/29/19 [History Last Taken Unknown] Ferrous Sulfate [Iron] 325 mg PO DAILY 03/29/19 [History Confirmed 03/30/19 Last Taken Unknown] Levothyroxine Sodium [Levoxyl] 88 mcg PO DAILY 03/29/19 [History Confirmed 03/30/19 Last Taken Unknown] Nitrofurantoin Monohyd/M-Cryst [Macrobid 100 mg Capsule] 100 mg PO BID 03/29/19 [History Confirmed 03/30/19 Last Taken Unknown] QUEtiapine [SEROquel] 25 mg PO HS 03/29/19 [History Confirmed 03/30/19 Last Taken Unknown] busPIRone HCL [Buspirone HCl] 7.5 mg PO BID 03/29/19 [History Confirmed 03/30/19 Last Taken Unknown] HYDROcodone/APAP 5/325MG [[place] 5-325Mg] 1 tab PO Q4HP PRN #60 tab 04/01/19 [Rx Last Taken Unknown] Medical - DS: Hosp Hospital Course: Ms. Lowery is a 88 year old F Presents the ED after she tripped and fell in her room, at [facility], about 6:30 PM. She reports hitting her head and right hip. No loss of consciousness. Right hip with increased pain. CT brain no acute. Case was discussed with orthopedic surgeon, Dr. Chacko. She does know that she is here because she fell and has a hip fracture. But otherwise is a poor historian and I am unable to get any other history from her. He does admit to some hip pain but unable to get accurate review of systems. 03/31 Resting comfortably in bed. No complaints. No overnight events. 04/01 Per nurse patient reported more hip pain through the night. When I visited this morning she appeared to be comfortable. She has no new complaints other than occasional headache. 04/02 No overnight events. Patient stable. [facility] Discharge diagnosis: Right periprosthetic spiral fracture advanced dementia chronic kidney disea Secondary discharge diagnosis: Anemia COPD hypothyroidism - Time Spent with Patient Total time spent providing and/or coordinating discharge services: Greater than 30 minutes Medical - DS: Exam - Constitutional Vitals: Vital Signs Temp Pulse Pulse Resp BP BP BP 04/01/19 09:00 97.8 F 18 124/68 04/01/19 03:33 98.4 F 90 14 122/70 04/01/19 00:16 98.2 F 77 14 108/66 03/31/19 17:00 98.5 F 87 16 143/76 03/31/19 12:31 82 101/55 03/31/19 12:30 80 03/31/19 11:02 98.2 F 20 115/63 Pulse Ox 04/01/19 09:00 91 04/01/19 03:33 90 04/01/19 00:16 91 03/31/19 17:00 94 03/31/19 12:31 100 03/31/19 12:30 100 03/31/19 11:02 100 Intake and Output 03/31/19 04/01/19 04/01/19 21:59 05:59 13:59 Intake Total 300 300 Output Total 925 Balance 300 -625 Intake: Oral 300 300 Output: Urine Catheter Amount 925 Other: Urine Appearance Clear Urine Color Bright Yellow Urine Odor Normal Weight 64.41 kg Medical - DS: A/P - Patient/Caregiver Discharge Instructions Activity: as per physical therapy Diet: Regular Diet Prescriptions: Aspirin [Aspirin EC] 325 mg PO BID #30 tablet. HYDROcodone/APAP 5/325MG [[place] 5-325Mg] 1 tab PO Q4HP PRN #60 tab PRN Reason: Pain Level 3-6 Prescription Printed Other Amb Orders: Physical Therapy at Discharge - [facility] Location: None Selected [facility] Discharge Order Location: None Selected Walker Location: None Selected - Follow up Plan Follow up with: Amadeo Maki DO [Primary Care Provider] - Arron Magaña MD [Physician] - Disposition: Xfer SNF Prognosis: Undetermined Rehab Potential: Fair I certify that the patient requires SNF services: Yes Overall status at discharge: patient is progressing back to baseline
[2019-04-01] MEDS: busPIRone 5 MG TABLET PO SCH ×2 (12:13→20:06)
[2019-04-01] MEDS: DOCUSATE SODIUM 100 MG CAPSULE PO SCH ×2 (12:14→20:08)
[2019-04-01] MEDS: LEVOTHYROXINE 88 MCG TABLET PO SCH (12:22)
[2019-04-01] MEDS: ASPIRIN 325 MG ENTERIC COATED TABLET PO SCH ×2 (15:13→20:08)
[2019-04-01] MEDS: QUEtiapine 25 MG TABLET PO SCH (20:08)
[2019-04-02] MEDS: 0.9 % SODIUM CHLORIDE 10 ML SYRINGE IV SCH (05:32)
[2019-04-02] MEDS: LEVOTHYROXINE 88 MCG TABLET PO SCH (07:34)
[2019-04-02] MEDS: DOCUSATE SODIUM 100 MG CAPSULE PO SCH (08:36)
[2019-04-02] MEDS: busPIRone 5 MG TABLET PO SCH (08:36)
[2019-04-02] MEDS: ASPIRIN 325 MG ENTERIC COATED TABLET PO SCH (08:37)
[2019-04-02] MEDS: HYDROcodone/APAP 5/325MG TABLET PO PRN (08:37)
[2019-04-02] MEDS ORDERED: FLU VACC QS2019-20(6MOS UP)/PF 60 MCG/0.5 ML SYRINGE IM ONE (12:00)
[2019-04-03] MEDS ORDERED: CALCITONIN SALMON SYNTHETIC NAS SCH (09:00)
== END 2019-04-02 13:07 | DRG 481 ==
LOC: ED 19:21 → ICU 03-30 13:02 → MEDSUR 03-31 13:44
PROVIDERS: ADMIT Internal Medicine; ATTEND Internal Medicine